=== PATIENT | female | born 1980 | race Caucasian/White ===

== ENCOUNTER 2017-06-21 00:37 | Emergency (ER) | payer MEDICAID ==
[~2017-06-21] VITALS: Ht 160 cm; Wt 120.2 kg
[~2017-06-21 00:37] MED LIST: ATORVASTATIN CA10 M1 PO; BACTROBAN2% TP; ESCITALOPRAM20 MG PO; METFORMIN 500M500 M1 PO; OMEPRAZOLE40 MG PO; TOPIRAMATE50 MG PO; TRIAMCINOL15 GM/TUBE TP
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
--- OUTSIDE RECORDS SUMMARY | 2017-06-21 01:29 | External Medical Summary Rpt ---
Author Author , RACQUEL Beltran RACQUEL Address Unknown Phone [email or web address] Team Providers Care Admittance Attendant Name Role Phone [employer], Unavailable Unavailable [facility] [employer] CAROLANN JAM, CAROLANN Unavailable Unavailable J[facility] Unavailable Unavailable DEPARTMENT, [facility] Unavailable Unavailable DEPARTMENT, [facility] RYLAND GRAY, Unavailable Unavailable RYLAND GRAY M L, Unavailable Unavailable Severo BAUER, GALDINO Unavailable Unavailable PEDRO CURE, CURE Unavailable Unavailable [facility], Unavailable Unavailable [facility] LASHON DECALVO, Unavailable Unavailable EARLINE V, LASHON DECALVO, EARLINE V REGINALDO JARAMILLO, CLINT, Unavailable Unavailable REGINALDO QUINONES LEANNE, JONI Unavailable Unavailable LEANNE RICO ANT, RICO Unavailable Unavailable ANT ALLI RICO E, Unavailable Unavailable ALLI RICO ANNE E, Unavailable Unavailable RAYSHAWN ALFARO GORMark DEN, GORE DEN Unavailable Unavailable GORE DEN, GORE DEN Unavailable Unavailable GARRETT LUCAS, GARRETT LUCAS Unavailable Unavailable BLU NAN, BLU Unavailable Unavailable NAN BLU NAN, BLU Unavailable Unavailable NAN PUJA CAAL, Unavailable Unavailable PUJA CAAL, Unavailable Unavailable [facility] Unavailable Unavailable INC, [facility] GARCIA MONISHA, GARCIA Unavailable Unavailable MONISHA JOYNER NERY, JOYNER NERY Unavailable Unavailable ANYA GABRIEL, JOYNER NERY Unavailable Unavailable KYLE JOYNER, Unavailable Unavailable KYLE JOYNER KEEF KIM Unavailable Unavailable [facility] Unavailable Unavailable [facility], [facility] Unavailable Unavailable [facility], [facility], Unavailable Unavailable [facility] & Unavailable [facility]available [facility] & Unavailable [facility]available [facility] Unavailable Unavailable [facility], [facility] Unavailable Unavailable [facility], [facility] STEVEN IMLLIGAN Unavailable Unavailable ITZEL [facility], [facility] Unavailable Unavailable CENTER, [facility] KATHLEEN BUCHANAN V, Unavailable Unavailable DEWAYNE KATHLEEN Perez [facility] Unavailable Unavailable SERVICES, [facility] Unavailable Unavailable CENTER,, [facility] Unavailable Unavailable [facility], [facility] Unavailable Unavailable ASSOCIAT, [facility] Unavailable Unavailable SURGERY, [facility] Unavailable Unavailable MEDICAL, [facility] Unavailable Unavailable MEDICAL CENTER, [facility] METHIERNO WATKINS P, Unavailable Unavailable MEESE THIERNO P CAMACHO THO, CAMACHO Unavailable Unavailable THO CAMACHO THO, CAMACHO Unavailable Unavailable THO NEUS ADITYA, NEUS ADITYA Unavailable Unavailable NEUS ADITYA, NEUS ADITYA Unavailable Unavailable NEUS, ELVIRA E, NEUS, Unavailable Unavailable ELVIRA E DIAZ OSMEL, DIAZ OSMEL Unavailable Unavailable [facility], Unavailable Unavailable [facility], [facility] Unavailable Unavailable LAB, [facility] Unavailable Unavailable LAB, [facility] LAB [facility], Unavailable Unavailable [facility], Unavailable Unavailable [facility], Unavailable Unavailable [facility], Unavailable [facility]available [facility] KING ROSA, KING Unavailable Unavailable ROSA JLJORDIN WORLEY, Unavailable Unavailable JLJORDIN WORLEY [facility], Unavailable Unavailable [facility] SHOWER GATICA, SHOWER Unavailable Unavailable GATICA SHOWER GATICA, SHOWER Unavailable Unavailable GATICA SHOWAKILAH PHILLIPS, Unavailable Unavailable SHOWAKILAH PHILLIPS BALLARD C, Unavailable Unavailable LAZARO AGARWAL [facility] Unavailable Unavailable EMERGENCY PH[facility], [facility] SALEH CHR, Unavailable Unavailable SALEH CHR SALEH CHR, Unavailable Unavailable SALEH CHR IGOR, CORTES, Unavailable Unavailable IGOR, CORTES SANDRO JO Unavailable Unavailable SANDRO SHELL Unavailable Unavailable SANDRO COLBERT Unavailable Unavailable CLINT GUDINO, Unavailable Unavailable CLINT JO, EDWARD COLLEEN Unavailable Unavailable JOHANNA LEON, Unavailable Unavailable JOHANNA LEON Purpose Continuity of Care Document - 01-28-2008 through 2016 Problems Code Diagnosis DOS Provider Status M542 CERVICALGIA 02-12-2017 [facility] M5412 RADICULOPAT 12-17-2016 [facility] [id number] LAC W/O FB 09-05-2016 [facility] DAMAGE NAIL INIT [id number] LAC W/O FB 09-05-2016 [facility], W/O DAMAGE PLLC NAIL INITIAL Z720 TOBACCO USE 09-05-2016 [facility] [id number] CHRONIC 06-19-2016 [facility] TENSION-TYP FAMILY E HEADACHE [facility] NOT INTRACTABLE R0683 SNORING 06-19-2016 [facility] Z0000 ENCOUNTER 02-10-2016 LABORATORY GEN ADULT [facility] OF MED EXAM [facility] W/O ABNORMAL FIND Z1151 ENCOUNTER 02-10-2016 [facility] FOR [facility] OF SCREENING [facility] FOR HUMAN PAPILLOMAVI SHAYLA Z131 ENCOUNTER 02-10-2016 [facility] FOR [facility] OF SCREENING [facility] FOR DIABETES MELLITUS R67838 ENCOUNTER 02-10-2016 [facility]AT[facility] FOR [facility] OF SCREENING [facility] FOR LIPOID DISORDERS Z136 ENCOUNTER 02-10-2016 LABORATORY SCREENING M[facility] OF FOR [facility] CARDIOVASCU LAR DISORDERS I49744 ACQUIRED 02-10-2016 LABORATORY ABSENCE OF MART[facility] OF BOTH CERVIX SUSSY H AND UTERUS A67009 ACQUIRED 02-10-2016 LABORATORY ABSENCE OF MART[facility] OF OVARIES [facility] BILATERAL O34878 OTHER 02-01-2016 [facility] MUSCLE [facility] K219 GASTRO-ESOP 01-25-2016 [facility] H REFLUX FAMILY DISEASE [facility] WITHOUT ESOPHAGITIS 16308 UNSPECIFIED 07-13-2015 [facility] ARTHROPATHY SURGERY , LOWER LEG 82372 PAIN IN 07-13-2015 [facility] JOINT GENERAL PELVIC SURGERY REGION AND THIGH 7242 LUMBAGO 07-13-2015 [facility] SURG[facility] 7243 SCIATICA 07-06-2015 [facility] PRIMARY CARE CENTER 90196 SPASM OF 07-06-2015 [facility] MUSCLE PRIMARY CARE CENTER 4611 ACUTE 06-04-2015 [facility] FRONTAL PRIMARY SINUSITIS CARE CENTER 7840 HEADACHE 06-04-2015 [facility] PRIMARY CARE CENTER 7862 COUGH 06-04-2015 [facility] PRIMARY CARE CENTER 71904 OBESITY, 02-10-2015 [facility] 4019 UNSPECIFIED 02-10-2015 [facility] HYPERTENSIO N 53288 OTHER 02-10-2015 [facility] FATIGUE V8542 BODY MASS 02-10-2015 [facility] 45.0-49.9 ADULT 6259 UNSPEC 06-02-2014 [facility] SYMPTOM PRIMARY ASSOC CARE CENTER W/FEMALE GENITAL ORGANS 6272 SYMPTOMATIC 06-02-2014 [facility] PRIMARY MENOPAUSAL/ CARE CENTER FEMALE CLIMACTERIC STATES 48150 DIARRHEA 06-02-2014 [facility] PRIMARY CARE CENTER V4577 ACQUIRED 06-02-2014 [facility] ABSENCE OF PRIMARY ORGAN CARE CENTER GENITAL ORGANS V7231 ROUTINE 06-02-2014 [facility] GYNECOLOGIC PRIMARY AL CARE CENTER EXAMINATION 54934 PAIN IN 03-12-2014 [facility] JOINT, GENERAL LOWER LEG SURGERY 14003 REGULAR 01-07-2014 ANYA GABRIEL ASTIGMATISM 28783 PAIN IN 10-10-2013 [facility] THO JOINT, ANKLE AND FOOT V7612 OTHER 08-20-2013 [facility] SCREENING REGIONAL MAMMOGRAM MEDICAL V074 HORMONE 07-23-2013 [facility] REPLACEMENT THERAPY 7089 UNSPECIFIED 07-07-2013 [facility] 6826 CELLULITIS 06-29-2013 [facility] AND ABSCESS CHR OF LEG EXCEPT FOOT 35348 MIGRAINE 10-07-2012 [facility] UNSP W/O INTRACT W/O STATUS MIGRAINOSUS 4619 ACUTE 09-11-2012 [facility] SINUSITIS, UNSPECIFIED 58254 PAIN IN 09-11-2012 NE[facility] AD[facility]A JOINT, SITE UNSPECIFIED 7245 UNSPECIFIED 09-11-2012 NE[facility] AD[facility] BACKACHE V0481 NEED 08-20-2012 [facility] PROPHYLACTI HEALTH C DEPARTMENT VACCINATION &INOCULATIO N FLU 45946 CONGENITAL 05-17-2012 [facility] UNSPECIFIED 2189 LEIOMYOMA 12-28-2011 SHOWER GATICA OF UTERUS, UNSPECIFIED 6146 PELVIC 12-28-2011 SHOWER GATICA PERITONEAL ADHESIONS, FEMALE 6160 CERVICITIS 12-28-2011 [facility] [place] [facility] ENDOCERVICI TIS 6202 OTHER AND 12-28-2011 [facility] UNSPECIFIED [place] INC OVARIAN CYST 6253 DYSMENORRHE 12-28-2011 SHOWER GATICA A V7284 UNSPECIFIED 12-22-2011 [facility] PRE-OPERATI MEDICAL VE EXAMINATION V7283 OTHER 12-14-2011 SHOWER G[facility]ICA SPECIFIED PRE-OPERATI VE EXAMINATION 19873 UNSPECIFIED 11-28-2011 BL[facility] GANGLION 7931 NONSPEC 08-27-2011 [place] OTH EXAM ASSOCIAT BODY STRUCT LUNG FIELD 75332 URGENCY OF 08-09-2011 LABORATORY URINATION & BIODIAGNOST ICS V7381 SPECIAL 08-09-2011 PATHOLOGY & SCREENING CYTOLOGY EXAMINATION LAB HUMAN PAPILVIRUS 2409 GOITER, 08-01-2011 [place] UNSPECIFIED [facility] ASSOCIAT 7224 DEGENERATIO 08-01-2011 [place] N OF [facility] CERVICAL ASSOCIAT INTERVERTEB RAL DISC 6264 IRREGULAR 07-27-2011 [facility] MENSTRUAL PRIMARY CYCLE CARE CENTER V7791 SCREENING 07-27-2011 [facility] FOR LIPOID PRIMARY DISORDERS CARE CENTER 2564 POLYCYSTIC 07-19-2011 [facility] OVARIES [facility]ARE CENTER 6250 DYSPAREUNIA 07-19-2011 [facility] 23353 GENERALIZED 07-18-2011 LABORATORY PAIN & BIODIAGNOST ICS V762 SCREENING 07-18-2011 [facility] FOR PRIMARY MALIGNANT CARE CENTER NEOPLASM OF THE CERVIX 87910 UNSPECIFIED 03-28-2011 [facility] PRIMARY ARTHROPATHY CARE CENTER SITE UNSPECIFIED 460 ACUTE 03-09-2011 [facility] NASOPHARYNG PRIMARY ITIS CARE CENTER 490 BRONCHITIS 02-10-2011 [facility] SPECIFIED MEDICAL ACUTE OR CHRONIC 04333 OTHER 02-10-2011 [place] DIS[facility] LUNG NOT ASSOCIAT ELSEWHERE CLASSIFIED 7841 THROAT PAIN 02-10-2011 [facility] 3540 CARPAL 12-12-2010 [facility] TUNNEL PRIMARY SYNDROME CARE CENTER 7273 OTHER 12-12-2010 [facility] BURSITIS PRIMARY DISORDERS CARE CENTER 24492 ESOPHAGEAL 10-04-2010 [facility] REFLUX PRIMARY CARE CENTER V679 UNSPECIFIED 10-04-2010 [facility] FOLLOW-UP PRIMARY EXAMINATION CARE CENTER 56781 UNSPECIFIED 09-07-2010 [facility] VAGINITIS PRIMARY AND CARE CENTER VULVOVAGINI TIS 6248 OTH SPEC 09-07-2010 [facility] NONINFLAMMA PRIMARY TORY CARE CENTER DISORDER VULVA&PERIN EUM 5206 DISTURBANCE 02-24-2010 [facility] ERUPTION 5680 PERITONEAL 12-01-2009 [facility] V252 STERILIZATI 12-01-2009 [facility] ANESTHESIA PSC V2509 OTH GENERAL 11-29-2009 [facility] PRIMARY CNSL&ADVICE CARE CONTRACEPT CENTERINC MANAGEMENT 04369 CHRONIC 10-20-2009 [facility] TENSION PRIMARY TYPE CARE HEADACHE CENTERINC V242 ROUTINE 10-20-2009 [facility]IMARY FOLLOW-UP CARE CENTERINC 29284 DIAB W/O 10-19-2009 [facility] COMP TYPE PRIMARY II/UNS NOT CARE STATED CENTERINC UNCNTRL 462 ACUTE 10-19-2009 [facility] PHARYNGITIS [facility]IMARY CARE CENTERINC V700 ROUTINE 10-19-2009 [facility] GENERAL PRIMARY MEDICAL CARE EXAM@HEALTH CENTERINC CARE FACL 91877 POST TERM 09-08-2009 [facility] PG DELIV PRIMARY W/WO CARE MENTION CENTERINC ANTPRTM COND V270 OUTCOME OF 09-08-2009 [facility] DELIVERY PRIMARY SINGLE CARE LIVEBORN CENTERINC 650 NORMAL 09-06-2009 [facility]IV[facility] H ANESTHESIA PSC V221 SUPERVISION 08-30-2009 [facility] OF OTHER PRIMARY NORMAL CARE CENTERINC V286 SCREENING 08-10-2009 [facility] 7821 RASH AND 07-23-2009 [facility] OTHER PRIMARY NONSPECIFIC CARE SKIN CENTERINC ERUPTION 7028 OTHER 06-28-2009 [facility] SPECIFIED PRIMARY DERMATOSES CARE CENTERINC 73889 UNS 04-30-2009 [facility] ABNORM MGMT PRIMARY MOTH CARE ANTPRTM CENTERINC COND/COMP V237 INSUFFICIEN 04-30-2009 [facility] T PRIMARY CARE CARE CENTERINC V222 03-24-2009 [facility] STATE, PRIMARY INCIDENTAL CARE CENTERINC 22637 REFLUX 02-24-2009 [facility] ESOPHAGITIS PRIMARY CARE CENTERINC 463 ACUTE 11-02-2008 Severo BAUER TONSILLITIS L 6269 UNS D/O 09-16-2008 [facility] MENSTRUATIO PRIMARY N&OTH ABN CARE BLEED FE CENTERINC GNT TRACT 53058 UNSPECIFIED 01-28-2008 [facility] Allergies, Adverse Reactions, Alerts Clinical Alert Notifications Alert Diabetes: no A1C in the last 6 months Diabetes: no eye exam in the last 365 days Diabetes: no influenza vaccine in the last 365 days Diabetes: no lipid panel in the last 365 days Diabetes: no urine protein screening in the last 365 days Medications Na ND Rx Da Fi Fi Am Da Di Ph RX Ph St me C No te ll ll ou ys ag ar # ys at rm s nt no ma ic us Or Da si cy ia de te s n re d OM 60 06 07 30 30 00 DE Ac EP 50 -0 -0 .0 00 AN ti RA 50 1- 7- 06 S ve ZO 06 20 20 51 PH LE 50 17 17 19 AR [address] CY 20 MG CA PS UL E AT 00 06 07 30 30 00 DE Ac OR 37 -0 -0 .0 00 AN ti VA 83 1- 7- [address] 95 20 20 51 PH AT 07 17 17 19 AR IN 7 37 MA CY 10 MG TA BL ET ME 23 06 07 30 30 00 DE Ac TF 15 -0 -0 .0 00 AN ti OR 50 1- 7- 00 06 S ve DC 10 20 20 51 PH N 21 17 17 19 AR HC 0 38 MA L CY 50 0 MG TA BL ET ME 23 04 05 30 30 00 DE Ac TF 15 -2 -2 .0 00 AN ti OR 50 6- 6- 00 06 S ve DC 10 20 20 51 PH N 21 17 17 19 AR HC 0 38 MA L CY 50 0 MG TA BL ET AT 00 04 05 30 30 00 DE Ac OR 37 -2 -2 .0 00 AN ti VA 83 6- 6- [address] 95 20 20 51 PH AT 07 17 17 19 AR IN 7 37 MA CY 10 MG TA BL ET OM 55 04 05 30 30 00 DE Ac EP 11 -2 -2 .0 00 AN ti RA 10 6- 6- 00 06 S ve ZO 15 20 20 51 PH LE 81 17 17 19 AR [address] CY 20 MG CA PS UL E AT 55 03 04 30 30 00 DE Ac OR 11 -2 -2 .0 00 AN ti VA 10 1- 8- [address] 12 20 20 51 PH AT 19 17 17 19 AR IN 0 37 MA CY 10 MG TA BL ET ME 23 03 04 30 30 00 DE Ac TF 15 -2 -2 .0 00 AN ti OR 50 1- 1- 06 S ve DC 10 20 20 51 PH N 21 17 17 19 AR HC 0 38 MA L CY 50 0 MG TA BL ET OM 60 03 04 30 30 00 DE Ac EP 50 -2 -2 .0 00 AN ti RA 50 1- 1- 06 S ve ZO 06 20 20 51 PH LE 50 17 17 19 AR [address] CY 20 MG CA PS UL E OM 45 03 04 28 28 00 DE Ac EP 80 -1 -1 .0 00 AN ti RA 20 0- 4- 00 06 S ve ZO 88 20 20 51 PH LE 83 17 17 13 AR [address] CY 20 MG TA BL ET AT 00 02 30 30 00 DE Ac OR 37 -1 -1 .0 00 AN ti VA 83 0- 0- [address] 95 20 20 49 PH AT 07 17 17 99 AR IN 7 38 MA CY 10 MG TA BL ET CY 59 01 02 60 30 00 DE Ac CL 74 -1 -1 .0 00 AN ti OB 60 0- 0- 00 06 S ve EN 17 20 20 49 PH ZA 71 17 17 99 AR ME 0 37 MA IN CY E 10 MG TA BL ET ME 23 02 60 30 00 DE Ac TF 15 -1 -1 .0 00 AN ti OR 50 0- 0- 00 06 S ve DC 10 20 20 50 PH N 21 17 17 81 AR HC 0 36 MA L CY 50 0 MG TA BL ET TO 68 02 60 30 00 DE Ac PI 38 -1 -1 .0 00 AN ti RA 20 0- 0- 00 06 S ve MA 13 20 20 50 PH TE 91 17 17 81 AR 4 37 MA 50 CY MG TA BL ET OM 37 01 02 28 28 00 DE Ac EP 20 -1 -1 .0 00 AN ti RA 50 0- 0- 00 06 S ve ZO 83 20 20 50 PH LE 70 17 17 81 AR [address] CY 20 MG TA BL ET CY 59 12 01 60 30 00 DE Ac CL 74 -0 -0 .0 00 AN ti OB 60 2- 9- 00 06 S ve EN 17 20 20 49 PH ZA 71 16 17 99 AR ME 0 37 MA IN CY E 10 MG TA BL ET AT 00 01 30 30 00 DE Ac OR 37 -0 -0 .0 00 AN ti VA 83 2- 9- [address] 95 20 20 49 PH AT 07 16 17 99 AR IN 7 38 MA CY 10 MG TA BL ET ME 23 12 01 60 30 00 DE Ac TF 15 -0 -0 .0 00 AN ti OR 50 2- 9- 00 06 S ve DC 10 20 20 49 PH N 21 16 17 99 AR HC 0 40 MA L CY 50 0 MG TA BL ET TO 68 12 01 60 30 00 DE Ac PI 38 -0 -0 .0 00 AN ti RA 20 2- 9- 00 06 S ve MA 13 20 20 49 PH TE 91 16 17 99 AR 4 41 MA 50 CY MG TA BL ET SE 16 10 10 3 30 30 DE 64 SH Ac RT 71 -1 -1 .0 AN 17 OW ti RA 40 7- 7- 00 S 34 ER ve LI 61 20 20 PH 6 NE 30 11 11 AR LA 5 MA UR HC CY A L L 10 IN 0 C MG TA BL ET CI 16 09 09 0 28 14 DE 64 SH Ac ME 71 -1 -1 .0 AN 15 OW ti OF 40 4- 5- 00 S 83 ER ve LO 65 20 20 PH 8 XA 20 11 11 AR LA CI 2 MA UR N CY A HC L L IN 50 C 0 MG TA B CL 63 09 09 0 84 14 DE 64 SH Ac IN 30 -1 -1 .0 AN 15 OW ti DA 40 4- 5- 00 S 83 ER ve MY 69 20 20 PH 7 CI 20 11 11 AR LA N 1 MA UR HC CY A L L 15 IN 0 C MG CA PS UL E DI 00 09 09 3 60 30 DE 64 GR Ac CL 78 -0 -0 .0 AN 15 OS ti OF 11 2- 2- 00 S 31 SE ve EN 78 20 20 PH 5 R AC 96 11 11 AR TI 0 MA MO SO CY TH D Y EC IN C 75 MG TA B TI 00 09 09 3 60 20 DE 64 GR Ac ZA 18 -0 -0 .0 AN 15 OS ti NI 54 2- 2- 00 S 31 SE ve DI 40 20 20 PH 4 R NE 05 11 11 AR TI 1 MA MO HC CY TH L Y 4 IN MG C TA BL ET ME 59 08 08 4 1. 1 MA [address] 76 -2 -2 00 YS 49 UN ti OX 24 4- 4- 0 09 G ve YP 53 20 20 LL 1 KA RO 70 11 11 E TH GE [address] N ER GY ON N E FA 15 DC 0 LY MG /M HE L AL TH BU 00 08 08 0 20 3 MA 60 YO Ac TA 59 -2 -2 .0 YS 49 UN ti LB 13 4- 4- 00 09 G ve -A 36 20 20 LL 2 KA CE 90 11 11 E TH TA 1 OB RY DC N N- GY CA N FF FA DC 50 LY -3 25 HE -4 AL 0 TH IB 53 08 08 1 90 30 DE 64 TU Ac UP 74 -2 -2 .0 AN 14 CK ti RO 60 3- 3- 00 S 85 ER ve FE 46 20 20 PH 3 N 60 11 11 AR DA 80 5 MA NA 0 CY MG IN TA C BL ET NA 00 05 05 2 60 30 DE 64 KE Ac ME 09 -0 -0 .0 AN 10 EF ti OX 30 3- 3- 00 S 43 ve EN 14 20 20 PH 4 KI 90 11 11 AR MB 50 5 MA ER 0 CY LY MG IN TA C BL ET SM 49 04 04 0 42 7 DE 64 KE Ac 34 -1 -1 .0 AN 09 EF ti CH 80 4- 4- 00 S 59 ve ES 72 20 20 PH 4 KI T 90 11 11 AR MB CO 9 MA ER NG CY LY ES TI IN ON C RE LI EF CA P AZ 59 03 03 0 6. 5 DE 64 ONOFRE Ac IT 76 -1 -1 00 AN 08 LL ti HR 23 8- 8- 0 S 37 IV ve OM 06 20 20 PH 8 AN YC 00 11 11 AR IN 1 MA CH CY RI 25 ST 0 IN IN MG C A M TA BL ET 00 01 03 1 30 30 DE 64 RA Ac 37 -1 -1 .0 AN 05 NK ti 81 7- 5- 00 S 40 IN ve 08 20 20 PH 2 90 11 11 AR WA 1 MA DE CY M IN C 00 01 01 1 30 30 DE 64 RA Ac 37 -1 -1 .0 AN 05 NK ti 81 7- 7- 00 S 40 IN ve 08 20 20 PH 2 90 11 11 AR WA 1 MA DE CY M IN C RA 53 11 12 1 60 30 DE 64 WI Ac NI 74 -0 -2 .0 AN 02 LS ti TI 60 9- 7- 00 S 49 ON ve DI 25 20 20 PH 2 NE 30 10 10 AR DO 5 MA NA 15 CY LD 0 R MG IN C TA BL ET RA 53 11 11 1 60 30 DE 64 WI Ac NI 74 -0 -0 .0 AN 02 LS ti TI 60 9- 9- 00 S 49 ON ve DI 25 20 20 PH 2 NE 30 10 10 AR DO 5 MA NA 15 CY LD 0 R MG IN C TA BL ET SM 49 10 10 1 45 7 DE 64 TU Ac 34 -1 -1 .0 AN 01 CK ti CL 80 4- 4- 00 S 33 ER ve OT 79 20 20 PH 8 RI 37 10 10 AR DA MA 6 MA NA ZO CY LE IN 1% C CR EA M FL 00 10 10 1 2. 14 DE 64 TU Ac UC 17 -1 -1 00 AN 01 CK ti ON 25 4- 4- 0 S 33 ER ve AZ 41 20 20 PH 7 OL 27 10 10 AR DA E 9 MA NA 15 CY 0 MG IN C TA BL ET ONOFRE 53 10 10 0 14 7 DE 64 TU Ac LF 74 -1 -1 .0 AN 01 CK ti AM 60 4- 4- 00 S 33 ER ve ET 27 20 20 PH 6 HO 20 10 10 AR DA XA 5 MA NA ZO CY LE -T IN MP C DS TA BL ET 00 08 08 2 9. 30 DE 63 GO Ac 17 -2 -2 00 AN 99 RE ti 30 4- 4- 0 S 12 ve 75 20 20 PH 8 DE 00 10 10 AR NI 0 MA SE CY A IN C SE 16 08 08 2 30 30 DE 63 GO Ac RT 71 -2 -2 .0 AN 99 RE ti RA 40 4- 4- 00 S 12 ve LI 61 20 20 PH 7 DE NE 30 10 10 AR NI 5 MA SE HC CY A L 10 IN 0 C MG TA BL ET SE 16 06 08 2 15 30 DE 63 GO Ac RT 71 -2 -0 .0 AN 96 RE ti RA 40 2- 4- 00 S 70 ve LI 61 20 20 PH 2 DE NE 30 10 10 AR NI 5 MA SE HC CY A L 10 IN 0 C MG TA BL ET 63 06 06 0 40 10 DE 63 GO Ac 30 -2 -2 .0 AN 96 RE ti 40 2- 2- 00 S 70 ve 65 20 20 PH 3 DE 70 10 10 AR NI 5 MA SE CY A IN C SE 16 06 06 2 15 30 DE 63 GO Ac RT 71 -2 -2 .0 AN 96 RE ti RA 40 2- 2- 00 S 70 ve LI 61 20 20 PH 2 DE NE 30 10 10 AR NI 5 MA SE HC CY A L 10 IN 0 C MG TA BL ET 00 06 06 2 9. 30 DE 63 GO Ac 09 -2 -2 00 AN 96 RE ti 30 2- 2- 0 S 70 ve 22 20 20 PH 1 DE 39 10 10 AR NI 0 MA SE CY A IN C 00 04 04 1 28 5 DE 40 SM Ac 60 -0 -2 .0 AN 60 IT ti 33 5- 0- 00 S 77 H ve 88 20 20 PH 0 KE 22 10 10 AR NN 1 MA ET CY H L IN C 00 04 04 1 28 5 DE 40 SM Ac 60 -0 -0 .0 AN 60 IT ti 33 5- 5- 00 S 77 H ve 88 20 20 PH 0 KE 22 10 10 AR NN 1 MA ET CY H L IN C PE 00 03 03 0 28 7 DE 63 PO Ac NI 78 -2 -2 .0 AN 92 PE ti CI 11 2- 2- 00 S 87 -B ve LL 65 20 20 PH 8 UR IN 51 10 10 AR NS 0 MA VK CY SA LL 50 IN Y 0 C MG TA BL ET ONOFRE 53 01 01 00 20 10 DE 63 ME Ac LF 48 -2 -2 .0 AN 90 ES ti AM 90 1- 8- 00 S 32 E ve ET 14 [address] HO 60 10 10 AR EP XA 5 MA HE ZO CY N LE P -T MP DS TA BL ET 00 01 01 00 20 3 DE 40 ME Ac 60 -0 -1 .0 AN 60 ES ti 33 6- 4- 00 S 17 E ve 88 [address] 12 10 10 AR EP 8 MA HE CY N P BU 00 11 11 00 45 15 DE 40 MA Ac TA 60 -1 -1 .0 AN 59 RK ti LB 32 0- 9- 00 S 79 ES ve -A 54 20 20 PH 8 BE CE 43 09 09 AR RY TA 2 MA DC CY HATCH N- RO CA LD FF V 50 -3 25 -4 0 IB 55 10 11 00 30 10 DE 63 ME Ac UP 11 -1 -0 .0 AN 86 ES ti RO 10 4- 5- 00 S 01 E ve FE [address] N 40 09 09 AR EP 80 5 MA HE 0 CY N MG P TA BL ET 63 07 07 00 28 7 DE 63 ME Ac 30 -1 -1 .0 AN 81 ES ti 40 0- 6- 00 S 97 E ve 65 [address] 70 09 09 AR EP 5 MA HE CY N P 59 06 06 00 30 30 DE 63 ME Ac 63 -0 -1 .0 AN 80 ES ti 00 8- 8- 00 S 82 E ve [address] 69 09 09 AR EP 0 MA HE CY N P FE 00 04 06 00 90 30 DE 63 ME Ac RR 60 -2 -1 .0 AN 80 ES ti OU 30 9- 8- 00 S 82 E ve S 17 [address] ONOFRE 92 09 09 AR EP LF 9 MA HE AT CY N E P 32 5 MG TA BL ET 59 04 05 00 30 30 DE 63 DE Ac 63 -2 -2 .0 AN 79 L ti 00 2- 1- 00 S 10 CA ve [address] 69 09 09 AR IL 0 MA LO CY DE CA LV O MA RI A IS AB EL V 59 04 05 00 30 30 DE 63 DE Ac 63 -2 -0 .0 AN 79 L ti 00 2- 7- 00 S 10 CA ve [address] 69 09 09 AR IL 0 MA LO CY DE CA LV O MA RI A IS AB EL V ME 37 12 12 00 28 28 RE 65 BR Ac IL 00 -0 -1 .0 YN 90 IN ti OS 00 1- 8- 00 OL 91 DL ve EC 45 20 20 DS EY 50 08 08 M OT 3 PH L C AR 20 MA .6 CY MG TA BL ET 63 12 12 00 30 10 DE 63 BR Ac 30 -0 -1 .0 AN 74 IN ti 40 8- 8- 00 S 07 DL ve 71 20 20 PH 1 EY 32 08 08 AR M 0 MA L CY ME 60 12 12 00 30 15 DE 63 BR Ac LO 50 -0 -1 .0 AN 74 IN ti XI 52 8- 8- 00 S 07 DL ve CA 55 20 20 PH 2 EY M 30 08 08 AR M 7. 1 MA L 5 CY MG TA BL ET 00 12 12 00 30 30 RE 65 BR Ac 55 -0 -1 .0 YN 90 IN ti 50 1- 8- 00 OL 92 DL ve 87 20 20 DS EY 70 08 08 M 4 PH L AR MA CY 49 10 11 00 30 30 DE 63 No Ac 88 -2 -0 .0 AN 72 t ti 40 4- 7- 00 S 33 Av ve 73 20 20 PH 0 ai 41 08 08 AR la 1 MA bl CY e YA 50 03 04 00 28 28 DE 63 No Ac Z 41 -3 -1 .0 AN 63 t ti 28 90 1- 0- 00 S 85 Av ve 40 20 20 PH 1 ai TA 50 08 08 AR la BL 3 MA bl ET CY e Immunization Name Date Rout CVX Reac Dose Comm Prov Is Faci e tion ent ider Refu lity Give sed n IIV3 09-2 141 BRAC No BRAC 5-20 TEJAS TEJAS VACC 12 CO CO INE HEAL HEAL SPLI TH TH T DEPA DEPA VIRU RTME RTME S NT NT 0.5 ML DOSA GE IM USE Procedures Procedure DOS Code Location Performer Comment RADEX 78359 RADIOLOGY CURE SPINE 7 INC CERVICAL 4 OR 5 VIEWS SIMPLE 93901 MARLYN QUINONES REPAIR 6 PHYSICIAN LEANNE [facility] K/AX/HENRIK T/TRUNK 2.5CM/< IM ADM 42142 RAFY [facility]ILLMAN PRQ ID 6 [facility] SUBQ/IM INC INC NJXS 1 VACCINE COMPREHEN 56222 [facility] SIVE 6 [facility] PANEL LIPOPROTE 67494 LAB [facility] IN BLOOD 6 SUSSY SUSSY [facility] NUMBERS & [place] [address] [facility] THYROID 6 SUSSY [facility] STIMULATI [facility] NG HORMONE TSH CYTP C/V 97294 LABORATOR LABORATOR AUTO THIN 6 Y MARTIN OF Y MARTIN OF LYR SUSSY SUSSY PREPJ SCR H H MNL RESCR PHYS IADNA 42180 LABORATOR LABORATOR HUMAN 6 Y [facility] HIGH-RISK TYPES LIPID 27874 LAB [facility] PANEL 6 SUSSY SUSSY [facility] RADEX 38993 ALYSE ZAVALA SPINE 6 FAMILY CERVICAL HEALTH 2 OR 3 CTR VIEWS RADEX 65219 RADIOLOGY STEVEN SPINE 6 INC ITZEL CERVICAL 4 OR 5 VIEWS INJECTION J1885 ALYSE GARRETT LUCAS 6 [facility] [place] INE PER 15 MG THERAPEUT 77909 ALYSE ZAVALA IC 6 FAMILY PROPHYLAC HEALTH TIC/DX CTR INJECTION SUBQ/IM RADEX 74258 LUIS ANTHONYS SPINE 5 W GENERAL LUMBOSACR SURGERY AL 2/3 VIEWS RADEX HIP 45784 LUIS DIAZ OSMEL 5 W GENERAL UNILATERA SURGERY L COMPLETE MINIMUM 2 VIEWS INJ J0702 ALYSE ZAVALA BETAMETHA 5 PRIMARY SONE CARE ACETATE & CENTER PHOSPHATE 3 MG THERAPEUT 33536 ALYSE ZAVALA IC 5 PRIMARY PROPHYLAC CARE TIC/DX CENTER INJECTION SUBQ/IM 25 [id number] [facility] 5 DIAGNOSTI DIAGNOSTI INCLUDES CS CS FRACTIONS IF PERFORMED GENERAL 12162 [facility] 5 DIAGNOSTI DIAGNOSTI PANEL CS CS COLLECTIO 51058 [facility] N VENOUS 5 DIAGNOSTI DIAGNOSTI BLOOD CS CS VENIPUNCT URE INJECTION J1885 ALYSE CO GORE DEN 4 PRIMARY KETOROLAC CARE CENTER TROMETHAM INE PER 15 MG THERAPEUT 23433 ALYSE CO GORE DEN IC 4 PRIMARY PROPHYLAC CARE TIC/DX CENTER INJECTION SUBQ/IM URNLS DIP 15326 LAB MARTIN LAB MARTIN 4 SUSSY SUSSY STICK/TAB HOLDINGS HOLDINGS LET RGNT AUTO W/O MICROSCOP Y SEDIMENTA 80308 LAB MARTIN LAB MARTIN TION RATE 4 SUSSY SUSSY RBC HOLDINGS HOLDINGS AUTOMATED CULTURE 48990 LAB MARTIN LAB MARTIN BACTERIAL 4 SUSSY SUSSY HOLDINGS HOLDINGS QUANTTATI VE COLONY COUNT URINE BLOOD 60680 LAB MARTIN LAB MARTIN COUNT 4 SUSSY SUSSY COMPLETE HOLDINGS HOLDINGS AUTO&AUTO DIFRNTL WBC RADIOLOGI 17957 LUIS BOLIVAR C 4 W GENERAL EXAMINATI SURGERY ON KNEE 1/2 VIEWS ARTHROCEN 23473 LUIS BOLIVAR TESIS 4 W GENERAL ASPIR&/IN SURGERY J MAJOR JT/BURSA W/O US INJECTION J3301 LUIS BOLIVAR 4 W GENERAL TRIAMCINO SURGERY LONE ACETONIDE NOS 10 MG OPHTH 67664 [facility] 4 XM&EVAL COMPRHNSV ESTAB PT 1/> RADEX 49464 JANICE CAMACHO FOOT 3 THO THO COMPLETE MINIMUM 3 VIEWS SCREENING G0202 DONNA THOMPSON 3 EIDER AFUA EIDER AFUA MAMMOGRAP HY COLT INCL CAD WHEN PERFORMD COMPUTER- 77553 DONNA THOMPSON AIDED 3 EIDER AFUA EIDER AFUA DETECTION SCREENING MAMMOGRAP HY THERAPEUT 06800 NEUS ADITYA NEUS ADITYA IC 2 PROPHYLAC TIC/DX INJECTION SUBQ/IM INJECTION J1885 NEUS ADITYA NEUS ADITYA 2 KETOROLAC TROMETHAM INE PER 15 MG INJECTION J1885 NEUS ADITYA NEUS ADITYA 2 KETOROLAC TROMETHAM INE PER 15 MG THERAPEUT 39456 NEUS ADITYA NEUS ADITYA IC 2 PROPHYLAC TIC/DX INJECTION SUBQ/IM THERAPEUT 66467 NEUS ADITYA NEUS ADITYA IC 2 PROPHYLAC TIC/DX INJECTION SUBQ/IM INJECTION J1885 NEUS ADITYA NEUS ADITYA 2 KETOROLAC TROMETHAM INE PER 15 MG INJECTION J1040 NEUS ADITYA NEUS ADITYA 2 METHYLPRE DNISOLONE ACETATE 80 MG IIV3 25096 BRACKEN BRACKEN VACCINE 2 CO [employer] HEALTH SPLIT VIRUS 0.5 DEPARTMEN DEPARTMEN ML T T DOSAGE IM USE RADEX 14138 [facility] SPINE 2 LUMBOSACR DIAGNOSTI DIAGNOSTI AL C LOVELADY, CENTER, MINIMUM 4 VIEWS RADIOLOGI 13635 [facility] 2 [facility] EXAMINATI RADIOLOGY ON ASSOCIAT SACROILIA C JNTS <3 VIEWS RADEX 21914 [facility] SACRUM & 2 COCCYX DIAGNOSTI DIAGNOSTI MINIMUM 2 C L[place]ELADY, CENTER, VIEWS INJECTION J1885 NEUS ADITYA NEUS ADITYA 2 KETOROLAC TROMETHAM INE PER 15 MG THERAPEUT 28934 NEUS ADITYA NEUS ADITYA IC 2 PROPHYLAC TIC/DX INJECTION SUBQ/IM ANESTHESI 86206 COMMONWEA RICO A 2 LTH ANT INTRAPERI ANESTHESI TONEAL A PSC LOWER ABD W/LAPS NOS LEVEL V 71188 [employer] CAROLANN SURG 2 [place] INC JAM PATHOLOGY GROSS&LEANNE ROSCOPIC EXAM LAPS 70355 SHOWER SHOWER TOTAL 2 GATICA GATICA HYSTERECT 250 GM/< W/RMVL TUBE/OVAR Y URNLS DIP 39966 MEADOWVIE MEADOWVIE 2 W W STICK/TAB REGIONAL REGIONAL LET MEDICAL MEDICAL REAGENT AUTO MICROSCOP Y BLOOD 38014 MEADOWVIE MEADOWVIE COUNT 2 W W COMPLETE REGIONAL REGIONAL AUTO&AUTO MEDICAL MEDICAL DIFRNTL WBC COLLECTIO 66457 LUIS SMITH N VENOUS 2 W W BLOOD [facility] URE COMPREHEN 91295 LUIS SMITH SIVE 2 W W METABOLIC REGIONAL [facility] MEDICAL MEDICAL RADIOLOGI 18108 [facility]EN[place]URGPATRICE Martinez EXAM 2 PEDRO KNEE RADIOLOGY COMPLETE ASSOCIAT 4/MORE VIEWS RADIOLOGI 14464 [place] [facility] 1 EIDER AFUA EXAMINATI RADIOLOGY ON CHEST ASSOCIAT [place] FRONTAL URNLS DIP 47304 LABORATOR LABORATOR 1 Y & Y & STICK/TAB BIODIAGNO BIODIAGNO LET STICS STICS REAGENT AUTO MICROSCOP Y IADNA 14017 PATHOLOGY PATHOLOGY [place]APILLOMA 1 & & VIRUS CYTOLOGY CYTOLOGY HUMAN LAB LAB AMPLIFIED PROBE TQ CYTP C/V 34029 LABORATOR LABORATOR AUTO THIN 1 Y & Y & LYR BIODIAGNO BIODIAGNO PREPJ SCR STICS STICS MNL RESCR PHYS CULTURE 54865 LABORATOR LABORATOR BACTERIAL 1 Y & Y & BIODIAGNO BIODIAGNO QUANTTATI [place] [address] [facility] CERVICAL 1 MONISHA SPINE W/O RADIOLOGY CONTRAST ASSOCIAT MATERIAL MRI BRAIN 62853 [facility] BRAIN 1 MONISHA STEM W/O RADIOLOGY CONTRAST ASSOCIAT MATERIAL GLUCOSE 91982 LABORATOR LABORATOR POST 1 Y & Y & GLUCOSE BIODIAGNO [place] [address] LABORATOR LABORATOR INSULIN 1 Y & Y & TOTAL BIODIAGNO BIODIAGNO STICS STICS COLLECTIO 22770 ALYSE CO YOUNG COLLEEN N VENOUS 1 PRIMARY BLOOD [place] [address] LABORATOR LABORATOR TESTOSTER 1 Y & Y & ONE TOTAL BIODIAGNO [place] [address] LABORATOR LABORATOR TESTOSTER 1 Y & Y & ONE FREE BIODIAGNO BIODIAGNO STICS STICS LIPID 20057 LABORATOR LABORATOR PANEL 1 Y & Y & BIODIAGNO BIODIAGNO STICS STICS GLUCOSE 97496 LABORATOR LABORATOR QUANTITAT 1 Y & Y & CHANDRAKANT BLOOD BIODIAGNO BIODIAGNO XCPT STICS STICS REAGENT STRIP HEMOGLOBI 17590 LABORATOR LABORATOR N 1 Y & Y & GLYCOSYLA BIODIAGNO BIODIAGNO [place] A1[place] [address] ALYSE SCHILLING EDWARD MACIAS TRANSVAGI 1 PRIMARY NAL CARE CENTER THERAPEUT 16485 ALYSE SCHILLING EDWARD COLLEEN IC 1 PRIMARY PROPHYLAC CARE TIC/DX CENTER INJECTION SUBQ/IM INJECTION J1885 ALYSE SCHILLING SANDRO 1 PRIMARY DON KETOROLAC CARE CENTER TROMETHAM INE PER 15 MG URINE 25668 ALYSE JO 1 PRIMARY DON TEST CARE VISUAL CENTER COLOR CMPRSN METHS THERAPEUT 13116 ALYSE JO IC 1 PRIMARY DON PROPHYLAC CARE TIC/DX CENTER INJECTION SUBQ/IM COLLECTIO 12659 ALYSE SCHILLING N VENOUS 1 PRIMARY PRIMARY BLOOD CARE CARE VENIPUNCT CENTER CENTER URE BASIC 20406 LABORATOR LABORATOR METABOLIC 1 Y & Y & PANEL BIODIAGNO BIODIAGNO CALCIUM STICS STICS TOTAL URNLS DIP 11750 LABORATOR LABORATOR 1 Y & Y & STICK/TAB BIODIAGNO BIODIAGNO LET STICS STICS REAGENT AUTO MICROSCOP Y CULTURE 67130 LABORATOR LABORATOR BACTERIAL 1 Y & Y & BIODIAGNO BIODIAGNO QUANTTATI STICS STICS VE COLONY COUNT URINE IADNA 30495 LABORATOR LABORATOR CHLAMYDIA 1 Y & Y & BIODIAGNO BIODIAGNO TRACHOMAT STICS STICS IS AMPLIFIED PROBE TQ BLOOD 72659 LABORATOR LABORATOR COUNT 1 Y & Y & COMPLETE BIODIAGNO BIODIAGNO AUTO&AUTO STICS STICS DIFRNTL WBC IADNA 96336 LABORATOR LABORATOR NEISSERIA 1 Y & Y & BIODIAGNO BIODIAGNO GONORRHOE STICS ST[place] [address] LABORATOR LABORATOR THYROID 1 Y & Y & STIMULATI BIODIAGNO BIODIAGNO NG STICS STICS HORMONE TSH C-REACTIV 10139 LABORATOR LABORATOR E PROTEIN 1 Y & Y & BIODIAGNO BIODIAGNO STICS STICS RHEUMATOI 76568 LABORATOR LABORATOR D FACTOR 1 Y & Y & QUANTITAT BIODIAGNO BIODIAGNO CHANDRAKANT STICS STICS COLLECTIO 14064 ALYSE TIAN N VENOUS 1 PRIMARY BLOOD CARE VENIPUNCT CENTER URE IAADIADOO 58123 ALYSE BENNETT ASMITA 1 PRIMARY STREPTOCO CARE CCUS CENTER GROUP A IAADIADOO 68975 MEADOWVIE MEADOWVIE 1 W W STREPTOCO REGIONAL REGIONAL CCUS MEDICAL MEDICAL GROUP A RADIOLOGI 44906 [facility] EXAM 1 EIDER AFUA CHEST 2 RADIOLOGY VIEWS ASSOCIAT FRONTAL&L ATERAL CUL 57376 MEADOWVIE MEADOWVIE PRSMPTV 1 W W PTHGNC [facility] ORGANISM MEDICAL MEDICAL SCRN W/COLONY ESTIMJ SMR PRIM 01061 ALYSE JO SRC WET 0 PRIMARY DON [facility] NFCT AGT CENTER CUL BACT 57052 LABORATOR LABORATOR XCPT 0 Y & Y & URINE BIODIAGNO BIODIAGNO BLOOD/STO STICS STICS OL AEROBIC ISOL CULTURE 03227 LABORATOR LABORATOR BACTERIAL 0 Y & Y & ANY BIODIAGNO BIODIAGNO SOURCE STICS STICS ANAEROBIC ISO&ID SMR PRIM 40229 LABORATOR LABORATOR SRC 0 Y & Y & GRAM/GIEM BIODIAGNO BIODIAGNO SA STAIN STICS STICS BCT FUNGI/RONALD L DEEP D9220 LAZARO AGARWAL, SEDATION/ 0 Bertrand Martinez GENERAL ANESTHESI A-1ST 30 MINUTES RADIOLOGI 65417 Michelle DELACRUZ EXAM 0 Bertrand Martinez TEETH COMPLETE FULL MOUTH ANES IPER 87138 AJAYA TAQUERIA RICOR ABD 0 LTH ALLI E W/LAPS ANESTHESI TUBAL A PSC LIGATION/ TRANSECT OCCLUSION 19861 LUIS OSBORNEWVIE FLP TUBE 0 W W DEV REGIONAL REGIONAL VAG/SUPRA MEDICAL MEDICAL PUBIC CENTER CENTER APPR LAPAROSCO 57433 ALYSE SCHILLING MEESE, PY 0 PRIMARY THIERNO P FULGURATI CARE ON CENTERINC OVIDUCTS URINE 82601 MEADOWVIE MEADOWVIE 0 W W TEST [facility] VISUAL MEDICAL MEDICAL COLOR CENTER CENTER CMPRSN METHS COLLECTIO 97977 MEADOWVIE MEADOWVIE N VENOUS 0 W W BLOOD [facility] VENIPUNCT MEDICAL MEDICAL URE CENTER CENTER URNLS DIP 36867 MEADOWVIE MEADOWVIE 0 W W STICK/TAB [facility] LET [facility] MEDICAL REAGENT CENTER CENTER AUTO MICROSCOP Y POTASSIUM 26602 MEADOWVIE MEADOWVIE SERUM 0 W W PLASMA/WH [facility] OLE BLOOD MEDICAL MEDICAL CENTER CENTER CULTURE 69865 MEADOWVIE MEADOWVIE BACTERIAL 0 W W [facility] QUANTTATI [facility] MEDICAL VE COLONY CENTER CENTER COUNT URINE BLOOD 61141 MEADOWVIE MEADOWVIE COUNT 0 W W COMPLETE [facility] AUTO&AUTO MEDICAL MEDICAL DIFRNTL CENTER CENTER WBC BLOOD 04768 MEADOWVIE MEADOWVIE COUNT 9 W W COMPLETE [facility] AUTO&AUTO MEDICAL MEDICAL D[place] [address] MEADOWVIE MEADOWVIE THYROID 9 W W STIMULATI [facility] NG [facility] MEDICAL HORMONE CENTER CENTER TSH HEMOGLOBI 31943 MEADOWVIE MEADOWVIE N 9 W W GLYCOSYLA [facility] CARI [address] CENTER LIPID 76378 MEADOWVIE MEADOWVIE PANEL 9 W W [facility] CENTER COLLECTIO 00681 MEADOWVIE MEADOWVIE N VENOUS 9 W W BLOOD [facility] VENIPUNCT [facility] MEDICAL URE CENTER CENTER BASIC 28719 MEADOWVIE MEADOWVIE METABOLIC 9 W W PANEL [facility] CALCIUM MEDICAL MEDICAL TOTAL CENTER CENTER INJECTION J1885 ALYSE SEARS, 9 PRIMARY ELVIRA E KETOROLAC CARE CENTERINC TROMETHAM INE PER 15 MG THERAPEUT 80822 ALYSE SEARS, IC 9 PRIMARY ELVIRA E PROPHYLAC CARE TIC/DX CENTERINC INJECTION SUBQ/IM OPHTH 10790 [facility] 9 VISION KYLE A XM&EVAL COMPRHNSV ESTAB PT 1/> HOSPITAL 45242 ALYSE SPIVEY, DISCHARGE 9 PRIMARY THIERNO P DAY CARE MANAGEMEN CENTERINC T 30 MIN/< SBSQ 12350 ALYSE SCHILLING [facility] 9 PRIMARY THIERNO P CARE/DAY CARE 15 CENTERINC MINUTES NEURAXIAL 53255 COMMONWEA ROSA MARIAON LABOR 9 LTH , CORA ANALG/ANE ANESTHESI S PLND A PSC VAGINAL DELIVERY VAGINAL 55449 ALYSE SPIVEY, DELIVERY 9 PRIMARY THIERNO P ONLY CARE CENTERINC MEDICAL 734 LUIS SMITH INDUCTION 9 W W OF LABOR [facility] CENTER OTHER 7359 LUIS SMITH MANUALLY 9 W W ASSISTED [facility] CENTER URNLS DIP 72717 ALYSE SPIVEY, 9 PRIMARY THIERNO P STICK/TAB CARE LET RGNT CENTERINC NON-AUTO W/O MICRSCP URNLS DIP 73855 ALYSE PARIKH, 9 PRIMARY JORDIN A STICK/TAB CARE LET RGNT CENTERINC NON-AUTO W/O MICRSCP 00495 ALYSE PARIKH, NONSTRESS 9 PRIMARY JORDIN A TEST CARE CENTERINC URNLS DIP 55330 ALYSE JO, 9 PRIMARY CLINT R STICK/TAB CARE LET RGNT CENTERINC NON-AUTO W/O MICRSCP URNLS DIP 92157 ALYSE LEON, 9 PRIMARY JOHANNA STICK/TAB CARE LET RGNT CENTERINC NON-AUTO W/O MICRSCP CUL 34148 LUIS SMITH PRSMPTV 9 [facility] CENTER W/COLONY ESTIMJ URNLS DIP 76358 ALYSE LEON, 9 PRIMARY JOHANNA STICK/TAB CARE LET RGNT CENTERINC NON-AUTO W/O MICRSCP URNLS DIP 07202 ALYSE NEW, 9 PRIMARY KRISTAL J STICK/TAB CARE LET RGNT CENTERINC NON-AUTO W/O MICRSCP COLLECTIO 03734 ALYSE NEW, N 9 PRIMARY KRISTAL J CAPILLARY CARE BLOOD CENTERINC SPECIMEN URNLS DIP 67223 ALYSE HOOVER, 9 PRIMARY AKILAH L STICK/TAB CARE LET RGNT CENTERINC NON-AUTO W/O MICRSCP GLUCOSE 18152 [facility] POST 9 [place] INC GLUCOSE DOSE URNLS DIP 60549 ALYSE JARAMILLO, 9 PRIMARY REGINALDO W STICK/TAB CARE LET RGNT CENTERINC NON-AUTO W/O MICRSCP COLLECTIO 98179 ALYSE JARAMILLO, N VENOUS 9 PRIMARY REGINALDO W BLOOD CARE VENIPUNCT CENTERINC URE URNLS DIP 00291 ALYSE SCHILLING MEESE, 9 PRIMARY THIERNO P STICK/TAB CARE LET RGNT CENTERINC NON-AUTO W/O MICRSCP [place] PREG 72108 ALYSE LINDQUISTESE, UTERUS 9 PRIMARY THIERNO P W/DETAIL CARE CENTERINC SERGIO 1ST GESTATION CYTP 08189 [facility] CERV/VAG 9 [facility] AUTO THIN LAYER PREP MNL SCREEN IADNA 55093 [facility] CHLAMYDIA 9 [facility] TRACHOMAT IS AMPLIFIED PROBE TQ IADNA 29423 [facility] NEISSERIA 9 [facility] GONORRHOE AE AMPLIFIED PROBE TQ URNLS DIP 85670 ALYSE LEON, 9 PRIMARY JOHANNA STICK/TAB CARE LET RGNT CENTERINC NON-AUTO W/O MICRSCP URNLS DIP 28460 ALYSE LEON, 9 PRIMARY JOHANNA STICK/TAB CARE LET RGNT CENTERINC NON-AUTO W/O MICRSCP COLLECTIO 93732 ALYSE LEON, N VENOUS 9 PRIMARY JOHANNA [place] [address] ALYSE LEON, 9 PRIMARY JOHANNA UTERUS 14 CARE WK CENTERINC TRANSABDL GESTAT URINE 26514 ALYSE SCHILLING DEL 9 PRIMARY KENNEY TEST CARE DECALVO, VISUAL CENTERINC LENA COLOR NGOZI V CMPRSN METHS DESTRUCTI 22317 [facility]ALTH IGOR, ON 8 POINT CORTES PREMALIGN FAMILY ANT CARE, LESION INC. 1ST Encounters Encounter Start End Date Code Location Performer Type Date EMERGENCY 05477 AHMET JO 7 7 URIEL GUERRERO EMERGENCY T VISIT PHYS HIGH/URGE NT SEVERITY EMERGENCY 56780 MARLYN QUINONES 6 6 PHYSICIAN LEANNE DEPARTMEN S, PLLC T VISIT MODERATE SEVERITY [facility]OSPITAL [facility] - 6 6 [facility] OUTPATIEN INC T OFFICE 81877 ALYSE GARRETT LUCAS OUTPATIEN 6 6 FAMILY T VISIT HEALTH 15 CTR MINUTES OFFICE 14193 ALYSE GARRETT LUCAS OUTPATIEN 6 6 FAMILY T VISIT HEALTH 15 CTR MINUTES OFFICE 34844 ALYSE ZAVALA OUTPATIEN 6 6 FAMILY T VISIT HEALTH 15 CTR MINUTES OFFICE 72404 ALYSE ZAVALA OUTPATIEN 6 6 FAMILY T VISIT HEALTH 25 CTR MINUTES OFFICE 89363 LUIS BOLIVAR OUTPATIEN 5 5 W GENERAL T VISIT SURGERY 15 MINUTES OFFICE 22519 ALYSE GARRETT LUCAS OUTPATIEN 5 5 PRIMARY T VISIT CARE 25 CENTER MINUTES OFFICE 61720 ALYSE ZAVALA OUTPATIEN 5 5 PRIMARY T VISIT CARE 15 CENTER MINUTES OFFICE 11383 ALYSE DRAPER DEN OUTPATIEN 5 5 PRIMARY T VISIT CARE 15 CENTER MINUTES OFFICE 85039 ALYSE DRAPER DEN OUTPATIEN 4 4 PRIMARY T VISIT CARE 15 CENTER MINUTES OFFICE 37874 ALYSE SCHILLING SHOWER OUTPATIEN 4 4 PRIMARY GATICA T VISIT CARE 25 CENTER MINUTES PERIODIC 93503 ALYSE SCHILLING SHOWER PREVENTIV 4 4 PRIMARY GATICA E MED EST CARE PATIENT CENTER 18-39 YRS OFFICE 71470 LUIS BOLIVAR OUTPATIEN 4 4 W GENERAL T NEW 30 SURGERY MINUTES HOSPITAL LUIS - 3 3 W OUTPATIEN REGIONAL T MEDICAL OFFICE 76184 BONNY DEN OUTPATIEN 3 3 T VISIT 15 MINUTES EMERGENCY 06808 NELIDA JO 3 3 EMERGENCY MAINE DEPARTMEN SERVICES T VISIT HIGH/URGE NT SEVERITY EMERGENCY 96356 THERESE SALEH 3 3 CHR CHR DEPARTMEN T VISIT HIGH/URGE NT SEVERITY OFFICE 04630 NEUS ADITYA OUTPATIEN 2 2 T VISIT 25 MINUTES OFFICE 36580 NEUS ADITYA OUTPATIEN 2 2 T VISIT 25 MINUTES [facility]OSP[facility] - 2 2 W OUTPATIEN REGIONAL T MEDICAL OFFICE 72275 SHOWER SHOWER OUTPATIEN 2 2 GATICA GATICA T VISIT 40 MINUTES OFFICE 00678 BLU BLU OUTPATIEN 2 2 NAN NAN T VISIT 25 MINUTES OFFICE 93745 ALYSE LEON COLLEEN OUTPATIEN 1 1 PRIMARY T VISIT CARE 15 CENTER MINUTES OFFICE 45819 ALYSE LEON COLLEEN OUTPATIEN 1 1 PRIMARY T VISIT CARE 15 CENTER MINUTES PERIODIC 72225 ALYSE JO PREVENTIV 1 1 PRIMARY DON E MED EST CARE PATIENT CENTER 18-39 YRS OFFICE 48142 ALYSE TIAN OUTPATIEN 1 1 PRIMARY T VISIT CARE 15 CENTER MINUTES OFFICE 75541 ALYSE TIAN OUTPATIEN 1 1 PRIMARY T VISIT CARE 15 CENTER MINUTES EMERGENCY 35031 NELIDA SALEH 1 1 EMERGENCY CHR DEPARTMEN SERVICES T VISIT HIGH/URGE NT SEVERITY HOSPITAL LUIS - 1 1 W OUTPATIEN REGIONAL T MEDICAL EMERGENCY 57814 LUIS 1 1 W DEPARTMEN REGIONAL T VISIT MEDICAL MODERATE SEVERITY OFFICE 94246 ALYSE DAWSONIN OUTPATIEN 1 1 PRIMARY WAD T VISIT CARE 15 CENTER MINUTES OFFICE 53255 ALYSE JO OUTPATIEN 0 0 PRIMARY DON T VISIT CARE 15 CENTER MINUTES OFFICE 59348 ALYSE JO OUTPATIEN 0 0 PRIMARY DON T VISIT CARE 15 CENTER MINUTES OFFICE 74200 LAZARO AGARWAL, OUTPATIEN 0 0 Bertrand Martinez T NEW 20 MINUTES HOSPITAL MEADOWVIE - 0 0 W [facility] OFFICE 12623 ALYSE SPIVEY, OUTPATIEN 0 0 PRIMARY THIERNO P T VISIT CARE 25 CENTERINC MINUTES HOSPITAL MEADOWVIE - 0 0 W [facility] HOSPITAL MEAWVIE - 9 9 W [facility] OFFICE 44082 ALYSE SPIVEY OUTPATIEN 9 9 PRIMARY THIERNO P T VISIT CARE 25 CENTERINC MINUTES OFFICE 69807 VICKI CARTERPATIEN 9 9 PRIMARY ELVIRA E T VISIT CARE 25 CENTERINC MINUTES OFFICE 28019 ALYSE QUINTEROS OUTPATIEN 9 9 PRIMARY Y, KATHLEEN T VISIT CARE V 15 CENTERINC MINUTES HOSPITAL MEAWVIE - 9 9 W [facility] OFFICE 28444 ALYSE SPIVEY OUTPATIEN 9 9 PRIMARY THIERNO P T VISIT CARE 15 CENTERINC MINUTES OFFICE 08918 VICKI MCGUIREPATIJOEY 9 9 PRIMARY JORDIN A T VISIT CARE 15 CENTERINC MINUTES OFFICE 72549 ALYSE JO OUTPATIEN 9 9 PRIMARY CLINT R T VISIT CARE 15 CENTERINC MINUTES HOSPITAL LUIS - 9 9 W [facility] OFFICE 84422 ALYSE LEON OUTPATIJOEY 9 9 PRIMARY JOHANNA T VISIT CARE 15 CENTERINC MINUTES OFFICE 99520 VICKI TAMPATIJOEY 9 9 PRIMARY JOHANNA T VISIT CARE 15 CENTERINC MINUTES OFFICE 33825 ALYSE QUINTEROS OUTPATIEN 9 9 PRIMARY Y, KATHLEEN T VISIT CARE V 15 CENTERINC MINUTES OFFICE 20850 ALYSE CO NEW, OUTPATIEN 9 9 PRIMARY KRISTAL J T VISIT CARE 15 CENTERINC MINUTES OFFICE 48553 ALYSE CO SHOWER, OUTPATIEN 9 9 PRIMARY AKILAH L T VISIT CARE 15 CENTERINC MINUTES OFFICE 37703 ALYSE CO CLINT, OUTPATIEN 9 9 PRIMARY REGINALDO W T VISIT CARE 15 CENTERINC MINUTES OFFICE 72926 ALYSE CO MEESE, OUTPATIEN 9 9 PRIMARY THIERNO P T VISIT CARE 15 CENTERINC MINUTES OFFICE 23739 ALYSE CO MEESE, OUTPATIEN 9 9 PRIMARY THIERNO P T VISIT CARE 15 CENTERINC MINUTES OFFICE 00024 ALYSE CO EDWARD, OUTPATIEN 9 9 PRIMARY JOHANNA T VISIT CARE 15 CENTERINC MINUTES OFFICE 03117 ALYSE CO EDWARD, OUTPATIEN 9 9 PRIMARY JOHANNA T VISIT CARE 15 CENTERINC MINUTES OFFICE 27766 ALYSE TONIE DEL OUTPATIEN 9 9 PRIMARY KENNEY T VISIT CARE DECALVO, 15 CENTERINC LENA MINUTES NGOZI V OFFICE 35307 ALYSE ALFARO, OUTPATIEN 9 9 PRIMARY RAYSHAWN E T VISIT CARE 25 CENTERINC MINUTES OFFICE 72562 LIZETTE BAUER OUTPATIEN 8 8 M L M L T VISIT 15 MINUTES OFFICE 79524 LIZETTE BAUER OUTPATIEN 8 8 M L M L T VISIT 15 MINUTES OFFICE 20325 ALYSE SPIVEY, OUTPATIEN 8 8 PRIMARY THIERNO P T VISIT CARE 15 CENTERINC MINUTES OFFICE 36509 [facility] BRENNA COSTA 8 8 POINT CORTES T VISIT FAMILY 15 CARE, MINUTES INC.
--- OUTSIDE RECORDS SUMMARY | 2017-06-21 01:29 | External Medical Summary Rpt ---
Author Author , RACQUEL Beltran RACQUEL Address Unknown Phone [email or web address] Providers Care Multiple Resaw Operator Name Role Phone [employer], Unavailable Unavailable [employer] CAROLANN JAM, CAROLANN Unavailable Unavailable J[facility] Unavailable Unavailable DEPARTMENT, [place] [facility] Unavailable Unavailable DEPARTMENT, [place] RYLAND GRAY, Unavailable Unavailable RYLAND [...] HOLDINGS, LAB [facility], Unavailable Unavailable [facility]AT[facility] & Unavailable Unavailable [facility] & Unavailable Unavailable [facility] Unavailable Unavailable [facility], [facility] OF Unavailable Unavailable [facility], [facility] STEVEN MILLIGAN Unavailable Unavailable ITZEL [facility], [facility] Unavailable Unavailable CENTER, [facility] KATHLEEN BUCHANAN V, Unavailable Unavailable DEWAYNE KATHLEEN Perez [facility] Unavailable Unavailable SERVICES, [facility] Unavailable Unavailable CENTER,, [facility], [place] [facility] Unavailable Unavailable [facility], [place] [facility] Unavailable Unavailable ASSOCIAT, [facility] Unavailable Unavailable SURGERY, [facility] SURGERY [facility] Unavailable Unavailable MEDICAL, PS[facility] Unavailable Unavailable [facility] CENTER, [facility] METHIERNO WATKINS P, Unavailable Unavailable MEESE THIERNO P CAMACHO THO, CAMACHO Unavailable Unavailable THO CAMACHO THO, CAMACHO Unavailable Unavailable THO NEUS ADITYA, NEUS ADITYA Unavailable Unavailable NEUS ADTIYA, NEUS ADITYA Unavailable Unavailable NEUS, ELVIRA E, [...] PHILLIPS BALLARD C, Unavailable Unavailable LAZARO AGARWAL [facility] Unavailable Unavailable EMERGENCY PHYS, [facility] SALEH CHR, Unavailable Unavailable SALEH [...] [facility] PHYS [id number] LAC W/O FB 09-05-2016 [facility] W[facility]O INC DAMAGE NAIL INIT [id number] LAC W/O FB 09-05-2016 [facility], W/O DAMAGE PLLC NAIL INITIAL Z720 TOBACCO USE 09-05-2016 [facility] INC V03786 CHRONIC 06-19-2016 [facility] TENSION-TYP FAMILY E HEADACHE [facility] NOT INTRACTABLE R0683 SNORING 06-19-2016 [facility] Z0000 ENCOUNTER 02-10-2016 LABORATORY GEN ADULT MARTIN OF MED EXAM [facility] W/O ABNORMAL FIND Z1151 ENCOUNTER 02-10-2016 LABORATORY FOR MARTIN OF SCREENING [facility] FOR HUMAN PAPILLOMAVI SHAYLA Z131 ENCOUNTER 02-10-2016 LABORATORY FOR [facility] OF SCREENING [facility] FOR DIABETES MELLITUS I69905 ENCOUNTER 02-10-2016 LABORATORY FOR [facility] OF SCREENING [facility] FOR LIPOID DISORDERS Z136 ENCOUNTER 02-10-2016 LABORATORY SCREENING MARTIN OF FOR [facility]SY H CARDIOVASCU LAR DISORDERS F62309 ACQUIRED 02-10-2016 LABORATORY ABSENCE OF MARTIN OF BOTH CERVIX [facility]SY [facility] AND UTERUS Q62337 ACQUIRED 02-10-2016 LABORATORY ABSENCE OF MARTIN OF OVARIES [facility] BILATERAL P11094 OTHER 02-01-2016 [facility]CLE [facility] K219 GASTRO-ESOP 01-25-2016 [facility] H REFLUX FAMILY DISEASE [facility] WITHOUT ESOPHAGITIS 24326 UNSPECIFIED 07-13-2015 [facility] GENERAL ARTHROPATHY SURGERY , LOWER LEG 60541 PAIN IN 07-13-2015 [facility] JOINT GENERAL PELVIC SURGERY REGION AND THIGH 7242 LUMBAGO 07-13-2015 [place] GENERAL SURGERY 7243 SCIATICA 07-06-2015 [facility] PRIMARY CARE CENTER 79210 SPASM OF 07-06-2015 [facility] MUSCLE PRIMARY CARE CENTER 4611 ACUTE 06-04-2015 [facility] FRONTAL PRIMARY SINUSITIS CARE CENTER 7840 HEADACHE 06-04-2015 [facility] PRIMARY CARE CENTER 7862 COUGH 06-04-2015 [facility] PRIMARY CARE CENTER 44948 OBESITY, 02-10-2015 [facility] 4019 UNSPECIFIED 02-10-2015 [facility] HYPERTENSIO N 91941 OTHER 02-10-2015 [facility] FATIGUE V8542 BODY MASS 02-10-2015 [facility] 45.0-49.9 ADULT 6259 UNSPEC 06-02-2014 [facility] SYMPTOM PRIMARY ASSOC CARE CENTER W/FEMALE GENITAL ORGANS 6272 SYMPTOMATIC 06-02-2014 [facility] PRIMARY MENOPAUSAL/ CARE CENTER FEMALE CLIMACTERIC STATES 02914 DIARRHEA 06-02-2014 [facility] PRIMARY CARE CENTER V4577 ACQUIRED 06-02-2014 [facility] ABSENCE OF PRIMARY ORGAN CARE CENTER GENITAL ORGANS V7231 ROUTINE 06-02-2014 [facility] GYNECOLOGIC PRIMARY AL CARE CENTER EXAMINATION 57060 PAIN IN 03-12-2014 [place] JOINT, GENERAL LOWER LEG SURGERY 04217 REGULAR 01-07-2014 ANYA GABRIEL ASTIGMATISM 61518 PAIN IN 10-10-2013 CAMACHO THO JOINT, ANKLE AND FOOT V7612 OTHER 08-20-2013 [facility] SCREENING REGIONAL MAMMOGRAM MEDICAL V074 HORMONE 07-23-2013 [facility] REPLACEMENT THERAPY 7089 UNSPECIFIED 07-07-2013 [facility] 6826 CELLULITIS 06-29-2013 S[facility] AND ABSCESS CHR OF LEG EXCEPT FOOT 40726 MIGRAINE 10-07-2012 NE[facility] ADITYA UNSP W/O INTRACT W/O STATUS MIGRAINOSUS 4619 ACUTE 09-11-2012 [facility] AD[facility]A SINUSITIS, UNSPECIFIED 21921 PAIN IN 09-11-2012 NE[facility] ADITYA JOINT, SITE UNSPECIFIED 7245 UNSPECIFIED 09-11-2012 NE[facility] ADITYA BACKACHE V0481 NEED 08-20-2012 [facility] PROPHYLACTI HEALTH C DEPARTMENT VACCINATION &INOCULATIO N FLU 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 UNSPECIFIED 2189 LEIOMYOMA 12-28-2011 [facility] OF UTERUS, UNSPECIFIED 6146 PELVIC 12-28-2011 [facility] PERITONEAL ADHESIONS, FEMALE 6160 CERVICITIS 12-28-2011 [facility] [place] [facility] ENDOCERVICI TIS 6202 OTHER AND 12-28-2011 [facility] UNSPECIFIED [place] [facility] OVARIAN CYST 6253 DYSMENORRHE 12-28-2011 [facility] A V7284 UNSPECIFIED 12-22-2011 [place]AL PRE-OPERATI MEDICAL VE EXAMINATION V7283 OTHER 12-14-2011 [facility] SPECIFIED PRE-OPERATI VE EXAMINATION 85534 UNSPECIFIED 11-28-2011 [facility] GANGLION 7931 NONSPEC 08-27-2011 [place] [facility] OTH EXAM ASSOCIAT BODY STRUCT LUNG FIELD 16396 URGENCY OF 08-09-2011 LABORATORY URINATION & BIODIAGNOST ICS V7381 SPECIAL 08-09-2011 PATHOLOGY & SCREENING CYTOLOGY EXAMINATION LAB HUMAN PAPILVIRUS 2409 GOITER, 08-01-2011 [place] UNSPECIFIED RADIOLOGY ASSOCIAT 7224 DEGENERATIO 08-01-2011 [place] N OF RADIOLOGY CERVICAL ASSOCIAT INTERVERTEB RAL DISC 6264 IRREGULAR 07-27-2011 [facility] MENSTRUAL PRIMARY CYCLE CARE CENTER V7791 SCREENING 07-27-2011 [facility] FOR LIPOID PRIMARY DISORDERS CARE CENTER 2564 POLYCYSTIC 07-19-2011 [facility] OVARIES PRIMARY CARE CENTER 6250 DYSPAREUNIA 07-19-2011 [facility]IMARY [facility]ARE CENTER 94930 GENERALIZED 07-18-2011 LABORATORY PAIN & BIODIAGNOST ICS V762 SCREENING 07-18-2011 [facility] FOR PRIMARY MALIGNANT CARE CENTER NEOPLASM OF THE CERVIX 08879 UNSPECIFIED 03-28-2011 [facility] PRIMARY ARTHROPATHY CARE CENTER SITE UNSPECIFIED 460 ACUTE 03-09-2011 [facility] NASOPHARYNG PRIMARY ITIS CARE CENTER 490 BRONCHITIS 02-10-2011 [facility] SPECIFIED MEDICAL ACUTE OR CHRONIC 72093 OTHER 02-10-2011 [place] DISEASES OF RADIOLOGY LUNG NOT ASSOCIAT ELSEWHERE CLASSIFIED 7841 THROAT PAIN 02-10-2011 [facility] 3540 CARPAL 12-12-2010 [facility] TUNNEL PRIMARY SYNDROME CARE CENTER 7273 OTHER 12-12-2010 [facility] BURSITIS PRIMARY DISORDERS CARE CENTER 06978 ESOPHAGEAL 10-04-2010 [facility] REFLUX PRIMARY CARE CENTER V679 UNSPECIFIED 10-04-2010 [facility] FOLLOW-UP PRIMARY EXAMINATION CARE CENTER 51694 UNSPECIFIED 09-07-2010 [facility] VAGINITIS PRIMARY AND CARE CENTER VULVOVAGINI TIS 6248 OTH SPEC 09-07-2010 [facility] NONINFLAMMA PRIMARY TORY CARE CENTER DISORDER VULVA&PERIN EUM 5206 DISTURBANCE 02-24-2010 [facility] TOOTH AGARWAL ERUPTION 5680 PERITONEAL 12-01-2009 [facility] V252 STERILIZATI 12-01-2009 [place] [facility] ANESTHESIA PSC V2509 OTH GENERAL 11-29-2009 [facility] PRIMARY CNSL&ADVICE CARE CONTRACEPT CENTERINC MANAGEMENT 66148 CHRONIC 10-20-2009 [facility] TENSION PRIMARY TYPE CARE HEADACHE CENTERINC V242 ROUTINE 10-20-2009 [facility] PRIMARY FOLLOW-UP CARE CENTERINC 61202 DIAB W/O 10-19-2009 [facility] COMP TYPE PRIMARY II/UNS NOT CARE STATED CENTERINC UNCNTRL 462 ACUTE 10-19-2009 [facility] PHARYNGITIS PRIMARY CARE CENTERINC V700 ROUTINE 10-19-2009 [facility] GENERAL PRIMARY MEDICAL CARE EXAM@HEALTH CENTERINC CARE FACL 70173 POST TERM 09-08-2009 [facility] PG DELIV PRIMARY W/WO CARE MENTION CENTERINC ANTPRTM COND V270 OUTCOME OF 09-08-2009 [facility] DELIVERY PRIMARY SINGLE CARE LIVEBORN CENTERINC 650 NORMAL 09-06-2009 [place] DELIVERY H ANESTHESIA PSC V221 SUPERVISION 08-30-2009 [facility] OF OTHER PRIMARY NORMAL CARE CENTERINC V286 SCREENING 08-10-2009 [facility] ST[facility] CENTER 7821 RASH AND 07-23-2009 [facility] OTHER PRIMARY NONSPECIFIC CARE SKIN CENTERINC ERUPTION 7028 OTHER 06-28-2009 [facility] SPECIFIED PRIMARY DERMATOSES CARE CENTERINC 23702 UNS 04-30-2009 [facility] ABNORM MGMT PRIMARY MOTH CARE ANTPRTM CENTERINC COND/COMP V237 INSUFFICIEN 04-30-2009 [facility] T PRIMARY CARE CARE CENTERINC V222 03-24-2009 [facility] STATE, PRIMARY INCIDENTAL CARE CENTERINC 42164 REFLUX 02-24-2009 [facility] ESOPHAGITIS PRIMARY CARE CENTERINC 463 ACUTE 11-02-2008 Severo BAUER TONSILLITIS L 6269 UNS D/O 09-16-2008 [facility] MENSTRUATIO PRIMARY N&OTH ABN CARE BLEED FE CENTERINC GNT TRACT 44850 UNSPECIFIED 01-28-2008 [facility] Allergies, Adverse Reactions, Alerts Clinical Alert [...] 50 1- 7- 00 06 S ve MD 10 20 20 51 PH N 21 17 17 19 AR HC 0 38 MA L CY 50 0 MG TA BL ET ME 23 04 05 30 30 00 DE Ac TF 15 -2 -2 .0 00 AN ti OR 50 6- 6- 00 06 S ve MD 10 20 20 51 PH N 21 [...] OR 50 1- 1- 06 S ve MD 10 20 20 51 PH N 21 [...] PH ZA 71 17 17 99 AR NE 0 37 MA IN CY E 10 MG TA BL ET ME 23 02 60 30 00 DE Ac TF 15 -1 -1 .0 00 AN ti OR 50 0- 0- 00 06 S ve MD 10 20 20 50 PH N 21 [...] PH ZA 71 16 17 99 AR NE 0 37 MA IN CY E 10 [...] 50 2- 9- 00 06 S ve MD 10 20 20 49 PH N 21 [...] 0 28 14 DE 64 SH Ac NE 71 -1 -1 .0 AN 15 OW [...] ER GY ON N E FA 15 MD 0 LY MG /M HE L AL TH BU 00 08 08 0 20 3 MA 60 YO Ac TA 59 -2 -2 .0 YS 49 UN ti LB 13 4- 4- 00 09 G ve -A 36 20 20 LL 2 KA CE 90 11 11 E TH TA 1 OB RY MD N N- GY CA N FF FA MD 50 LY -3 25 HE -4 AL [...] 2 60 30 DE 64 KE Ac NE 09 -0 -0 .0 AN 10 EF [...] 09 09 AR RY TA 2 MA MD CY HATCH N- RO CA LD FF [...] MA RI A IS AB EL V NE 37 12 12 00 28 28 RE [...] Procedure DOS Code Location Performer Comment RADEX 59478 RADIOLOGY CURE SPINE 7 INC CERVICAL 4 OR 5 VIEWS SIMPLE 57200 MARLYN QUINONES REPAIR 6 PHYSICIAN LEANNE SCALP/NEC S, PLLC K/AX/HENRIK T/TRUNK 2.5CM/< IM ADM 78884 [facility] PRQ ID 6 [facility] SUBQ/IM INC INC NJXS 1 VACCINE COMPREHEN 99975 LAB MARTIN LAB MARTIN SIVE 6 SUSSY SUSSY METABOLIC HOLDINGS HOLDINGS PANEL LIPOPROTE 38026 LAB MARTIN LAB MARTIN IN BLOOD 6 SUSSY SUSSY EDEN [facility] HOLDINGS NUMBERS & [place] [address] LAB MARTIN LAB MARTIN THYROID 6 SUSSY SUSSY STIMULATI HOLDINGS HOLDINGS NG HORMONE TSH CYTP C/V 15530 LABORATOR LABORATOR AUTO THIN 6 Y MARTIN OF Y MARTIN OF LYR SUSSY SUSSY PREPJ SCR H H MNL RESCR PHYS IADNA 84985 LABORATOR LABORATOR HUMAN 6 Y MARTIN OF Y MARTIN OF [facility] V[facility] H H HIGH-RISK TYPES LIPID 72953 LAB MARTIN LAB MARTIN PANEL 6 SUSSY SUSSY HOLDINGS HOLDINGS RADEX 56301 [facility] ZAVALA SPINE 6 FAMILY CERVICAL HEALTH 2 OR 3 CTR VIEWS RADEX 38907 RADIOLOGY STEVEN SPINE 6 INC ITZEL CERVICAL 4 OR 5 VIEWS INJECTION J1885 [facility] GARRETT LUCAS 6 FAMILY KETOROLAC HEALTH CTR TROMETHAM INE PER 15 MG THERAPEUT 25549 [facility] ZAVAL[facility] IC 6 FAMILY PROPHYLAC HEALTH TIC/DX CTR INJECTION SUBQ/IM RADEX 55387 [facility] ANTHONYS SPINE 5 W GENERAL LUMBOSACR SURGERY AL 2/3 VIEWS RADEX HIP 49152 [facility] DIAZ OSMEL 5 W GENERAL UNILATERA SURGERY L COMPLETE MINIMUM 2 VIEWS INJ J0702 AL[facility] ZAVALA BETAMETHA 5 PRIMARY SONE CARE ACETATE & CENTER PHOSPHATE 3 MG THERAPEUT 25637 [facility] ZAVALA IC 5 PRIMARY PROPHYLAC CARE TIC/DX CENTER INJECTION SUBQ/IM 25 79388 [facility] 5 DIAGNOSTI DIAGNOSTI INCLUDES CS CS FRACTIONS IF PERFORMED GENERAL 66556 [facility] 5 DIAGNOSTI DIAGNOSTI PANEL CS CS COLLECTIO 20880 [facility] N VENOUS 5 DIAGNOSTI DIAGNOSTI BLOOD CS CS VENIPUNCT URE INJECTION J1885 [facility] GORE DEN 4 PRIMARY KETOROLAC CARE CENTER TROMETHAM INE PER 15 MG THERAPEUT 03877 [facility] GORE DEN IC 4 PRIMARY PROPHYLAC CARE TIC/DX CENTER INJECTION SUBQ/IM URNLS DIP 29361 LAB MARTIN LAB MARTIN 4 SUSSY SUSSY STICK/TAB HOLDINGS HOLDINGS LET RGNT AUTO W/O MICROSCOP Y SEDIMENTA 77495 LAB MARTIN LAB MARTIN TION RATE 4 SUSSY SUSSY RBC HOLDINGS HOLDINGS AUTOMATED CULTURE 41041 LAB MARTIN LAB MARTIN BACTERIAL 4 SUSSY SUSSY HOLDINGS HOLDINGS QUANTTATI VE COLONY COUNT URINE BLOOD 19017 LAB MARTIN LAB MARTIN COUNT 4 SUSSY SUSSY COMPLETE HOLDINGS HOLDINGS AUTO&AUTO DIFRNTL WBC RADIOLOGI 56900 [facility] BOLIVAR C 4 W GENERAL EXAMINATI SURGERY ON KNEE 1/2 VIEWS ARTHROCEN 45885 [facility] BOLIVAR TESIS 4 W GENERAL ASPIR&/IN SURGERY J MAJOR JT/BURSA W/O US INJECTION J3301 LUIS BOLIVAR 4 W GENERAL TRIAMCINO SURGERY LONE ACETONIDE NOS 10 MG OPHTH 74999 [facility] 4 XM&EVAL COMPRHNSV ESTAB PT 1/> RADEX 04915 JANICE CAMACHO FOOT 3 THO THO COMPLETE MINIMUM 3 VIEWS SCREENING G0202 DONNA THOMPSON 3 EIDER AFUA EIDER AFUA MAMMOGRAP HY COLT INCL CAD WHEN PERFORMD COMPUTER- 68503 DONNA THOMPSON AIDED 3 EIDER AFUA EIDER AFUA DETECTION SCREENING MAMMOGRAP HY THERAPEUT 31409 NEUS ADITYA NEUS ADITYA IC 2 PROPHYLAC TIC/DX INJECTION SUBQ/IM INJECTION J1885 NEUS ADITYA NEUS ADITYA 2 KETOROLAC TROMETHAM INE PER 15 MG INJECTION J1885 NEUS ADITYA NEUS ADITYA 2 KETOROLAC TROMETHAM INE PER 15 MG THERAPEUT 25796 NEUS ADITYA NEUS ADITYA IC 2 PROPHYLAC TIC/DX INJECTION SUBQ/IM THERAPEUT 02358 NEUS ADITYA NEUS ADITYA IC 2 PROPHYLAC TIC/DX INJECTION SUBQ/IM INJECTION J1885 NEUS ADITYA NEUS ADITYA 2 KETOROLAC TROMETHAM INE PER 15 MG INJECTION J1040 NEUS ADITYA NEUS ADITYA 2 METHYLPRE DNISOLONE ACETATE 80 MG IIV3 53469 BRACKEN BRACKEN VACCINE 2 CO [employer] [facility] SPLIT VIRUS 0.5 DEPARTMEN DEPARTMEN ML T T DOSAGE IM USE RADEX 94984 [facility] SPINE 2 LUMBOSACR DIAGNOSTI DIAGNOSTI AL C [place], CENTER, MINIMUM 4 VIEWS RADIOLOGI 59913 [facility] [address] [facility] EXAMINATI RADIOLOGY ON ASSOCIAT SACROILIA C JNTS <[address] V[address] [facility] SACRUM & 2 COCCYX DIAGNOSTI DIAGNOSTI MINIMUM 2 C [place], CENTER, VIEWS INJECTION J1885 NEUS ADITYA NEUS ADITYA 2 KETOROLAC TROMETHAM INE PER 15 MG THERAPEUT 74451 NEUS ADITYA NEUS ADITYA IC 2 PROPHYLAC TIC/DX INJECTION SUBQ/IM ANESTHESI 08753 [facility] [place] A 2 LTH ANT INTRAPERI ANESTHESI TONEAL A PSC LOWER ABD W/LAPS NOS LEVEL V 77727 [facility] CAROLANN SURG 2 [place] INC JAM PATHOLOGY GROSS&LEANNE ROSCOPIC EXAM LAPS 36787 SHOWER SHOWER TOTAL 2 GATICA GATICA HYSTERECT 250 GM/< W/RMVL TUBE/OVAR Y URNLS DIP 16728 [facility] MEADOWVIE 2 W W STICK/TAB REGIONAL REGIONAL LET MEDICAL MEDICAL REAGENT AUTO MICROSCOP Y BLOOD 69520 MEAD[facility]IE MEADOWVIE COUNT 2 W W COMPLETE REGIONAL REGIONAL AUTO&AUTO MEDICAL MEDICAL DIFRNTL WBC COLLECTIO 91925 [facility] SMITH N VENOUS 2 W W BLOOD [facility] URE COMPREHEN 19075 LUIS SMITH SIVE 2 W W METABOLIC REGIONAL [facility] MEDICAL MEDICAL RADIOLOGI 83373 NIANTICPATRICE Martinez EXAM 2 PEDRO KNEE RADIOLOGY COMPLETE ASSOCIAT 4/MORE VIEWS RADIOLOGI 74012 [place] HAGENSVICKIN C 1 EIDER AFUA EXAMINATI RADIOLOGY ON CHEST ASSOCIAT [place] FRONTAL URNLS DIP 00619 LABORATOR LABORATOR 1 Y & Y & STICK/TAB BIODIAGNO BIODIAGNO LET STICS STICS REAGENT AUTO MICROSCOP Y IADNA 52516 PATHOLOGY PATHOLOGY [place] 1 & & VIRUS CYTOLOGY CYTOLOGY HUMAN LAB LAB AMPLIFIED PROBE TQ CYTP C/V 58767 LABORATOR LABORATOR AUTO THIN 1 Y & Y & LYR BIODIAGNO BIODIAGNO PREPJ SCR STICS STICS MNL RESCR PHYS CULTURE 69520 LABORATOR LABORATOR BACTERIAL 1 Y & Y & BIODIAGNO BIODIAGNO QUANTTATI [place] [address] [facility] CERVICAL 1 MONISHA SPINE W/O RADIOLOGY CONTRAST ASSOCIAT MATERIAL MRI BRAIN 60612 [facility] BRAIN 1 MONISHA STEM W/O RADIOLOGY CONTRAST ASSOCIAT MATERIAL GLUCOSE 50390 LABORATOR LABORATOR POST 1 Y & Y & GLUCOSE BIODIAGNO [place] [address] LABORATOR LABORATOR INSULIN 1 Y & Y & TOTAL BIODIAGNO BIODIAGNO STICS STICS COLLECTIO 20787 [facility] YOUNG COLLEEN N VENOUS 1 PRIMARY BLOOD [place] [address] LABORATOR LABORATOR TESTOSTER 1 Y & Y & ONE TOTAL BIODIAGNO [place] [address] LABORATOR LABORATOR TESTOSTER 1 Y & Y & ONE FREE BIODIAGNO BIODIAGNO STICS STICS LIPID 33765 LABORATOR LABORATOR PANEL 1 Y & Y & BIODIAGNO BIODIAGNO STICS STICS GLUCOSE 01015 LABORATOR LABORATOR QUANTITAT 1 Y & Y & CHANDRAKANT BLOOD BIODIAGNO BIODIAGNO XCPT STICS STICS REAGENT STRIP HEMOGLOBI 12037 LABORATOR LABORATOR N 1 Y & Y & GLYCOSYLA BIODIAGNO BIODIAGNO [place] [address] [facility] EDWARD MACIAS TRANSVAGI 1 PRIMARY NAL CARE CENTER THERAPEUT 77101 [facility] EDWARD COLLEEN IC 1 PRIMARY PROPHYLAC CARE TIC/DX CENTER INJECTION SUBQ/IM INJECTION J1885 [facility] SANDRO 1 PRIMARY DON KETOROLAC CARE CENTER TROMETHAM INE PER 15 MG URINE 03151 AL[facility] JO 1 PRIMARY DON TEST CARE VISUAL CENTER COLOR CMPRSN METHS THERAPEUT 91580 AL[facility] JO IC 1 PRIMARY DON PROPHYLAC CARE TIC/DX CENTER INJECTION SUBQ/IM COLLECTIO 59664 [facility] N VENOUS 1 PRIMARY PRIMARY BLOOD CARE CARE VENIPUNCT CENTER CENTER URE BASIC 24707 LABORATOR LABORATOR METABOLIC 1 Y & Y & PANEL BIODIAGNO BIODIAGNO CALCIUM STICS STICS TOTAL URNLS DIP 22420 LABORATOR LABORATOR 1 Y & Y & STICK/TAB BIODIAGNO BIODIAGNO LET STICS STICS REAGENT AUTO MICROSCOP Y CULTURE 68692 LABORATOR LABORATOR BACTERIAL 1 Y & Y & BIODIAGNO BIODIAGNO QUANTTATI STICS STICS VE COLONY COUNT URINE IADNA 74971 LABORATOR LABORATOR CHLAMYDIA 1 Y & Y & BIODIAGNO BIODIAGNO TRACHOMAT STICS STICS IS AMPLIFIED PROBE TQ BLOOD 87497 LABORATOR LABORATOR COUNT 1 Y & Y & COMPLETE BIODIAGNO BIODIAGNO AUTO&AUTO STICS STICS DIFRNTL WBC IADNA 74257 LABORATOR LABORATOR NEISSERIA 1 Y & Y & BIODIAGNO BIODIAGNO GONORRHOE STICS ST[place] [address] LABORATOR LABORATOR THYROID 1 Y & Y & STIMULATI BIODIAGNO BIODIAGNO NG STICS STICS HORMONE TSH C-REACTIV 78776 LABORATOR LABORATOR E PROTEIN 1 Y & Y & BIODIAGNO BIODIAGNO STICS STICS RHEUMATOI 60284 LABORATOR LABORATOR D FACTOR 1 Y & Y & QUANTITAT BIODIAGNO BIODIAGNO CHANDRAKNAT STICS STICS COLLECTIO 77267 AL[facility] TIAN N VENOUS 1 PRIMARY BLOOD CARE VENIPUNCT CENTER URE IAADIADOO 11118 AL[facility] BENNETT ASMITA 1 PRIMARY STREPTOCO CARE CCUS CENTER GROUP A IAADIADOO 46783 MEADOWVIE MEADOWVIE 1 W W STREPTOCO REGIONAL REGIONAL [facility] A RADIOLOGI 41772 [facility] EXAM 1 EIDER AFUA CHEST 2 RADIOLOGY VIEWS ASSOCIAT FRONTAL&L ATERAL CUL 57035 MEADOWVIE MEADOWVIE PRSMPTV 1 W W PTHGNC [facility] ORGANISM MEDICAL MEDICAL SCRN W/COLONY ESTIMJ SMR PRIM 12173 AL[facility] JO SRC WET 0 PRIMARY DON [facility] NFCT AGT CENTER CUL BACT 61361 LABORATOR LABORATOR XCPT 0 Y & Y & URINE BIODIAGNO BIODIAGNO BLOOD/STO STICS STICS OL AEROBIC ISOL CULTURE 61892 LABORATOR LABORATOR BACTERIAL 0 Y & Y & ANY BIODIAGNO BIODIAGNO SOURCE STICS STICS ANAEROBIC ISO&ID SMR PRIM 70513 LABORATOR LABORATOR SRC 0 Y & Y & GRAM/GIEM BIODIAGNO BIODIAGNO SA STAIN STICS STICS BCT FUNGI/RONALD L DEEP D9220 LAZARO AGARWAL, SEDATION/ 0 Bertrand Martinez GENERAL ANESTHESI A-1ST 30 MINUTES RADIOLOGI 07569 Michelle DELACRUZ EXAM 0 Bertrand Martinez TEETH COMPLETE FULL MOUTH ANES IPER 81544 AJAYA TAQUERIA RICOR ABD 0 LTH ALLI E W/LAPS ANESTHESI TUBAL A PSC LIGATION/ TRANSECT OCCLUSION 54341 LUIS OSBORNEWVIE FLP TUBE 0 W W DEV REGIONAL REGIONAL VAG/[facility] PUBIC C[facility] CENTER APPR LAPAROSCO 85962 ALSYE SCHILLING MEESE, PY 0 PRIMARY THIERNO P FULGURATI CARE ON CENTERINC OVIDUCTS URINE 66299 MEADOWVIE MEADOWVIE 0 W W TEST [facility] VISUAL [facility] CENTER CMPRSN METHS COLLECTIO 86465 MEADOWVIE MEADOWVIE N VENOUS 0 W W BLOOD [facility] VENIPUNCT [facility] CENTER URNLS DIP 37602 MEADOWVIE MEADOWVIE 0 W W STICK/TAB [facility] LET [facility] AUTO MICROSCOP Y POTASSIUM 91803 MEADOWVIE MEADOWVIE SERUM 0 W W PLASMA/WH [facility] OLE BLOOD [facility] CULTURE 50467 MEADOWVIE MEADOWVIE BACTERIAL 0 W W [facility] QUANTTATI [facility] VE [facility]ONY [facility] CENTER COUNT URINE BLOOD 89778 MEADOWVIE MEADOWVIE COUNT 0 W W COMPLETE [facility] AUTO&AUTO [facility] DIFRNTL C[facility] CENTER WBC BLOOD 43173 MEADOWVIE MEADOWVIE COUNT 9 W W COMPLETE [facility] AUTO&AUTO [facility] [place] [address] MEADOWVIE MEADOWVIE THYROID 9 W W STIMULATI [facility] NG [facility] TSH HEMOGLOBI 12561 MEADOWVIE MEADOWVIE N 9 W W GLYCOSYLA [facility] CARI [address] CENTER LIPID 41771 MEADOWVIE MEADOWVIE PANEL 9 W W [facility] CENTER COLLECTIO 80174 MEADOWVIE MEADOWVIE N VENOUS 9 W W BLOOD [facility] VENIPUNCT [facility] C[facility] BASIC 35908 MEADOWVIE MEADOWVIE METABOLIC 9 W W PANEL [facility] CENTER INJECTION [id number] ALYSE SEARS, 9 PRIMARY ELVIRA E KETOROLAC CARE CENTERINC TROMETHAM INE PER 15 MG THERAPEUT 15449 ALYSE SEARS, IC 9 PRIMARY ELVIRA E PROPHYLAC CARE TIC/DX CENTERINC INJECTION SUBQ/IM OPHTH 90156 [facility] 9 VISION KYLE A XM&EVAL COMPRHNSV ESTAB PT 1/> HOSPITAL 74808 ALYSE SPIVEY, DISCHARGE 9 PRIMARY THIERNO P DAY CARE MANAGEMEN CENTERINC T 30 MIN/< SBSQ 70756 ALYSE SCHILLING [facility] 9 PRIMARY THIERNO P CARE/DAY CARE 15 CENTERINC MINUTES NEURAXIAL 80804 [facility] 9 LTH , CORA ANALG/ANE ANESTHESI S PLND A PSC VAGINAL DELIVERY VAGINAL 59630 ALYSE SPIVEY, DELIVERY 9 PRIMARY THIERNO P ONLY CARE CENTERINC MEDICAL 734 LUIS SMITH INDUCTION 9 W W OF LABOR [facility] CENTER OTHER 7359 LUIS SMITH MANUALLY 9 W W ASSISTED [facility] CENTER URNLS DIP 08697 ALYSE SPIVEY, 9 PRIMARY THIERNO P STICK/TAB CARE LET RGNT CENTERINC NON-AUTO W/O MICRSCP URNLS DIP 08440 ALYSE PARIKH, 9 PRIMARY JORDIN A STICK/TAB CARE LET RGNT CENTERINC NON-AUTO W/O MICRSCP 80090 ALYSE PARIKH, NONSTRESS 9 PRIMARY JORDIN A TEST CARE [facility]ENTER[facility] URNLS DIP 29836 ALYSE JO, 9 PRIMARY CLINT R STICK/TAB CARE LET RGNT CENTERINC NON-AUTO W/O MICRSCP URNLS DIP 59934 ALYSE LEON, 9 PRIMARY JOHANNA STICK/TAB CARE LET RGNT CENTERINC NON-AUTO W/O MICRSCP CUL 57194 LUIS SMITH PRSMPTV 9 W [facility] W/COLONY ESTIMJ URNLS DIP 39292 ALYSE LEON, 9 PRIMARY JOHANNA STICK/TAB CARE LET RGNT CENTERINC NON-AUTO W/O MICRSCP URNLS DIP 69774 ALYSE NEW, 9 PRIMARY KRISTAL J STICK/TAB CARE LET RGNT CENTERINC NON-AUTO W/O MICRSCP COLLECTIO 42909 ALYSE NEW, N 9 PRIMARY KRISTAL J CAPILLARY CARE BLOOD CENTERINC SPECIMEN URNLS DIP 21460 ALYSE HOOVER, 9 PRIMARY AKILAH L STICK/TAB CARE LET RGNT CENTERINC NON-AUTO W/O MICRSCP GLUCOSE 30080 [facility] POST 9 [place] [facility] [place] INC GLUCOSE DOSE URNLS DIP 99986 ALYSE JARAMILLO, 9 PRIMARY REGINALDO W STICK/TAB CARE LET RGNT CENTERINC NON-AUTO W/O MICRSCP COLLECTIO 60220 ALYSE JARAMILLO, N VENOUS 9 PRIMARY REGINALDO W BLOOD CARE VENIPUNCT CENTERINC URE URNLS DIP 77516 ALYSE SCHILLING MEESE, 9 PRIMARY THIERNO P STICK/TAB CARE LET RGNT CENTERINC NON-AUTO W/[place] PREG 14298 ALYSE LINDQUISTESE, UTERUS 9 PRIMARY THIERNO P W/DETAIL CARE CENTERINC SERGIO 1ST GESTATION CYTP 52572 [facility] CERV/VAG 9 [facility] AUTO THIN LAYER PREP MNL SCREEN IADNA 11115 [facility] [place] 9 [facility] TRACHOMAT IS AMPLIFIED PROBE TQ IADNA 23869 [facility] [place] 9 [facility] GONORRHOE AE AMPLIFIED PROBE TQ URNLS DIP 25154 ALYSE LEON, 9 PRIMARY JOHANNA STICK/TAB CARE LET RGNT CENTERINC NON-AUTO W/O MICRSCP URNLS DIP 14491 ALYSE LEON, 9 PRIMARY JOHANNA STICK/TAB CARE LET RGNT CENTERINC NON-AUTO W/O MICRSCP COLLECTIO 22977 ALYSE LEON, N VENOUS 9 PRIMARY [place] [address] ALYSE LEON, 9 PRIMARY JOH[place]NA UTERUS 14 CARE WK CENTERINC TRANSABDL GESTAT URINE 01166 ALYSE SCHILLING DEL 9 PRIMARY KENNEY TEST CARE DECALVO, VISUAL CENTERINC LENA COLOR NGOZI V CMPRSN METHS DESTRUCTI 10210 [facility] IGOR, ON 8 POINT CORTES PREMALIGN FAMILY ANT CARE, LESION INC. 1ST Encounters Encounter Start End Date Code Location Performer Type Date EMERGENCY 29263 AHMET JO 7 7 URIEL GUERRERO EMERGENCY T VISIT PHYS HIGH/URGE NT SEVERITY EMERGENCY 15360 MARLYN QUINONES 6 6 PHYSICIAN LEANNE DEPARTMEN S, PLLC T VISIT MODERATE SEVERITY [facility]OSP[facility] - 6 6 [facility] OUTPATIEN INC T OFFICE 72249 ALYSE GARRETT LUCAS OUTPATIEN 6 6 FAMILY T VISIT HEALTH 15 CTR MINUTES OFFICE 82530 ALYSE GARRETT LUCAS OUTPATIEN 6 6 FAMILY T VISIT HEALTH 15 CTR MINUTES OFFICE 49169 ALYSE ZAVALA OUTPATIEN 6 6 FAMILY T VISIT HEALTH 15 CTR MINUTES OFFICE 54041 ALYSE ZAVALA OUTPATIEN 6 6 FAMILY T VISIT HEALTH 25 CTR MINUTES OFFICE 34598 LUIS BOLIVAR OUTPATIEN 5 5 W GENERAL T VISIT SURGERY 15 MINUTES OFFICE 62108 ALYSE GARRETT LUCAS OUTPATIEN 5 5 PRIMARY T VISIT CARE 25 CENTER MINUTES OFFICE 59632 ALYSE ZAVALA OUTPATIEN 5 5 PRIMARY T VISIT CARE 15 CENTER MINUTES OFFICE 12631 ALYSE DRAPER DEN OUTPATIEN 5 5 PRIMARY T VISIT CARE 15 CENTER MINUTES OFFICE 07505 ALYSE DRAPER DEN OUTPATIEN 4 4 PRIMARY T VISIT CARE 15 CENTER MINUTES OFFICE 45154 ALYSE SCHILLING SHOWER OUTPATIEN 4 4 PRIMARY [place] T VISIT CARE 25 CENTER MINUTES PERIODIC 67783 ALYSE SCHILLING SHOWER PREVENTIV 4 4 PRIMARY [place] E MED EST CARE PATIENT CENTER 18-39 YRS OFFICE 65698 LUIS BOLIVAR OUTPATIEN 4 4 W GENERAL T NEW 30 SURGERY MINUTES HOSPITAL LUIS - 3 3 W OUTPATIEN REGIONAL T MEDICAL OFFICE 60794 BONNY DEN OUTPATIEN 3 3 T VISIT 15 MINUTES EMERGENCY 71886 NELIDA JO 3 3 EMERGENCY MAINE DEPARTMEN SERVICES T VISIT HIGH/URGE NT SEVERITY EMERGENCY 48558 THERESE SALEH 3 3 CHR CHR DEPARTMEN T VISIT HIGH/URGE NT SEVERITY OFFICE 31753 NEUS ADITYA OUTPATIEN 2 2 T VISIT 25 MINUTES OFFICE 41323 NEUS ADITYA OUTPATIEN 2 2 T VISIT 25 MINUTES HOSPITAL [place] - 2 2 W OUTPATIEN REGIONAL T MEDICAL OFFICE 27014 SHOWER SHOWER OUTPATIEN 2 2 GATICA GATICA T VISIT 40 MINUTES OFFICE 79842 BLU BLU OUTPATIEN 2 2 NAN NAN T VISIT 25 MINUTES OFFICE 20139 ALYSE LEON COLLEEN OUTPATIEN 1 1 PRIMARY T VISIT CARE 15 CENTER MINUTES OFFICE 13995 ALYSE LEON COLLEEN OUTPATIEN 1 1 PRIMARY T VISIT CARE 15 CENTER MINUTES PERIODIC 06503 ALYSE JO PREVENTIV 1 1 PRIMARY DON E MED EST CARE PATIENT CENTER 18-39 YRS OFFICE 89697 ALYSE TIAN OUTPATIEN 1 1 PRIMARY T VISIT CARE 15 CENTER MINUTES OFFICE 77710 ALYSE TIAN OUTPATIEN 1 1 PRIMARY T VISIT CARE 15 CENTER MINUTES EMERGENCY 84342 NELIDA SALEH 1 1 EMERGENCY CHR DEPARTMEN SERVICES T VISIT HIGH/URGE NT SEVERITY HOSPITAL [facility] - 1 1 W OUTPATIEN REGIONAL T MEDICAL EMERGENCY 75056 LUIS 1 1 W DEPARTMEN REGIONAL T VISIT MEDICAL MODERATE SEVERITY OFFICE 29171 ALYSE DAWSONIN OUTPATIEN 1 1 PRIMARY WAD T VISIT CARE 15 CENTER MINUTES OFFICE 28178 ALYSE JO OUTPATIEN 0 0 PRIMARY DON T VISIT CARE 15 CENTER MINUTES OFFICE 64997 ALYSE JO OUTPATIEN 0 0 PRIMARY DON T VISIT CARE 15 CENTER MINUTES OFFICE 65496 LAZARO AGARWAL, OUTPATIEN 0 0 Bertrand Martinez T NEW 20 MINUTES HOSPITAL ME[facility]OW[facility]IE - 0 0 W [facility] OFFICE 10400 ALYSE SPIVEY, OUTPATIEN 0 0 PRIMARY THIERNO P T VISIT CARE 25 CENTERINC MINUTES HOSPITAL MEADOW[facility]IE - 0 0 W [facility] HOSPITAL MEAWVIE - 9 9 W [facility] OFFICE 21312 ALYSE SPIVEY OUTPATIEN 9 9 PRIMARY THIERNO P T VISIT CARE 25 CENTERINC MINUTES OFFICE 93861 VICKI CATRERPATIEN 9 9 PRIMARY ELVIRA E T VISIT CARE 25 CENTERINC MINUTES OFFICE 62821 ALYSE QUINTEROS OUTPATIEN 9 9 PRIMARY Y, KATHLEEN T VISIT CARE V 15 CENTERINC MINUTES HOSPITAL MEAWVIE - 9 9 W [facility] OFFICE 07203 ALYSE SPIVEY OUTPATIEN 9 9 PRIMARY THIERNO P T VISIT CARE 15 CENTERINC MINUTES OFFICE 13122 VICKI MCGUIREPATIJOEY 9 9 PRIMARY JORDIN A T VISIT CARE 15 CENTERINC MINUTES OFFICE 80570 ALYSE OJ OUTPATIEN 9 9 PRIMARY CLINT R T VISIT CARE 15 CENTERINC MINUTES HOSPITAL LUIS - 9 9 W [facility] OFFICE 19179 ALYSE LEON OUTPATIJOEY 9 9 PRIMARY JOHANNA T VISIT CARE 15 CENTERINC MINUTES OFFICE 39492 VICKI TAMPATIJOEY 9 9 PRIMARY JOHANNA T VISIT CARE 15 CENTERINC MINUTES OFFICE 28970 ALYSE QUINTEROS OUTPATIEN 9 9 PRIMARY Y, KATHLEEN T VISIT CARE V 15 CENTERINC MINUTES OFFICE 59135 ALYSE CO NEW, OUTPATIEN 9 9 PRIMARY KRISTAL J T VISIT CARE 15 CENTERINC MINUTES OFFICE 79366 ALYSE CO SHOWER, OUTPATIEN 9 9 PRIMARY AKILAH L T VISIT CARE 15 CENTERINC MINUTES OFFICE 41917 ALYSE CO CLINT, OUTPATIEN 9 9 PRIMARY REGINALDO W T VISIT CARE 15 CENTERINC MINUTES OFFICE 31607 ALYSE CO MEESE, OUTPATIEN 9 9 PRIMARY THIERNO P T VISIT CARE 15 CENTERINC MINUTES OFFICE 28330 ALYSE CO MEESE, OUTPATIEN 9 9 PRIMARY THIERNO P T VISIT CARE 15 CENTERINC MINUTES OFFICE 68319 ALYSE CO EDWARD, OUTPATIEN 9 9 PRIMARY JOHANNA T VISIT CARE 15 CENTERINC MINUTES OFFICE 21593 ALYSE CO EDWARD, OUTPATIEN 9 9 PRIMARY JOHANNA T VISIT CARE 15 CENTERINC MINUTES OFFICE 58771 ALYSE TONIE DEL OUTPATIEN 9 9 PRIMARY KENNEY T VISIT CARE DECALVO, 15 CENTERINC LENA MINUTES NGOZI V OFFICE 89120 ALYSE ALFARO, OUTPATIEN 9 9 PRIMARY RAYSHAWN E T VISIT CARE 25 CENTERINC MINUTES OFFICE 42135 LIZETTE BAUER OUTPATIEN 8 8 M L M L T VISIT 15 MINUTES OFFICE 75523 LIZETTE BAUER OUTPATIEN 8 8 M L M L T VISIT 15 MINUTES OFFICE 76024 ALYSE SPIVEY, OUTPATIEN 8 8 PRIMARY THIERNO P T VISIT CARE 15 CENTERINC MINUTES OFFICE 25920 [facility] BRENNA COSTA 8 8 POINT CORTES T VISIT FAMILY 15 CARE, MINUTES INC.
--- OUTSIDE RECORDS SUMMARY | 2017-06-21 01:35 | External Medical Summary Rpt ---
Author Author , RACQUEL CLEMENT Address Unknown Phone [email or web address] Care Team Providers Care Associate Professor Of Art Name Role Phone [facility] [place] [employer], Unavailable Unavailable [employer] [employer] CAROLANN JAM, CAROLANN Unavailable Unavailable [facility] Unavailable Unavailable DE[facility]MENT, [facility] Unavailable Unavailable DE[facility]MENT, [facility] RYLAND GRAY, Unavailable Unavailable RYLAND GRAY M L, Unavailable Unavailable Severo BAUER, GALDINO Unavailable Unavailable PEDRO CURE, CURE Unavailable Unavailable [facility], Unavailable Unavailable [facility] LASHON DECALVO, Unavailable Unavailable EARLINE V, LASHON DECALVO, EARLINE V REGINALDO JARAMILLO DOTY, Unavailable Unavailable REGINALDO RIVERA RICO Unavailable Unavailable ALLI TRUJILLO, Unavailable Unavailable ALLI RICO ANNE E, Unavailable Unavailable RAYSHAWN ALFARO GORE DEN, GORE DEN Unavailable Unavailable GORE DEN, GORE DEN Unavailable Unavailable GARRETT LUCAS, GARRETT LUCAS Unavailable Unavailable BLU NAN, BLU Unavailable Unavailable NAN BLU NAN, BLU Unavailable Unavailable NAN PUJA CAAL, Unavailable Unavailable PUJA CAAL [facility] Unavailable Unavailable INC, [facility] GARCIA MONISHA, GARCIA Unavailable Unavailable MONISHA JOYNER NERY, JOYNER NERY Unavailable Unavailable JOYNER NERY, JOYNER NERY Unavailable Unavailable KYLE JOYNER, Unavailable Unavailable KYLE JOYNER KEEF KIM Unavailable Unavailable [facility] Unavailable Unavailable [facility]INGS, [facility] Unavailable Unavailable HOLDINGS, [facility] [employer], Unavailable Unavailable [facility] [employer] LAB[facility] & Unavailable [facility]available [facility] & Unavailable Unavailable [facility] Unavailable Unavailable [facility], [facility] Unavailable Unavailable [facility], [facility] STEVEN MILLIGAN Unavailable Unavailable [facility] Unavailable [facility]available [facility], [facility] Unavailable [facility]ENTER, [facility] KATHLEEN BUCHAANN V, Unavailable Unavailable KATHLEEN BUCHANAN V [facility] Unavailable Unavailable SERVICES, [facility] Unavailable Unavailable CENTER,, [facility]EN[facility] OPERATOR HELPER Unavailable Unavailable [facility] OPER[facility] HELPER [facility] Unavailable Unavailable ASSOCIAT, [facility] Unavailable [facility]available SURG[facility], [facility] Unavailable Unavailable MEDICAL, [facility] Unavailable Unavailable [facility]ENTER, [facility] THIERNO SPIVEY, Unavailable Unavailable THIERNO SPIVEY P CAMACHO THO, CAMACHO Unavailable Unavailable THO CAMACHO THO, CAMACHO Unavailable Unavailable THO NEUS ADITYA, NEUS ADITYA Unavailable Unavailable NEUS ADITYA, NEUS ADITYA Unavailable Unavailable NEUS ELVIRA E, NEUS, Unavailable Unavailable EMILY CALERO OSMEL Unavailable Unavailable [facility], Unavailable Unavailable [facility], [facility] Unavailable Unavailable LAB, [facility] Unavailable Unavailable LAB, [facility] KRISTAL NEW, Unavailable Unavailable [facility], Unavailable Unavailable [facility], Unavailable Unavailable [facility], Unavailable [facility]available [facility] KING WAD, KING Unavailable Unavailable WAD JL, JORDIN A, Unavailable Unavailable JL JORDIN A [facility], Unavailable Unavailable [facility] SHOWER GATICA, SHOWER Unavailable Unavailable GATICA SHOWER GATICA, SHOWER Unavailable Unavailable GATICA SHOWER, AKILAH L, Unavailable Unavailable SHOWER, LAZARO NIETO, Unavailable Unavailable LAZARO [facility] SALEH CHR, Unavailable Unavailable SALEH CHR SALEH CHR, Unavailable Unavailable SALEH CHR IGOR, CORTES, Unavailable Unavailable IGOR, CORTES SANDRO JO Unavailable Unavailable SANDRO SHELL Unavailable Unavailable PRIYANKA [facility]OVE, SANDRO Unavailable Unavailable CLINT GUDINO, Unavailable Unavailable CLINT JO COLLEEN, EDWARD COLLEEN Unavailable Unavailable JOHANNA LEON, Unavailable Unavailable JOHANNA LEON Purpose Continuity of Care Document - 01-28-2008 through 2016 Problems Code Diagnosis DOS Provider Status M542 CERVICALGIA 02-12-2017 [facility] M5412 RADICULOPAT 12-17-2016 [facility] PHYS [id number] LAC W/O FB 09-05-2016 [facility] FINGER W/O INC DAMAGE NAIL INIT [id number] LAC W/O FB 09-05-2016 [facility], W/O DAMAGE PLLC NAIL INITIAL Z720 TOBACCO USE 09-05-2016 [facility] HOSP INC K20956 CHRONIC 06-19-2016 [facility] TENSION-TYP FAMILY E [facility]ACHE [facility] CTR NOT INTRACTABLE R0683 SNORING 06-19-2016 [facility] FAMILY [facility] Z0000 ENCOUNTER 02-10-2016 LABORATORY GEN ADULT [facility] OF MED EXAM SUSSY H W/O ABNORMAL FIND Z1151 ENCOUNTER 02-10-2016 LABORATORY FOR MARTIN OF SCREENING SUSSY H FOR HUMAN PAPILLOMAVI SHAYLA Z131 ENCOUNTER 02-10-2016 LABORATORY FOR MARTIN OF SCREENING SUSSY H FOR DIABETES MELLITUS G13636 ENCOUNTER 02-10-2016 LABORATORY FOR MARTIN OF SCREENING SUSSY H FOR LIPOID DISORDERS Z136 ENCOUNTER 02-10-2016 LABORATORY SCREENING MARTIN OF FOR SUSSY H CARDIOVASCU LAR DISORDERS B87560 ACQUIRED 02-10-2016 LABORATORY ABSENCE OF MARTIN OF BOTH CERVIX SUSSY H AND UTERUS J47604 ACQUIRED 02-10-2016 LABORATORY ABSENCE OF MARTIN OF OVARIES SUSSY H BILATERAL P79802 OTHER 02-01-2016 [facility] MUSCLE [facility] K219 GASTRO-ESOP 01-25-2016 [facility] H REFLUX FAMILY DISEASE [facility] WITHOUT ESOPHAGITIS 23586 UNSPECIFIED 07-13-2015 [facility] ARTHROPATHY SURGERY , LOWER LEG 40663 PAIN IN 07-13-2015 [place] [facility] GENERAL PELVIC SURGERY REGION AND THIGH 7242 LUMBAGO 07-13-2015 [facility] 7243 SCIATICA 07-06-2015 [facility] PRIMARY CARE CENTER 44518 SPASM OF 07-06-2015 [facility] MUSCLE PRIMARY CARE CENTER 4611 ACUTE 06-04-2015 [facility] FRONTAL PRIMARY SINUSITIS CARE CENTER 7840 HEADACHE 06-04-2015 [facility] PRIMARY CARE CENTER 7862 COUGH 06-04-2015 [facility] PRIMARY CARE CENTER 45071 OBESITY, 02-10-2015 [facility] 4019 UNSPECIFIED 02-10-2015 [facility] HYPERTENSIO N 26239 OTHER 02-10-2015 [facility] FATIGUE V8542 BODY MASS 02-10-2015 [facility] 45.0-49.9 ADULT 6259 UNSPEC 06-02-2014 [facility] SYMPTOM PRIMARY ASSOC CARE CENTER W/FEMALE GENITAL ORGANS 6272 SYMPTOMATIC 06-02-2014 [facility] PRIMARY MENOPAUSAL/ CARE CENTER FEMALE CLIMACTERIC STATES 49804 DIARRHEA 06-02-2014 [facility] V4577 ACQUIRED 06-02-2014 [facility] ABSENCE OF PRIMARY ORGAN CARE CENTER GENITAL ORGANS V7231 ROUTINE 06-02-2014 [facility] GYNECOLOGIC PRIMARY AL CARE CENTER EXAMINATION 77083 PAIN IN 03-12-2014 [place] [facility], GENERAL LOWER LEG SURGERY 86807 REGULAR 01-07-2014 JOYNER NERY ASTIGMATISM 49523 PAIN IN 10-10-2013 CAMACHO THO JOINT, ANKLE AND FOOT V7612 OTHER 08-20-2013 [place] SCREENING REGIONAL MAMMOGRAM MEDICAL V074 HORMONE 07-23-2013 GORE DEN REPLACEMENT THERAPY 7089 UNSPECIFIED 07-07-2013 [facility] 6826 CELLULITIS 06-29-2013 SALE[facility] AND ABSCESS CHR OF LEG EXCEPT FOOT 41830 MIGRAINE 10-07-2012 NEUS ADITYA UNSP W/O INTRACT W/O STATUS MIGRAINOSUS 4619 ACUTE 09-11-2012 NEUS ADITYA SINUSITIS, UNSPECIFIED 53040 PAIN IN 09-11-2012 NEUS ADITYA JOINT, SITE UNSPECIFIED 7245 UNSPECIFIED 09-11-2012 NEUS ADITYA BACKACHE V0481 NEED 08-20-2012 [facility] PROPHYLACTI HEALTH C DEPARTMENT VACCINATION &INOCULATIO N FLU 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 [place] [facility] SPINE ASSOCIAT UNSPECIFIED 2189 LEIOMYOMA 12-28-2011 SHOWER GATICA OF UTERUS, UNSPECIFIED 6146 PELVIC 12-28-2011 SHOWER GATICA PERITONEAL ADHESIONS, FEMALE 6160 CERVICITIS 12-28-2011 [facility] [place] [facility] ENDOCERVICI TIS 6202 OTHER AND 12-28-2011 [facility] UNSPECIFIED [place] [facility] OVARIAN CYST 6253 DYSMENORRHE 12-28-2011 SHOWER GATICA A V7284 UNSPECIFIED 12-22-2011 [place] [facility] PRE-OPERATI MEDICAL VE EXAMINATION V7283 OTHER 12-14-2011 SHOWER GATICA SPECIFIED PRE-OPERATI VE EXAMINATION 45980 UNSPECIFIED 11-28-2011 BLU NAN GANGLION 7931 NONSPEC 08-27-2011 [place] [facility] OTH EXAM ASSOCIAT BODY STRUCT LUNG FIELD 02008 URGENCY OF 08-09-2011 LABORATORY URINATION & BIODIAGNOST ICS V7381 SPECIAL 08-09-2011 PATHOLOGY & SCREENING CYTOLOGY EXAMINATION LAB HUMAN PAPILVIRUS 2409 GOITER, 08-01-2011 [place] UNSPECIFIED RADIOLOGY ASSOCIAT 7224 DEGENERATIO 08-01-2011 [place] N OF RADIOLOGY CERVICAL ASSOCIAT INTERVERTEB RAL DISC 6264 IRREGULAR 07-27-2011 [facility] MENSTRUAL PRIMARY CYCLE CARE CENTER V7791 SCREENING 07-27-2011 [facility] FOR LIPOID PRIMARY DISORDERS CARE CENTER 2564 POLYCYSTIC 07-19-2011 [facility] OVARIES PRIMARY [facility]ARE CENTER 6250 DYSPAREUNIA 07-19-2011 [facility] 00224 GENERALIZED 07-18-2011 LABORATORY PAIN & BIODIAGNOST ICS V762 SCREENING 07-18-2011 [facility] FOR PRIMARY MALIGNANT CARE CENTER NEOPLASM OF THE CERVIX 33305 UNSPECIFIED 03-28-2011 [facility] PRIMARY ARTHROPATHY CARE CENTER SITE UNSPECIFIED 460 ACUTE 03-09-2011 [facility] NASOPHARYNG PRIMARY ITIS CARE CENTER 490 BRONCHITIS 02-10-2011 [facility] SPECIFIED MEDICAL ACUTE OR CHRONIC 79735 OTHER 02-10-2011 [place] DISEASES OF RADIOLOGY LUNG NOT ASSOCIAT ELSEWHERE CLASSIFIED 7841 THROAT PAIN 02-10-2011 [facility] 3540 CARPAL 12-12-2010 [facility] TUNNEL PRIMARY SYNDROME CARE CENTER 7273 OTHER 12-12-2010 [facility] BURSITIS PRIMARY DISORDERS CARE CENTER 13664 ESOPHAGEAL 10-04-2010 [facility] REFLUX PRIMARY CARE CENTER V679 UNSPECIFIED 10-04-2010 [facility] FOLLOW-UP PRIMARY EXAMINATION CARE CENTER 07299 UNSPECIFIED 09-07-2010 [facility] VAGINITIS PRIMARY AND CARE CENTER VULVOVAGINI TIS 6248 OTH SPEC 09-07-2010 [facility] NONINFLAMMA PRIMARY TORY CARE CENTER DISORDER VULVA&PERIN EUM 5206 DISTURBANCE 02-24-2010 [facility] TOOTH AGARWAL ERUPTION 5680 PERITONEAL 12-01-2009 [facility] V252 STERILIZATI 12-01-2009 [place] [facility] H ANESTHESIA PSC V2509 OTH GENERAL 11-29-2009 [facility] PRIMARY CNSL&ADVICE CARE CONTRACEPT CENTERINC MANAGEMENT 72622 CHRONIC 10-20-2009 [facility] TENSION PRIMARY TYPE CARE HEADACHE CENTERINC V242 ROUTINE 10-20-2009 [facility] PRIMARY FOLLOW-UP CARE CENTERINC 15477 DIAB W/O 10-19-2009 [facility] COMP TYPE PRIMARY II/UNS NOT CARE STATED CENTERINC UNCNTRL 462 ACUTE 10-19-2009 [facility] PHARYNGITIS PRIMARY CARE CENTERINC V700 ROUTINE 10-19-2009 [facility] GENERAL PRIMARY MEDICAL CARE EXAM@HEALTH CENTERINC CARE FACL 19711 POST TERM 09-08-2009 [facility] PG DELIV PRIMARY W/WO CARE MENTION CENTERINC ANTPRTM COND V270 OUTCOME OF 09-08-2009 [facility] DELIVERY PRIMARY SINGLE CARE LIVEBORN CENTERINC 650 NORMAL 09-06-2009 [place] DELIVERY H ANESTHESIA PSC V221 SUPERVISION 08-30-2009 [facility] OF OTHER PRIMARY NORMAL CARE CENTERINC V286 SCREENING 08-10-2009 [facility] 7821 RASH AND 07-23-2009 [facility] OTHER PRIMARY NONSPECIFIC CARE SKIN CENTERINC ERUPTION 7028 OTHER 06-28-2009 [facility] SPECIFIED PRIMARY DERMATOSES CARE CENTERINC 63162 UNS 04-30-2009 [facility] ABNORM MGMT PRIMARY MOTH CARE ANTPRTM CENTERINC COND/COMP V237 INSUFFICIEN 04-30-2009 [facility] T PRIMARY CARE CARE CENTERINC V222 03-24-2009 [facility] STATE, PRIMARY INCIDENTAL CARE CENTERINC 04817 REFLUX 02-24-2009 [facility] ESOPHAGITIS PRIMARY CARE CENTERINC 463 ACUTE 11-02-2008 Severo BAUER TONSILLITIS L 6269 UNS D/O 09-16-2008 [facility] MENSTRUATIO PRIMARY N&OTH ABN CARE BLEED FE CENTERINC GNT TRACT 11351 UNSPECIFIED 01-28-2008 [facility] [email or web address] [facility] Medications Na ND Rx Da Fi Fi [...] 00 AN ti RA 50 1- 7- 00 06 S ve ZO 06 20 20 [...] 50 1- 7- 00 06 S ve [place] 10 20 20 51 PH N 21 17 17 19 AR HC 0 38 MA L CY 50 0 MG TA BL ET ME 23 04 05 30 30 00 DE Ac TF 15 -2 -2 .0 00 AN ti OR 50 6- 6- 00 06 S ve [place] 10 20 20 51 PH N 21 17 17 19 AR HC 0 38 MA L CY 50 0 MG TA BL ET AT 00 04 05 30 30 00 DE Ac OR 37 -2 -2 .0 00 AN ti VA 83 6- 6- [address] 95 20 [...] 00 AN ti VA 10 1- 8- [address] 12 20 20 51 PH AT 19 17 17 19 AR IN 0 37 MA CY 10 MG TA BL ET ME 23 03 04 30 30 00 DE Ac TF 15 -2 -2 .0 00 AN ti OR 50 1- 1- 00 06 S ve [place] 10 20 20 51 PH N 21 17 17 19 AR HC 0 38 MA L CY 50 0 MG TA BL ET OM 60 03 04 30 30 00 DE Ac EP 50 -2 -2 .0 00 AN ti RA 50 1- 1- 00 06 S ve ZO 06 20 20 [...] DR CY 20 MG TA BL ET ME 23 01 02 60 30 00 DE Ac TF 15 -1 -1 .0 00 AN ti OR 50 0- 0- 00 06 S ve [place] 10 20 20 50 PH N 21 17 17 81 AR HC 0 36 MA L CY 50 0 MG TA BL ET TO 68 01 02 60 30 00 DE Ac PI [...] 20 MG TA BL ET AT 00 01 02 30 30 00 DE Ac OR [...] 50 2- 9- 00 06 S ve [place] 10 20 20 49 PH N 21 [...] MA 50 CY MG TA BL ET CY 59 12 01 60 30 00 DE Ac CL 74 -0 -0 .0 00 AN ti OB 60 2- 9- 00 06 S ve EN 17 20 20 49 PH ZA 71 16 17 99 AR ME 0 37 MA IN CY E 10 MG TA BL ET AT 00 12 01 30 30 00 DE Ac OR 37 -0 -0 .0 00 AN ti VA 83 2- 9- [address] 95 20 20 49 PH AT 07 16 17 99 AR IN 7 38 MA CY 10 MG TA BL ET SE 16 10 10 3 30 30 DE 64 SH Ac RT 71 -1 -1 .0 AN 17 OW ti RA 40 7- 7- 00 S 34 ER ve LI 61 20 20 PH 6 NE 30 11 11 AR LA 5 MA UR HC CY A L L 10 IN 0 C MG TA BL ET CL 63 09 09 0 84 14 DE 64 SH Ac IN 30 -1 -1 .0 AN 15 OW ti DA 40 4- 5- 00 S 83 ER ve MY 69 20 20 PH 7 CI 20 11 11 AR LA N 1 MA UR HC CY A L L 15 IN 0 C MG CA PS UL E CI 16 09 09 0 28 14 DE 64 SH Ac ME 71 -1 -1 .0 AN 15 OW ti OF 40 4- 5- 00 S 83 ER ve LO 65 20 20 PH 8 XA 20 11 11 AR LA CI 2 MA UR N CY A HC L L IN 50 C 0 MG TA B TI 00 09 09 3 60 20 DE 64 GR Ac ZA 18 -0 -0 .0 AN 15 OS ti NI 54 2- 2- 00 S 31 SE ve DI 40 20 20 PH 4 R NE 05 11 11 AR TI 1 MA MO HC CY TH L Y 4 IN MG C TA BL ET DI 00 09 09 3 60 30 DE 64 GR Ac CL 78 -0 -0 .0 AN 15 OS ti OF 11 2- 2- 00 S 31 SE ve EN 78 20 20 PH 5 R AC 96 11 11 AR TI 0 MA MO SO CY TH D Y EC IN C 75 MG TA B ME 59 08 08 4 1. 1 MA [address] 76 -2 -2 00 YS 49 UN ti OX 24 4- 4- 0 09 G ve YP 53 20 20 LL 1 KA RO 70 11 11 E TH GE [address] N ER GY ON N E FA 15 [place] 0 LY MG /M HE L AL TH BU 00 08 08 0 20 3 MA 60 YO Ac TA 59 -2 -2 .0 YS 49 UN ti LB 13 4- 4- 00 09 G ve -A 36 20 20 LL 2 KA CE 90 11 11 E TH TA 1 OB RY KY N N- GY CA N FF FA [place] 50 LY -3 25 HE -4 AL [...] R MG IN C TA BL ET ONOFRE 53 10 10 0 14 7 DE 64 TU Ac LF 74 -1 -1 .0 AN 01 CK ti AM 60 4- 4- 00 S 33 ER ve ET 27 20 20 PH 6 HO 20 10 10 AR DA XA 5 MA NA ZO CY LE -T IN MP C DS TA BL ET FL 00 10 10 1 2. 14 DE 64 TU Ac UC 17 -1 -1 00 AN 01 CK ti ON 25 4- 4- 0 S 33 ER ve AZ 41 20 20 PH 7 OL 27 10 10 AR DA E 9 MA NA 15 CY 0 MG IN C TA BL ET SM 49 10 10 1 45 7 DE 64 TU Ac 34 -1 -1 .0 AN 01 CK ti CL 80 4- 4- 00 S 33 ER ve OT 79 20 20 PH 8 RI 37 10 10 AR DA MA 6 MA NA ZO CY LE IN 1% C CR EA M SE 16 08 08 2 30 30 DE 63 GO Ac RT 71 -2 -2 .0 AN 99 RE ti RA 40 4- 4- 00 S 12 ve LI 61 20 20 PH 7 DE NE 30 10 10 AR NI 5 MA SE HC CY A L 10 IN 0 C MG TA BL ET 00 08 08 2 9. 30 DE 63 GO Ac 17 -2 -2 00 AN 99 RE ti 30 4- 4- 0 S 12 ve 75 20 20 PH 8 DE 00 10 10 AR NI 0 MA SE CY A IN C SE 16 06 08 2 15 30 [...] 5 MA SE CY A IN C 00 [...] 09 09 AR RY TA 2 MA [place] CY HATCH N- RO CA LD FF [...] RI A IS AB EL V ME 60 12 12 00 30 15 DE 63 BR Ac LO 50 -0 -1 .0 AN 74 IN ti XI 52 8- 8- 00 S 07 DL ve CA 55 20 20 PH 2 EY M 30 08 08 AR M 7. 1 MA L 5 CY MG TA BL ET ME 37 12 12 00 28 28 RE 65 BR Ac IL 00 -0 -1 .0 YN 90 IN ti OS 00 1- 8- 00 OL 91 DL ve EC 45 20 20 DS EY 50 08 08 M OT 3 PH L C AR 20 MA .6 CY MG TA BL ET 00 12 12 00 30 30 RE 65 BR Ac 55 -0 -1 .0 YN 90 IN ti 50 1- 8- 00 OL 92 DL ve 87 20 20 DS EY 70 08 08 M 4 PH L AR MA CY 63 12 12 00 30 10 DE 63 BR Ac 30 -0 -1 .0 AN 74 IN ti 40 8- 8- 00 S 07 DL ve 71 20 20 PH 1 EY 32 08 08 AR M 0 MA L CY 49 10 11 00 30 30 [...] Procedure DOS Code Location Performer Comment RADEX 05651 RADIOLOGY CURE SPINE 7 INC CERVICAL 4 OR 5 VIEWS SIMPLE 76447 [facility] REPAIR 6 [facility] SCALP/NEC INC INC K/AX/HENRIK T/TRUNK 2.5CM/< IM ADM 13098 [facility] PRQ ID 6 [facility] SUBQ/IM INC INC NJXS 1 VACCINE ASSAY OF 03-17-201 55630 LAB [facility] THYROID 6 SUSSY SUSSY STIMULATI HOLDINGS HOLDINGS NG HORMONE TSH COMPREHEN 08905 LAB [facility] M[facility] SIVE 6 SUSSY SUSSY METABOLIC HOLDINGS HOLDINGS PANEL IADNA 05298 LABORATOR LABORATOR HUMAN 6 Y [facility] VIRUS H H HIGH-RISK TYPES CYTP C/V 91439 LABORATOR LABORATOR AUTO THIN 6 Y MARTIN OF Y MARTIN OF LYR [facility] PREPJ SCR H H MNL RESCR PHYS LIPID 37491 LAB [facility] M[facility] PANEL 6 SUSSY SUSSY HOLDINGS HOLDINGS LIPOPROTE 77378 LAB [facility] LAB MARTIN IN BLOOD 6 SUSSY SUSSY EDEN HOLDINGS HOLDINGS NUMBERS & SUBCLASSE S RADEX 40471 RADIOLOGY STEVEN SPINE 6 INC ITZEL CERVICAL 4 OR 5 VIEWS RADEX 56990 [facility] ZVAALA SPINE 6 FAMILY CERVICAL HEALTH 2 OR 3 CTR VIEWS INJECTION J1885 [facility] GARRETT LUCAS 6 FAMILY KETOROLAC HEALTH CTR TROMETHAM INE PER 15 MG THERAPEUT 84548 [facility] ZAVALA IC 6 FAMILY PROPHYLAC HEALTH TIC/DX CTR INJECTION SUBQ/IM RADEX HIP 01559 LUIS DIAZ OSMEL 5 W GENERAL UNILATERA SURGERY L COMPLETE MINIMUM 2 VIEWS RADEX 18842 LUIS DIAZ OSMEL SPINE 5 W GENERAL LUMBOSACR SURGERY AL 2/3 VIEWS INJ J0702 [facility] ZAVALA BETAMETHA 5 PRIMARY SONE CARE ACETATE & CENTER PHOSPHATE 3 MG THERAPEUT 38063 [facility] ZAVALA IC 5 PRIMARY PROPHYLAC CARE TIC/DX CENTER INJECTION SUBQ/IM 25 69303 [facility] 5 DIAGNOSTI DIAGNOSTI INCLUDES CS CS FRACTIONS IF PERFORMED GENERAL 12003 [facility] 5 DIAGNOSTI DIAGNOSTI PANEL CS CS COLLECTIO 09168 [facility] N VENOUS 5 DIAGNOSTI DIAGNOSTI BLOOD CS CS VENIPUNCT URE INJECTION J1885 AL[facility] DRAPER DEN 4 PRIMARY KETOROLAC CARE CENTER TROMETHAM INE PER 15 MG THERAPEUT 88757 AL[facility] CO GORE DEN IC 4 PRIMARY PROPHYLAC CARE TIC/DX CENTER INJECTION SUBQ/IM BLOOD 50859 LAB [facility] LAB [facility]ARTIN COUNT 4 SUSSY SUSSY COMPLETE HOLDINGS HOLDINGS AUTO&AUTO DIFRNTL WBC URNLS DIP 52216 LAB M[facility] LAB MARTIN 4 SUSSY SUSSY STICK/TAB HOLDINGS HOLDINGS LET RGNT AUTO W/O MICROSCOP Y SEDIMENTA 88862 LAB [facility] LAB [facility] TION RATE 4 SUSSY SUSSY RBC HOLDINGS HOLDINGS AUTOMATED CULTURE 64865 LAB MARTIN LAB MARTIN BACTERIAL 4 SUSSY SUSSY HOLDINGS HOLDINGS QUANTTATI VE COLONY COUNT URINE RADIOLOGI 03933 LUIS BOLIVAR C 4 W GENERAL EXAMINATI SURGERY ON KNEE 1/2 VIEWS INJECTION J3301 LUIS BOLIVAR 4 W GENERAL TRIAMCINO SURGERY LONE ACETONIDE NOS 10 MG ARTHROCEN 74380 LUIS BOLIVAR TESIS 4 W GENERAL ASPIR&/IN SURGERY J MAJOR JT/BURSA W/O OPHTH 76325 [facility] 4 XM&EVAL COMPRHNSV ESTAB PT 1/> RADEX 39996 JANICE GARCIAS FOOT 3 THO THO COMPLETE MINIMUM 3 VIEWS SCREENING G0202 LUIS SMITH 3 W W MAMMOGRAP [facility] IN[facility] CAD WHEN PERFORMD COMPUTER- 79957 LUIS SMITH AIDED 3 W W [facility] MED[facility] SCREENING MAMMOGRAP HY THERAPEUT 52916 NEUS ADITYA NEUS ADITYA IC 2 PROPHYLAC TIC/DX INJECTION SUBQ/IM INJECTION J1885 NEUS ADITYA NEUS ADITYA 2 KETOROLAC TROMETHAM INE PER 15 MG INJECTION J1885 NEUS ADITYA NEUS ADITYA 2 KETOROLAC TROMETHAM INE PER 15 MG THERAPEUT 22666 NEUS ADITYA NEUS ADITYA IC 2 PROPHYLAC TIC/DX INJECTION SUBQ/IM THERAPEUT 95333 NEUS ADITYA NEUS ADITYA IC 2 PROPHYLAC TIC/DX INJECTION SUBQ/IM INJECTION J1040 NEUS ADITYA NEUS ADITYA 2 METHYLPRE DNISOLONE ACETATE 80 MG INJECTION J1885 NEUS ADITYA NEUS ADITYA 2 KETOROLAC TROMETHAM INE PER 15 MG IIV3 65331 ARABELLA BELL VACCINE 2 CO HEALTH CO HEALTH SPLIT VIRUS 0.5 DEPARTMEN DEPARTMEN ML T T DOSAGE IM USE RADIOLOGI 23943 [facility] C 2 EIDER AFUA EXAMINATI RADIOLOGY ON ASSOCIAT SACROILIA C JNTS <3 VIEWS RADEX 47623 [facility] SACRUM & 2 COCCYX DIAGNOSTI DIAGNOSTI MINIMUM 2 C CENTER, C CENTER, VIEWS RADEX 57846 [facility] SPINE 2 EIDER AFUA LUMBOSACR RADIOLOGY AL ASSOCIAT MINIMUM 4 VIEWS INJECTION J1885 NEUS ADITYA NEUS ADITYA 2 KETOROLAC TROMETHAM INE PER 15 MG THERAPEUT 55283 NEUS ADITYA NEUS ADITYA IC 2 PROPHYLAC TIC/DX INJECTION SUBQ/IM LEVEL V 83295 [facility] CAROLANN SURG 2 [place] INC JAM PATHOLOGY GROSS&LEANNE ROSCOPIC EXAM LAPS 83059 SHOWER SHOWER TOTAL 2 GATICA GATICA HYSTERECT 250 GM/< W/RMVL TUBE/OVAR Y ANESTHESI 72043 [place] A 2 LTH ANT INTRAPERI ANESTHESI TONEAL A PSC LOWER ABD W/LAPS NOS COMPREHEN 86214 [facility] MEADOWVIE SIVE 2 W W METABOLIC REGIONAL REGIONAL PANEL MEDICAL MEDICAL COLLECTIO 22564 [facility] MEADOWVIE N VENOUS 2 W W BLOOD REGIONAL REGIONAL VENIPUNCT MEDICAL MEDICAL URE BLOOD 34984 [facility] MEADOWVIE COUNT 2 W W COMPLETE REGIONAL REGIONAL AUTO&AUTO MEDICAL MEDICAL DIFRNTL WBC URNLS DIP 26465 [facility] MEADOWVIE 2 W W STICK/TAB REGIONAL REGIONAL LET MEDICAL MEDICAL REAGENT AUTO MICROSCOP Y RADIOLOGI 86453 [place] [facility] C EXAM 2 PEDRO KNEE RADIOLOGY COMPLETE ASSOCIAT 4/MORE VIEWS RADIOLOGI 16705 [facility] C 1 EIDER AFUA EXAMINATI RADIOLOGY ON CHEST ASSOCIAT SINGLE VIEW FRONTAL CULTURE 55553 LABORATOR LABORATOR BACTERIAL 1 Y & Y & BIODIAGNO BIODIAGNO QUANTTATI STICS STICS VE COLONY COUNT URINE IADNA 89887 PATHOLOGY PATHOLOGY PAPILLOMA 1 & & VIRUS CYTOLOGY CYTOLOGY HUMAN LAB LAB AMPLIFIED PROBE TQ CYTP C/V 22852 LABORATOR LABORATOR AUTO THIN 1 Y & Y & LYR BIODIAGNO BIODIAGNO PREPJ SCR STICS STICS MNL RESCR PHYS URNLS DIP 53372 LABORATOR LABORATOR 1 Y & Y & STICK/TAB BIODIAGNO BIODIAGNO LET STICS STICS REAGENT AUTO MICROSCOP Y MRI BRAIN 19434 KALEY GARCIA BRAIN 1 MONISHA STEM W/[place] [address] KALEY GARCIA CERVICAL 1 [place] SPINE W/O RADIOLOGY CONTRAST ASSOCIAT MATERIAL COLLECTIO 27913 ALYSE MACIAS N VENOUS 1 PRIMARY BLOOD [place] [address] LABORATOR LABORATOR TESTOSTER 1 Y & Y & ONE FREE BIODIAG[place] [address] LABORATOR LABORATOR TESTOSTER 1 Y & Y & ONE TOTAL BIODIAGNO BIODIAGNO STICS STICS GLUCOSE 31875 LABORATOR LABORATOR QUANTITAT 1 Y & Y & CHANDRAKANT BLOOD BIODIAGNO BIODIAGNO XCPT STICS STICS REAGENT STRIP HEMOGLOBI 15051 LABORATOR LABORATOR N 1 Y & Y & GLYCOSYLA BIODIAGNO BIODIAGNO [place] [address] LABORATOR LABORATOR INSULIN 1 Y & Y & TOTAL BIODIAGNO BIODIAGNO STICS STICS LIPID 87147 LABORATOR LABORATOR PANEL 1 Y & Y & BIODIAGNO BIODIAGNO STICS STICS GLUCOSE 28072 LABORATOR LABORATOR POST 1 Y & Y & GLUCOSE BIODIAG[place] [address] ALYSE MACIAS TRANSVAGI 1 PRIMARY NAL CARE CENTER THERAPEUT 22007 ALYSE MACIAS IC 1 PRIMARY PROPHYLAC CARE TIC/DX CENTER INJECTION SUBQ/IM THERAPEUT 35064 ALYSE JO IC 1 PRIMARY DON PROPHYLAC CARE TIC/DX CENTER INJECTION SUBQ/IM BLOOD 64270 LABORATOR LABORATOR COUNT 1 Y & Y & COMPLETE BIODIAGNO BIODIAGNO AUTO&AUTO STICS STICS DIFRNTL WBC URINE 83019 ALYSE JO 1 PRIMARY DON TEST CARE VISUAL CENTER COLOR CMPRSN METHS URNLS DIP 97586 LABORATOR LABORATOR 1 Y & Y & STICK/TAB BIODIAGNO BIODIAGNO LET STICS STICS REAGENT AUTO MICROSCOP Y CULTURE 81934 LABORATOR LABORATOR BACTERIAL 1 Y & Y & BIODIAGNO BIODIAGNO QUANTTATI STICS STICS VE COLONY COUNT URINE IADNA 27033 LABORATOR LABORATOR CHLAMYDIA 1 Y & Y & BIODIAGNO BIODIAGNO TRACHOMAT STICS STICS IS AMPLIFIED PROBE TQ INJECTION [id number] ALYSE JO 1 PRIMARY DON KETOROLAC CARE CENTER TROMETHAM INE PER 15 MG COLLECTIO 05661 ALYSE Rodgers VENOUS 1 PRIMARY PRIMARY BLOOD CARE CARE VENIPUNCT CENTER CENTER URE BASIC 36278 LABORATOR LABORATOR METABOLIC 1 Y & Y & PANEL BIODIAGNO BIODIAGNO [place] [address] LABORATOR LABORATOR THYROID 1 Y & Y & STIMULATI BIODIAGNO BIODIAGNO NG STICS STICS HORMONE TSH IADNA 42931 LABORATOR LABORATOR NEISSERIA 1 Y & Y & BIODIAGNO BIODIAGNO GONORRHOE STICS STICS AE AMPLIFIED PROBE TQ C-REACTIV 70257 LABORATOR LABORATOR E PROTEIN 1 Y & Y & BIODIAGNO BIODIAGNO STICS STICS COLLECTIO 78113 ALYSE TIAN N VENOUS 1 PRIMARY BLOOD CARE VENIPUNCT CENTER URE RHEUMATOI 57780 LABORATOR LABORATOR D FACTOR 1 Y & Y & QUANTITAT BIODIAGNO BIODIAGNO CHANDRAKANT STICS STICS IAADIADOO 75240 ALYSE TIAN 1 PRIMARY STREPTOCO CARE CCUS CENTER GROUP A IAADIADOO 22350 LUIS SMITH 1 W W STREPTOCO [facility] CCUS MEDICAL MEDICAL GROUP A RADIOLOGI 87796 LUIS SMITH C EXAM 1 W W CHEST 2 [facility] VIEWS MEDICAL MEDICAL FRONTAL&L ATERAL CUL 24984 MEADOWVIE MEADOWVIE PRSMPTV 1 W W PTHGNC [facility] ORGANISM MEDICAL MEDICAL SCRN W/COLONY ESTIMJ SMR PRIM 04794 ALYSE JO SRC WET 0 [facility]IMARY [facility] NFCT AGT CENTER CUL BACT 50640 LABORATOR LABORATOR XCPT 0 Y & Y & URINE BIODIAGNO BIODIAGNO BLOOD/STO STICS STICS OL AEROBIC ISOL CULTURE 95450 LABORATOR LABORATOR BACTERIAL 0 Y & Y & ANY BIODIAGNO BIODIAGNO SOURCE STICS STICS ANAEROBIC ISO&ID SMR PRIM 89095 LABORATOR LABORATOR SRC 0 Y & Y & GRAM/GIEM BIODIAGNO BIODIAGNO SA STAIN STICS STICS BCT FUNGI/RONALD L DEEP D9220 LAZARO AGARWAL SEDATION/ 0 Bertrand Martinez GENERAL ANESTHESI A-1ST 30 MINUTES RADIOLOGI 21673 Michelle DELACRUZ EXAM 0 Bertrand Martinez TEETH COMPLETE FULL MOUTH ANES IPER 95454 COMMONWEA TRISHA, LWR ABD 0 LTH ALLI E W/LAPS ANESTHESI TUBAL A PSC LIGATION/ TRANSECT OCCLUSION 16660 MEADOWVIE MEADOWVIE FLP TUBE 0 W W DEV [facility] VAG/SUPRA MEDICAL MEDICAL PUBIC CENTER CENTER APPR LAPAROSCO 86442 ALYSE SCHILLING MEESE, PY 0 PRIMARY THIERNO P FULGURATI CARE ON CENTERINC OVIDUCTS CULTURE 87050 MEADOWVIE MEADOWVIE BACTERIAL 0 W W [facility] QUANTTATI MEDICAL MEDICAL VE COLONY CENTER CENTER COUNT URINE COLLECTIO 09685 MEADOWVIE MEADOWVIE N VENOUS 0 W W BLOOD [facility] VENIPUNCT MEDICAL MEDICAL URE CENTER CENTER URINE 89293 MEADOWVIE MEADOWVIE 0 W W TEST [facility] VISUAL [facility] MEDICAL COLOR CENTER CENTER CMPRSN METHS POTASSIUM 08040 MEADOWVIE MEADOWVIE SERUM 0 W W PLASMA/WH [facility] OLE BLOOD MEDICAL MEDICAL CENTER CENTER BLOOD 81208 MEADOWVIE MEADOWVIE COUNT 0 W W COMPLETE [facility] AUTO&AUTO MEDICAL MEDICAL DIFRNTL CENTER CENTER WBC URNLS DIP 79291 MEAWASHA MEADOWVIE 0 W W STICK/TAB [facility] LET [facility] MEDICAL REAGENT CENTER CENTER AUTO MICROSCOP Y LIPID 86021 MEADOWVIE MEADOWVIE PANEL 9 W W [facility] CENTER HEMOGLOBI 30107 INDIAWASHA MEADOWVIE N 9 W W GLYCOSYLA [facility] CARI [facility] MEDICAL MEDICAL CENTER CENTER BLOOD 25846 MEADOWVIE MEADOWVIE COUNT 9 W W COMPLETE [facility] AUTO&AUTO MEDICAL MEDICAL DIFRNTL CENTER CENTER WBC COLLECTIO 32647 [place]HA OSBORNEWASHA N VENOUS 9 W W BLOOD [facility] VENIPUNCT [facility] [place] [place] [address] [place] OSBORNEWASHA THYROID 9 W W STIMULATI [facility] NG [facility] HORMONE CENTER CENTER TSH BASIC 90720 LUIS OSBORNEWVIE METABOLIC 9 W W PANEL [facility] CALCIUM MEDICAL MEDICAL TOTAL CENTER CENTER INJECTION J1885 ALYSE SEARS, 9 PRIMARY ELVIRA E KETOROLAC CARE CENTERINC TROMETHAM INE PER 15 MG THERAPEUT 62295 ALYSE SEARS, 9 PRIMARY ELVIRA E PROPHYLAC CARE TIC/DX CENTERINC INJECTION SUBQ/IM OPHTH 53736 [facility] 9 VISION KYLE A XM&EVAL COMPRHNSV ESTAB PT 1/> HOSPITAL 46934 ALYSE SPIVEY, DISCHARGE 9 PRIMARY THIERNO P DAY CARE MANAGEMEN CENTERINC T 30 MIN/< SBSQ 36465 ALYSE SPIVEY, HOSPITAL 9 PRIMARY THIERNO P CARE/DAY CARE 15 CENTERINC MINUTES VAGINAL 00303 ALYSE SPIVEY, DELIVERY 9 PRIMARY THIERNO P ONLY CARE CENTERINC NEURAXIAL 11216 COMMONWEA BRAUGHTON LABOR 9 LTH , RYLAND Elkins ANALG/ANE ANESTHESI S PLND A PSC VAGINAL DELIVERY OTHER 7359 INDIAWASHA INDIAWASHA MANUALLY 9 W W ASSISTED [facility] DELIVERY [facility] 734 MEADOWVIE MEADOWVIE INDUCTION 9 W W OF LABOR [facility] CENTER URNLS DIP 81994 ALYSE SPIVEY, 9 PRIMARY THIERNO P STICK/TAB CARE LET RGNT CENTERINC NON-AUTO W/O MICRSCP 19629 ALYSE PARIKH, NONSTRESS 9 PRIMARY JORDIN A TEST CARE CENTERINC URNLS DIP 67342 ALYSE PARIKH, 9 PRIMARY JORDIN A STICK/TAB CARE LET RGNT CENTERINC NON-AUTO W/O MICRSCP URNLS DIP 13225 ALYSE JO, 9 PRIMARY CLINT R STICK/TAB CARE LET RGNT CENTERINC NON-AUTO W/O MICRSCP URNLS DIP 07527 ALYSE LEON, 9 PRIMARY JOHANNA STICK/TAB CARE LET RGNT CENTERINC NON-AUTO W/O MICRSCP CUL 49265 LUIS SMITH PRSMPTV 9 W W PTHGNSAN [facility] SCRN CENTER CENTER W/COLONY ESTIMJ URNLS DIP 85646 ALYSE LEON, 9 PRIMARY JOHANNA STICK/TAB CARE LET RGNT CENTERINC NON-AUTO W/O MICRSCP URNLS DIP 86333 ALYSE NEW, 9 PRIMARY KRISTAL J STICK/TAB CARE LET RGNT CENTERINC NON-AUTO W/O MICRSCP COLLECTIO 34674 ALYSE NEW, N 9 PRIMARY KRISTAL J CAPILLARY CARE BLOOD CENTERINC SPECIMEN URNLS DIP 88395 ALYSE SCHILLING SHOWER, 9 PRIMARY AKILAH L STICK/TAB CARE LET RGNT CENTERINC NON-AUTO W/O MICRSCP URNLS DIP 02430 ALYSE JARAMILLO, 9 PRIMARY REGINALDO W STICK/TAB CARE LET RGNT CENTERINC NON-AUTO W/O MICRSCP GLUCOSE 53627 [facility] POST 9 [facility] INC GLUCOSE DOSE COLLECTIO 82593 ALYSE JARAMILLO, N VENOUS 9 PRIMARY REGINALDO W BLOOD CARE VENIPUNCT CENTERINC URE URNLS DIP 24219 ALYSE SPIVEY, 9 PRIMARY THIERNO P STICK/TAB CARE LET RGNT CENTERINC NON-AUTO W/O MICRSCP [place] PREG 71348 ALYSE SCHILLING MEESE, UTERUS 9 PRIMARY THIERNO P W/DETAIL CARE CENTERINC SERGIO 1ST GESTATION URNLS DIP 75616 ALYSE LEON, 9 PRIMARY JOHANNA STICK/TAB CARE LET RGNT CENTERINC NON-AUTO W/O MICRSCP IADNA 75737 [facility] NEISSERIA 9 [facility] GONORRHOE AE AMPLIFIED PROBE TQ IADNA 28880 [facility] CHLAMYDIA 9 [facility] TRACHOMAT IS AMPLIFIED PROBE TQ CYTP 12084 [facility] CERV/VAG 9 [facility] AUTO THIN LAYER PREP MNL SCREEN URNLS DIP 79845 ALYSE SCHILLING EDWARD, 9 PRIMARY JOHANNA STICK/TAB CARE LET RGNT CENTERINC NON-AUTO W/O MICRSCP COLLECTIO 20316 ALYSE LEON, N VENOUS 9 PRIMARY [place] [address] ALYSE TONIE LEON, 9 PRIMARY JOHANNA UTERUS 14 CARE WK CENTERINC TRANSABDL GESTAT URINE 10498 ALYSE SCHILLING DEL 9 PRIMARY KENNEY TEST CARE DECALVO, VISUAL CENTERINC LENA COLOR NGOZI V CMPRSN METHS DESTRUCTI 74894 [facility], ON 8 POINT CORTES PREMALIGN FAMILY ANT CARE, [facility] INC. 1ST Encounters Encounter Start End Date Code Location Performer Type Date EMERGENCY 76397 [facility] 7 7 URIEL DEPARTMEN EMERGENCY T VISIT PHYS HIGH/URGE NT SEVERITY [facility]OSP[facility] - 6 6 [facility] OUT[facility] T EMERGENCY 39518 [facility] 6 6 [facility] DEPARTMEN INC T VISIT MODERATE SEVERITY OFFICE 17235 ALYSE ZAVALA OUTPATIEN 6 6 FAMILY T VISIT HEALTH 15 CTR MINUTES OFFICE 59281 ALYSE ZAVALA OUTPATIEN 6 6 FAMILY T VISIT HEALTH 15 CTR MINUTES OFFICE 54596 ALYSE ZAVALA OUTPATIEN 6 6 FAMILY T VISIT HEALTH 15 CTR MINUTES OFFICE 10520 ALYSE ZAVALA OUTPATIEN 6 6 FAMILY T VISIT HEALTH 25 CTR MINUTES OFFICE 61851 LUIS BOLIVAR OUTPATIEN 5 5 W GENERAL T VISIT SURGERY 15 MINUTES OFFICE 67732 ALYSE GARRETT LUCAS OUTPATIEN 5 5 PRIMARY T VISIT CARE 25 CENTER MINUTES OFFICE 43271 ALYSE GARRETT LUCAS OUTPATIEN 5 5 PRIMARY T VISIT CARE 15 CENTER MINUTES OFFICE 01469 ALYSE DRAPER DEN OUTPATIEN 5 5 PRIMARY T VISIT CARE 15 CENTER MINUTES OFFICE 53260 ALYSE DRAPER DEN OUTPATIEN 4 4 PRIMARY T VISIT CARE 15 CENTER MINUTES OFFICE 03190 ALYSE SCHILLING SHOWER OUTPATIEN 4 4 PRIMARY GATICA T VISIT CARE 25 CENTER MINUTES PERIODIC 29890 ALYSE SCHILLING SHOWER PREVENTIV 4 4 PRIMARY GATICA E MED EST CARE PATIENT CENTER 18-39 YRS OFFICE 05688 LUIS BOLIVAR OUTPATIEN 4 4 W GENERAL T NEW 30 SURGERY MINUTES HOSPITAL [facility] - 3 [facility] 46164 LIMAE DEN OUTPATIEN 3 3 T VISIT 15 MINUTES EMERGENCY 25780 NELIDA JO 3 3 EMERGENCY [facility] DEPARTMEN SERVICES T VISIT HIGH/URGE NT SEVERITY EMERGENCY 53033 THERESE SALEH 3 3 CHR CHR DEPARTMEN T VISIT HIGH/URGE NT SEVERITY OFFICE 91232 NEUS ADITYA OUTPATIEN 2 2 T VISIT 25 MINUTES OFFICE 38550 NEUS ADITYA OUTPATIEN 2 2 T VISIT 25 MINUTES HOSPITAL LUIS - 2 2 W OUTPATIEN REGIONAL T MEDICAL OFFICE 56440 SHOWER SHOWER OUTPATIEN 2 2 EN GATICA T VISIT 40 MINUTES OFFICE 81014 BLU HURT OUTPATIEN 2 2 LEXI ELLIOTT T VISIT 25 MINUTES OFFICE 53755 ALYSE LEON COLLEEN OUTPATIEN 1 1 PRIMARY T VISIT CARE 15 CENTER MINUTES OFFICE 63937 ALYSE LEON COLLEEN OUTPATIEN 1 1 PRIMARY T VISIT CARE 15 CENTER MINUTES PERIODIC 13839 ALYSE JO PREVENTIV 1 1 PRIMARY DON E MED EST CARE PATIENT CENTER 18-39 YRS OFFICE 47851 ALYSE TIAN OUTPATIEN 1 1 PRIMARY T VISIT CARE 15 CENTER MINUTES OFFICE 63385 ALYSE TIAN OUTPATIEN 1 1 PRIMARY T VISIT CARE 15 CENTER MINUTES HOSPITAL INDIAWVIE - 1 1 W OUTPATIEN REGIONAL T MEDICAL EMERGENCY 63600 LUIS 1 1 W DEPARTMEN REGIONAL T VISIT MEDICAL MODERATE SEVERITY EMERGENCY 83779 NEILDA SALEH 1 1 [facility]ERGENCY [facility] T VISIT HIGH/URGE NT SEVERITY OFFICE 36660 ALYSE SCHILLING KING OUTPATIEN 1 1 PRIMARY WAD T VISIT CARE 15 CENTER MINUTES OFFICE 68239 ALYSE JO OUTPATIEN 0 0 PRIMARY DON T VISIT CARE 15 CENTER MINUTES OFFICE 65897 ALYSE JO OUTPATIEN 0 0 PRIMARY DON T VISIT CARE 15 CENTER MINUTES OFFICE 04991 BRENNA DELACRUZ 0 0 Bertrand Gregory [facility] 20 MINUTES HOSPITAL MEADOWVIE - 0 0 W OUTPATIEN [facility] MEADOWVIE - 0 0 W [facility] OFFICE 95400 ALYSE SPIVEY OUTPATIEN 0 0 PRIMARY THIERNO P T VISIT CARE 25 CENTERINC MINUTES HOSPITAL LUIS - 9 9 W [facility] OFFICE 13560 ALYSE SPIVEY OUTPATIEN 9 9 PRIMARY THIERNO P T VISIT CARE 25 CENTERINC MINUTES OFFICE 36134 ALYSE SEARS OUTPATIEN 9 9 PRIMARY ELVIRA E T VISIT CARE 25 CENTERINC MINUTES OFFICE 73160 ALYSE QUINTEROS OUTPATIEN 9 9 PRIMARY Y, KATHLEEN T VISIT CARE V 15 CENTERINC MINUTES HOSPITAL LUIS - 9 9 W [facility] OFFICE 67553 ALYSE SPIVEY OUTPATIEN 9 9 PRIMARY THIERNO P T VISIT CARE 15 CENTERINC MINUTES OFFICE 46187 BRENNA MCGUIRE 9 9 PRIMARY JORDIN A T VISIT CARE 15 CENTERINC MINUTES OFFICE 04389 ALYSE JO OUTDONOVAN 9 9 PRIMARY CLINT R T VISIT CARE 15 CENTERINC MINUTES HOSPITAL LUIS - 9 9 W [facility] OFFICE 77544 BRENNA TAM 9 9 PRIMARY JOHANNA T VISIT CARE 15 CENTERINC MINUTES OFFICE 63435 ALYSE LEON OUTPATIJOEY 9 9 PRIMARY JOHANNA T VISIT CARE 15 CENTERINC MINUTES OFFICE 42609 ALYSE QUINTEROS OUTPATIEN 9 9 PRIMARY Y, KATHLEEN T VISIT CARE V 15 CENTERINC MINUTES OFFICE 30821 ALYSE NEW OUTDONOVAN 9 9 PRIMARY KRISTAL J T VISIT CARE 15 CENTERINC MINUTES OFFICE 20158 ALYSE HOOVER OUTPATIEN 9 9 PRIMARY AKILAH L T VISIT CARE 15 CENTERINC MINUTES OFFICE 61170 BRENNA VENCES 9 9 PRIMARY REGINALDO W T VISIT CARE 15 CENTERINC MINUTES OFFICE 87291 ALYSE SPIVEY, OUTPATIEN 9 9 PRIMARY THIERNO P T VISIT CARE 15 CENTERINC MINUTES OFFICE 12787 ALYSE SPIVEY, OUTPATIEN 9 9 PRIMARY THIERNO P T VISIT CARE 15 CENTERINC MINUTES OFFICE 64265 ALYSE CO EDWARD OUTPATIEN 9 9 PRIMARY JOHANNA T VISIT CARE 15 CENTERINC MINUTES OFFICE 40308 ALYSE CO EDWARD OUTPATIEN 9 9 PRIMARY JOHANNA T VISIT CARE 15 CENTERINC MINUTES OFFICE 15866 ALYSE DUKE OUTPATIEN 9 9 PRIMARY KENNEY T VISIT CARE DECALVO, 15 CENTERINC LENA MINUTES NGOZI V OFFICE 43824 ALYSE ALFARO OUTPATIEN 9 9 PRIMARY RAYSHAWN E T VISIT CARE 25 CENTERINC MINUTES OFFICE 11316 LIZETTE BAUER OUTPATIEN 8 8 M L M L T VISIT 15 MINUTES OFFICE 51722 LIZETTE BAUER OUTPATIEN 8 8 M L M L T VISIT 15 MINUTES OFFICE 65997 BRENNA RODRIGUEZ 8 8 PRIMARY THIERNO P T VISIT CARE 15 CENTERINC MINUTES OFFICE 43043 [facility] BRENNA COSTA 8 8 POINT CORTES T VISIT FAMILY 15 CARE, MINUTES INC.
--- OUTSIDE RECORDS SUMMARY | 2017-06-21 01:35 | External Medical Summary Rpt ---
Author Author , RACQUEL CLEMENT Address Unknown Phone [email or web address] Team Providers Care Brush Polisher Name Role Phone [facility] [place] [facility], Unavailable Unavailable [facility] [employer] CAROLANN JAM, CAROLANN Unavailable Unavailable [email or web address] Unavailable Unavailable DEPARTMENT, [email or web address] Unavailable Unavailable DEPARTMENT, [facility] RYLAND GRAY, Unavailable Unavailable [...] HOLDINGS, LAB [facility] [employer] [facility], Unavailable Unavailable [facility] [employer] & Unavailable Unavailable [facility] & Unavailable Unavailable [facility] LABORATORY [facility] OF Unavailable Unavailable [facility], [facility] Unavailable Unavailable [facility], [facility] STEVEN MILLIGAN Unavailable Unavailable [facility] Unavailable [facility]available [facility], [facility] Unavailable [facility], [facility] KATHLEEN BUCHANAN V, Unavailable Unavailable KATHLEEN BUCHANAN V [facility] Unavailable Unavailable SERVICES, [facility] Unavailable Unavailable CENTER,, [facility], [facility] NURSE MANAGER Unavailable Unavailable [facility], [facility] NURSE MANAGER [facility] Unavailable Unavailable ASSOCIAT, [facility] Unavailable Unavailable SURGERY, [facility] Unavailable Unavailable MEDICAL, [facility] Unavailable Unavailable MEDICAL CENTER, [facility] THIERNO SPIVEY, Unavailable Unavailable THIERNO SPIVEY [...] Unavailable GATICA SHOWER GATICA, SHOWER Unavailable Unavailable AGTICA SHOWER, AKILAH L, Unavailable Unavailable SHOWER, LAZARO NIETO, Unavailable Unavailable [facility]O [facility], Unavailable Unavailable [facility] CH[facility], Unavailable Unavailable [facility] IGOR, CORTES, Unavailable Unavailable IGOR, CORTES SANDRO JO Unavailable Unavailable SANDRO SHELL Unavailable Unavailable PRIYANKA GROVE, SANDRO Unavailable Unavailable CLINT GUDINO, Unavailable Unavailable CLINT JO COLLEEN, EDWARD COLLEEN Unavailable Unavailable JOHANNA LOEN, Unavailable Unavailable JOHANNA LEON Purpose Continuity of Care Document - 01-28-2008 through 2016 Problems Code Diagnosis DOS Provider Status M542 CERVICALGIA 02-12-2017 [facility] M5412 RADICULOPAT 12-17-2016 [facility] PHYS [id number] LAC W/O FB 09-05-2016 [facility] F[facility]ER W/O INC DAMAGE NAIL INIT [id number] LAC W/O FB 09-05-2016 MAR[facility] UNS [facility]ICIANS, W/O DAMAGE PLLC NAIL INITIAL Z720 TOBACCO USE 09-05-2016 [facility] Y24859 CHRONIC 06-19-2016 [facility] TENSION-TYP FAMILY E [facility] NOT INTRACTABLE R0683 SNORING 06-19-2016 [facility] FAMILY [facility] Z0000 ENCOUNTER 02-10-2016 LABORATORY GEN ADULT M[facility]IN OF MED EXAM [facility] W/O ABNORMAL FIND Z1151 ENCOUNTER 02-10-2016 LABORATORY FOR MARTIN OF SCREENING [facility]SY [facility] FOR HUMAN PAPILLOMAVI SHAYLA Z131 ENCOUNTER 02-10-2016 LABORATORY FOR [facility] OF SCREENING [facility] FOR DIABETES MELLITUS K92960 ENCOUNTER 02-10-2016 LABORATORY FOR [facility]ARTIN OF SCREENING [facility] FOR LIPOID DISORDERS Z136 ENCOUNTER 02-10-2016 LABORATORY SCREENING MARTIN OF FOR SUSSY H CARDIOVASCU LAR DISORDERS G04987 ACQUIRED 02-10-2016 LABORATORY ABSENCE OF MARTIN OF BOTH CERVIX [facility]USSY [facility] AND UTERUS X45952 ACQUIRED 02-10-2016 LABORATORY ABSENCE OF MARTIN OF OVARIES [facility]USSY H BILATERAL X44172 OTHER 02-01-2016 [facility] MUSCLE [facility] K219 GASTRO-ESOP 01-25-2016 [facility] H REFLUX FAMILY DISEASE [facility] WITHOUT ESOPHAGITIS 57299 UNSPECIFIED 07-13-2015 [facility] ARTHROPATHY SURGERY , LOWER LEG 44729 PAIN IN 07-13-2015 [facility] GENERAL PELVIC SURGERY REGION AND THIGH 7242 LUMBAGO 07-13-2015 [facility] SUR[facility] 7243 SCIATICA 07-06-2015 [facility] PRIMARY CARE CENTER 04330 SPASM OF 07-06-2015 [facility] MUSCLE PRIMARY CARE CENTER 4611 ACUTE 06-04-2015 [facility] FRONTAL PRIMARY SINUSITIS CARE CENTER 7840 HEADACHE 06-04-2015 [facility] PRIMARY CARE CENTER 7862 COUGH 06-04-2015 [facility] PRIMARY CARE CENTER 48184 OBESITY, 02-10-2015 [facility]PEC[facility] 4019 UNSPECIFIED 02-10-2015 [facility] HYPERTENSIO N 57825 OTHER 02-10-2015 [facility] FATIGUE V8542 BODY MASS 02-10-2015 [facility] 45.0-49.9 ADULT 6259 UNSPEC 06-02-2014 [facility] SYMPTOM PRIMARY ASSOC CARE CENTER W/FEMALE GENITAL ORGANS 6272 SYMPTOMATIC 06-02-2014 [facility] PRIMARY MENOPAUSAL/ CARE CENTER FEMALE CLIMACTERIC STATES 97668 DIARRHEA 06-02-2014 [facility] V4577 ACQUIRED 06-02-2014 [facility] ABSENCE OF PRIMARY ORGAN CARE CENTER GENITAL ORGANS V7231 ROUTINE 06-02-2014 [facility] GYNECOLOGIC PRIMARY AL CARE CENTER EXAMINATION 02816 PAIN IN 03-12-2014 [facility], GENERAL LOWER LEG SURGERY 45162 REGULAR 01-07-2014 JOYNER NERY ASTIGMATISM 92048 PAIN IN 10-10-2013 CAMACHO THO JOINT, ANKLE AND FOOT V7612 OTHER 08-20-2013 [facility] SCREENING REGIONAL MAMMOGRAM MEDICAL V074 HORMONE 07-23-2013 [facility] REPLACEMENT THERAPY 7089 UNSPECIFIED 07-07-2013 [facility] 6826 CELLULITIS 06-29-2013 SALE[facility] AND ABSCESS CHR OF LEG EXCEPT FOOT 88958 MIGRAINE 10-07-2012 [facility] AD[facility]A UNSP W/O INTRACT W/O STATUS MIGRAINOSUS 4619 ACUTE 09-11-2012 [facility] SINUSITIS, UNSPECIFIED 42427 PAIN IN 09-11-2012 [facility] JOINT, SITE UNSPECIFIED 7245 UNSPECIFIED 09-11-2012 NEUS ADITYA BACKACHE V0481 NEED 08-20-2012 [facility] PROPHYLACTI HEALTH C DEPARTMENT VACCINATION &INOCULATIO N FLU 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 [facility] RADIOLOGY SPINE ASSOCIAT UNSPECIFIED 2189 LEIOMYOMA 12-28-2011 SHOWER GATICA OF UTERUS, UNSPECIFIED 6146 PELVIC 12-28-2011 SHOWER GATICA PERITONEAL ADHESIONS, FEMALE 6160 CERVICITIS 12-28-2011 [facility] [place] [facility] ENDOCERVICI TIS 6202 OTHER AND 12-28-2011 [facility] UNSPECIFIED [place] [facility] OVARIAN CYST 6253 DYSMENORRHE 12-28-2011 SHOWER GATICA A V7284 UNSPECIFIED 12-22-2011 [facility] PRE-OPERATI MEDICAL VE EXAMINATION V7283 OTHER 12-14-2011 SHOWER GATICA SPECIFIED PRE-OPERATI VE EXAMINATION 90987 UNSPECIFIED 11-28-2011 BLU NAN GANGLION 7931 NONSPEC 08-27-2011 [facility] OTH EXAM ASSOCIAT BODY STRUCT LUNG FIELD 70161 URGENCY OF 08-09-2011 LABORATORY URINATION & BIODIAGNOST ICS V7381 SPECIAL 08-09-2011 PATHOLOGY & SCREENING CYTOLOGY EXAMINATION LAB HUMAN PAPILVIRUS 2409 GOITER, 08-01-2011 [facility] UNSPECIFIED RADIOLOGY ASSOCIAT 7224 DEGENERATIO 08-01-2011 [facility] N OF RADIOLOGY CERVICAL ASSOCIAT INTERVERTEB RAL DISC 6264 IRREGULAR 07-27-2011 [facility] MENSTRUAL PRIMARY CYCLE CARE CENTER V7791 SCREENING 07-27-2011 [facility] FOR LIPOID PRIMARY DISORDERS CARE CENTER 2564 POLYCYSTIC 07-19-2011 [facility] OVARIES PRIMARY CARE CENTER 6250 DYSPAREUNIA 07-19-2011 [facility] 77426 GENERALIZED 07-18-2011 LABORATORY PAIN & BIODIAGNOST ICS V762 SCREENING 07-18-2011 [facility] FOR PRIMARY MALIGNANT CARE CENTER NEOPLASM OF THE CERVIX 52970 UNSPECIFIED 03-28-2011 [facility] PRIMARY ARTHROPATHY CARE CENTER SITE UNSPECIFIED 460 ACUTE 03-09-2011 [facility] NASOPHARYNG PRIMARY ITIS CARE CENTER 490 BRONCHITIS 02-10-2011 [facility] SPECIFIED MEDICAL ACUTE OR CHRONIC 28646 OTHER 02-10-2011 [facility] DISEASES OF RADIOLOGY LUNG NOT ASSOCIAT ELSEWHERE CLASSIFIED 7841 THROAT PAIN 02-10-2011 [facility] 3540 CARPAL 12-12-2010 [facility] TUNNEL PRIMARY SYNDROME CARE CENTER 7273 OTHER 12-12-2010 [facility] BURSITIS PRIMARY DISORDERS CARE CENTER 63728 ESOPHAGEAL 10-04-2010 [facility] REFLUX PRIMARY CARE CENTER V679 UNSPECIFIED 10-04-2010 [facility] FOLLOW-UP PRIMARY EXAMINATION CARE CENTER 50257 UNSPECIFIED 09-07-2010 [facility] VAGINITIS PRIMARY AND CARE CENTER VULVOVAGINI TIS 6248 OTH SPEC 09-07-2010 [facility] NONINFLAMMA PRIMARY TORY CARE CENTER DISORDER VULVA&PERIN EUM 5206 DISTURBANCE 02-24-2010 [facility] IN TOOTH AGARWAL ERUPTION 5680 PERITONEAL 12-01-2009 [facility] V252 STERILIZATI 12-01-2009 [facility] H ANESTHESIA PSC V2509 OTH GENERAL 11-29-2009 [facility] PRIMARY CNSL&ADVICE CARE CONTRACEPT CENTERINC MANAGEMENT 53257 CHRONIC 10-20-2009 [facility] TENSION PRIMARY TYPE CARE HEADACHE CENTERINC V242 ROUTINE 10-20-2009 [facility] PRIMARY FOLLOW-UP CARE CENTERINC 82896 DIAB W/O 10-19-2009 [facility] COMP TYPE PRIMARY II/UNS NOT CARE STATED CENTERINC UNCNTRL 462 ACUTE 10-19-2009 [facility] PHARYNGITIS PRIMARY CARE CENTERINC V700 ROUTINE 10-19-2009 [facility] GENERAL PRIMARY MEDICAL CARE EXAM@HEALTH CENTERINC CARE FACL 51672 POST TERM 09-08-2009 [facility] PG DELIV PRIMARY W/WO CARE MENTION CENTERINC ANTPRTM COND V270 OUTCOME OF 09-08-2009 [facility] DELIVERY PRIMARY SINGLE CARE LIVEBORN CENTERINC 650 NORMAL 09-06-2009 [facility] DELIVERY H ANESTHESIA PSC V221 SUPERVISION 08-30-2009 [facility] OF OTHER PRIMARY NORMAL CARE CENTERINC V286 SCREENING 08-10-2009 [facility] 7821 RASH AND 07-23-2009 [facility] OTHER PRIMARY NONSPECIFIC CARE SKIN CENTERINC ERUPTION 7028 OTHER 06-28-2009 [facility] SPECIFIED PRIMARY DERMATOSES CARE CENTERINC 73120 UNS 04-30-2009 [facility] ABNORM MGMT PRIMARY MOTH CARE ANTPRTM CENTERINC COND/COMP V237 INSUFFICIEN 04-30-2009 [facility] T PRIMARY CARE CARE CENTERINC V222 03-24-2009 [facility] STATE, PRIMARY INCIDENTAL CARE CENTERINC 68274 REFLUX 02-24-2009 [facility] ESOPHAGITIS PRIMARY CARE CENTERINC 463 ACUTE 11-02-2008 Severo BAEUR TONSILLITIS L 6269 UNS D/O 09-16-2008 [facility] MENSTRUATIO PRIMARY N&OTH ABN CARE BLEED FE CENTERINC GNT TRACT 57092 UNSPECIFIED 01-28-2008 [facility] Medications Na ND Rx Da Fi [...] 50 1- 7- 00 06 S ve TX 10 20 20 51 PH N 21 17 17 19 AR HC 0 38 MA L CY 50 0 MG TA BL ET ME 23 04 05 30 30 00 DE Ac TF 15 -2 -2 .0 00 AN ti OR 50 6- 6- 00 06 S ve TX 10 20 20 51 PH N 21 [...] 50 1- 1- 00 06 S ve TX 10 20 20 51 PH N 21 [...] 50 0- 0- 00 06 S ve TX 10 20 20 50 PH N 21 [...] PH ZA 71 17 17 99 AR MT 0 37 MA IN CY E 10 MG TA BL ET ME 23 12 01 60 30 00 DE Ac TF 15 -0 -0 .0 00 AN ti OR 50 2- 9- 00 06 S ve TX 10 20 20 49 PH N 21 [...] PH ZA 71 16 17 99 AR MT 0 37 MA IN CY E 10 [...] 0 28 14 DE 64 SH Ac MT 71 -1 -1 .0 AN 15 OW [...] ER GY ON N E FA 15 TX 0 LY MG /M HE L AL TH BU 00 08 08 0 20 3 MA 60 YO Ac TA 59 -2 -2 .0 YS 49 UN ti LB 13 4- 4- 00 09 G ve -A 36 20 20 LL 2 KA CE 90 11 11 E TH TA 1 OB RY TX N N- GY CA N FF FA TX 50 LY -3 25 HE -4 AL [...] 2 60 30 DE 64 KE Ac MT 09 -0 -0 .0 AN 10 EF [...] 09 09 AR RY TA 2 MA TX CY HATCH N- RO CA LD FF [...] L 5 CY MG TA BL ET MT 37 12 12 00 28 28 RE [...] Procedure DOS Code Location Performer Comment RADEX 66700 RADIOLOGY CURE SPINE 7 INC CERVICAL 4 OR 5 VIEWS SIMPLE 73511 [facility] REPAIR 6 [facility] SCALP/NEC INC INC K/AX/HENRIK T/TRUNK 2.5CM/< IM ADM 84290 [facility] PRQ ID 6 [facility] SUBQ/IM INC INC NJXS 1 VACCINE ASSAY OF 03-17-201 00170 LAB [facility] THYROID 6 SUSSY SUSSY STIMULATI HOLDINGS HOLDINGS NG HORMONE TSH COMPREHEN 51671 LAB [facility] LAB MARTIN SIVE 6 SUSSY SUSSY METABOLIC HOLDINGS HOLDINGS PANEL IADNA 79771 LABORATOR LABORATOR HUMAN 6 Y MARTIN OF Y MARTIN OF [place] [facility] VIRUS [facility] H HIGH-RISK TYPES CYTP C/V 35618 LABORATOR LABORATOR AUTO THIN 6 Y MARTIN OF Y MARTIN OF LYR [facility] PREPJ SCR H H MNL RESCR PHYS LIPID 35695 LAB [facility] LAB [facility]IN PANEL 6 SUSSY SUSSY HOLDINGS HOLDINGS LIPOPROTE 49948 LAB M[facility]IN LAB MARTIN IN BLOOD 6 SUSSY SUSSY EDEN HOLDINGS HOLDINGS NUMBERS & SUBCLASSE S RADEX 41861 RADIOLOGY STEVEN SPINE 6 INC ITZEL CERVICAL 4 OR 5 VIEWS RADEX 36943 [facility] ZAVALA SPINE 6 FAMILY CERVICAL HEALTH 2 OR 3 CTR VIEWS INJECTION J1885 [facility] GARRETT LUCAS 6 FAMILY KETOROLAC [facility]ALTH CTR TR[place] INE PER 15 MG THERAPEUT 84090 AL[facility] ZAVALA IC 6 FAMILY PROPHYLAC HEALTH TIC/DX CTR INJECTION SUBQ/IM RADEX HIP 37688 LUIS DIAZ OSMEL 5 W GENERAL UNILATERA SURGERY L COMPLETE MINIMUM 2 VIEWS RADEX 11839 LUIS DIAZ OSMEL SPINE 5 W GENERAL LUMBOSACR SURGERY AL 2/3 VIEWS INJ J0702 ALYSE ZAVALA BETAMETHA 5 PRIMARY SONE CARE ACETATE & CENTER PHOSPHATE 3 MG THERAPEUT 98072 [facility] ZAVALA IC 5 PRIMARY PROPHYLAC CARE TIC/DX CENTER INJECTION SUBQ/IM 25 51675 [facility]DROX[facility] 5 DIAGNOSTI DIAGNOSTI INCLUDES CS CS FRACTIONS IF PERFORMED GENERAL 53016 [facility] 5 DIAGNOSTI DIAGNOSTI PANEL CS CS COLLECTIO 74853 [facility] N VENOUS 5 DIAGNOSTI DIAGNOSTI BLOOD CS CS VENIPUNCT URE INJECTION J1885 ALYSE DRAPER DEN 4 PRIMARY KETOROLAC CARE CENTER TROMETHAM INE PER 15 MG THERAPEUT 52934 ALYSE CO GORE DEN IC 4 PRIMARY PROPHYLAC CARE TIC/DX CENTER INJECTION SUBQ/IM BLOOD 31164 LAB M[facility]IN LAB MARTIN COUNT 4 SUSSY SUSSY COMPLETE HOLDINGS HOLDINGS AUTO&AUTO DIFRNTL WBC URNLS DIP 24494 LAB M[facility]IN LAB MARTIN 4 SUSSY SUSSY STICK/TAB HOLDINGS HOLDINGS LET RGNT AUTO W/O MICROSCOP Y SEDIMENTA 14514 LAB M[facility]IN LAB MARTIN TION RATE 4 SUSSY SUSSY RBC HOLDINGS HOLDINGS AUTOMATED CULTURE 63334 LAB M[facility]IN LAB MARTIN BACTERIAL 4 SUSSY SUSSY HOLDINGS HOLDINGS QUANTTATI VE COLONY COUNT URINE RADIOLOGI 77725 LUIS BOLIVAR C 4 W GENERAL EXAMINATI SURGERY ON KNEE 1/2 VIEWS INJECTION J3301 LUIS BOLIVAR 4 W GENERAL TRIAMCINO SURGERY LONE ACETONIDE NOS 10 MG ARTHROCEN 03021 LUIS BOLIVAR TESIS 4 W GENERAL ASPIR&/IN SURGERY J MAJOR JT/BURSA W/O OPHTH 03518 [facility] 4 XM&EVAL COMPRHNSV ESTAB PT 1/> RADEX 41561 JANICE GARCIAS FOOT 3 THO THO COMPLETE MINIMUM 3 VIEWS SCREENING G0202 LUIS SMITH 3 W W MAMMOGRAP [facility] INCL CAD WHEN PERFORMD COMPUTER- 39338 LUIS SMITH AIDED 3 W W [facility] MEDICAL SCREENING MAMMOGRAP HY THERAPEUT 90340 NEUS ADITYA NEUS ADITYA IC 2 PROPHYLAC TIC/DX INJECTION SUBQ/IM INJECTION J1885 NEUS ADITYA NEUS ADITYA 2 KETOROLAC [place] INE PER 15 MG INJECTION J1885 NEUS ADITYA NEUS ADITYA 2 KETOROLAC [place]ETH[place] INE PER 15 MG THERAPEUT 45990 NEUS ADITYA NEUS ADITYA IC 2 PROPHYLAC TIC/DX INJECTION SUBQ/IM THERAPEUT 15644 NEUS ADITYA NEUS ADITYA IC 2 PROPHYLAC TIC/DX INJECTION SUBQ/IM INJECTION J1040 NEUS ADITYA NEUS ADITYA 2 METHYLPRE DNISOLONE ACETATE 80 MG INJECTION J1885 NEUS ADITYA NEUS ADITYA 2 KETOROLAC [place] INE PER 15 MG IIV3 19706 ARABELLA BELL VACCINE 2 CO HEALTH CO HEALTH SPLIT VIRUS 0.5 DEPARTMEN DEPARTMEN ML T T DOSAGE IM USE RADIOLOGI 76765 [facility] C 2 EIDER AFUA EXAMINATI RADIOLOGY ON ASSOCIAT SACROILIA C JNTS <3 VIEWS RADEX 43486 [facility] SACRUM & 2 COCCYX DIAGNOSTI DIAGNOSTI MINIMUM 2 C CENTER, C CENTER, VIEWS RADEX 86605 [facility] SPINE 2 EIDER AFUA LUMBOSACR RADIOLOGY AL ASSOCIAT MINIMUM 4 VIEWS INJECTION J1885 NEUS ADITYA NEUS ADITYA 2 KETOROLAC [place] INE PER 15 MG THERAPEUT 24118 NEUS ADITYA NEUS ADITYA IC 2 PROPHYLAC TIC/DX INJECTION SUBQ/IM LEVEL V 87404 [facility] CAROLANN SURG 2 [place] [facility] JAM PATHOLOGY GROSS&LEANNE ROSCOPIC EXAM LAPS 64245 SHOWER SHOWER TOTAL 2 GATICA GATICA HYSTERECT 250 GM/< W/RMVL TUBE/OVAR Y ANESTHESI 80352 [facility] [place] A 2 LTH ANT INTRAPERI ANESTHESI TONEAL A PSC LOWER ABD W/LAPS NOS COMPREHEN 72469 MEAD[facility] MEADOWVIE SIVE 2 W W METABOLIC REGIONAL REGIONAL PANEL MEDICAL MEDICAL COLLECTIO 77205 MEAD[facility]IE MEADOWVIE N VENOUS 2 W W BLOOD REGIONAL REGIONAL VENIPUNCT MEDICAL MEDICAL URE BLOOD 53632 MEADOW[facility]IE MEADOWVIE COUNT 2 W W COMPLETE REGIONAL REGIONAL AUTO&AUTO MEDICAL MEDICAL DIFRNTL WBC URNLS DIP 40458 MEAD[facility]IE MEADOWVIE 2 W W STICK/TAB REGIONAL REGIONAL LET MEDICAL MEDICAL REAGENT AUTO MICROSCOP Y RADIOLOGI 33322 [facility] AHMADI C EXAM 2 PEDRO KNEE RADIOLOGY COMPLETE ASSOCIAT 4/MORE VIEWS RADIOLOGI 12463 [facility] C 1 EIDER AFUA EXAMINATI RADIOLOGY ON CHEST ASSOCIAT SINGLE VIEW FRONTAL CULTURE 37057 LABORATOR LABORATOR BACTERIAL 1 Y & Y & BIODIAGNO BIODIAGNO QUANTTATI STICS STICS VE COLONY COUNT URINE IADNA 96208 PATHOLOGY PATHOLOGY PAPILLOMA 1 & & VIRUS CYTOLOGY CYTOLOGY HUMAN LAB LAB AMPLIFIED PROBE TQ CYTP C/V 29244 LABORATOR LABORATOR AUTO THIN 1 Y & Y & LYR BIODIAGNO BIODIAGNO PREPJ SCR STICS STICS MNL RESCR PHYS URNLS DIP 25296 LABORATOR LABORATOR 1 Y & Y & STICK/TAB BIODIAGNO BIODIAGNO LET STICS STICS REAGENT AUTO MICROSCOP Y MRI BRAIN 76933 KALEY GARCIA BRAIN 1 MONISHA STEM W/[place] [address] KALEY GARCIA CERVICAL 1 MONISHA SPINE W/O RADIOLOGY CONTRAST ASSOCIAT MATERIAL COLLECTIO 31404 AL[facility]SE MACIAS N VENOUS 1 PRIMARY BLOOD [place] [address] LABORATOR LABORATOR TESTOSTER 1 Y & Y & ONE FREE BIODIAGNO [place] [address] LABORATOR LABORATOR TESTOSTER 1 Y & Y & ONE TOTAL BIODIAGNO BIODIAGNO STICS STICS GLUCOSE 90878 LABORATOR LABORATOR QUANTITAT 1 Y & Y & CHANDRAKANT BLOOD BIODIAGNO BIODIAGNO XCPT STICS STICS REAGENT STRIP HEMOGLOBI 64736 LABORATOR LABORATOR N 1 Y & Y & GLYCOSYLA BIODIAGNO BIODIAGNO CAR[place] A1[place] [address] LABORATOR LABORATOR INSULIN 1 Y & Y & TOTAL BIODIAGNO BIODIAGNO STICS STICS LIPID 28502 LABORATOR LABORATOR PANEL 1 Y & Y & BIODIAGNO BIODIAGNO STICS STICS GLUCOSE 52326 LABORATOR LABORATOR POST 1 Y & Y & GLUCOSE BI[place] [address] ALYSE MACIAS TRANSVAGI 1 PRIMARY NAL CARE CENTER THERAPEUT 34926 ALYSE MACIAS IC 1 PRIMARY PROPHYLAC CARE TIC/DX CENTER INJECTION SUBQ/IM THERAPEUT 34679 ALYSE JO IC 1 PRIMARY DON PROPHYLAC CARE TIC/DX CENTER INJECTION SUBQ/IM BLOOD 19773 LABORATOR LABORATOR COUNT 1 Y & Y & COMPLETE BIODIAGNO BIODIAGNO AUTO&AUTO STICS STICS DIFRNTL WBC URINE 39717 ALYSE JO 1 PRIMARY DON TEST CARE VISUAL CENTER COLOR CMPRSN METHS URNLS DIP 87607 LABORATOR LABORATOR 1 Y & Y & STICK/TAB BIODIAGNO BIODIAGNO LET STICS STICS REAGENT AUTO MICROSCOP Y CULTURE 98317 LABORATOR LABORATOR BACTERIAL 1 Y & Y & BIODIAGNO BIODIAGNO QUANTTATI STICS STICS VE COLONY COUNT URINE IADNA 17526 LABORATOR LABORATOR CHLAMYDIA 1 Y & Y & BIODIAGNO BIODIAGNO TRACHOMAT STICS STICS IS AMPLIFIED PROBE TQ INJECTION J1885 ALYSE JO 1 PRIMARY DON KETOROLAC CARE CENTER TROMETHAM INE PER 15 MG COLLECTIO 57028 ALYSE Rodgers VENOUS 1 PRIMARY PRIMARY BLOOD CARE CARE VENIPUNCT CENTER CENTER URE BASIC 28239 LABORATOR LABORATOR METABOLIC 1 Y & Y & PANEL BIODIAGNO BIODIAGNO [place] [address] LABORATOR LABORATOR THYROID 1 Y & Y & STIMULATI BIODIAGNO BIODIAGNO NG STICS STICS HORMONE TSH IADNA 84007 LABORATOR LABORATOR NEISSERIA 1 Y & Y & BIODIAGNO BIODIAGNO GONORRHOE STICS STICS AE AMPLIFIED PROBE TQ C-REACTIV 52707 LABORATOR LABORATOR E PROTEIN 1 Y & Y & BIODIAGNO BIODIAGNO STICS STICS COLLECTIO 05386 ALYSE TIAN N VENOUS 1 PRIMARY BLOOD CARE VENIPUNCT CENTER URE RHEUMATOI 37161 LABORATOR LABORATOR D FACTOR 1 Y & Y & QUANTITAT BIODIAGNO BIODIAGNO CHANDRAKANT STICS STICS IAADIADOO 97794 ALYSE TIAN 1 PRIMARY STREPTOCO CARE CCUS CENTER GROUP A IAADIADOO 81251 LUIS SMITH 1 W W STREPTOCO REGIONAL REGIONAL CCUS MEDICAL MEDICAL GROUP A RADIOLOGI 70132 LUIS SMITH C EXAM 1 W W CHEST 2 [facility] VIEWS MEDICAL MEDICAL FRONTAL&L ATERAL CUL 37369 MEADOWVIE MEADOWVIE PRSMPTV 1 W W PTHGNC [facility] ORGANISM MEDICAL MEDICAL SCRN W/COLONY ESTIMJ SMR PRIM 46769 ALYSE JO SRC WET 0 PRIMARY DON [facility] NFCT AGT CENTER CUL BACT 18090 LABORATOR LABORATOR XCPT 0 Y & Y & URINE BIODIAGNO BIODIAGNO BLOOD/STO STICS STICS OL AEROBIC ISOL CULTURE 96365 LABORATOR LABORATOR BACTERIAL 0 Y & Y & ANY BIODIAGNO BIODIAGNO SOURCE STICS STICS ANAEROBIC ISO&ID SMR PRIM 24372 LABORATOR LABORATOR SRC 0 Y & Y & GRAM/GIEM BIODIAGNO BIODIAGNO SA STAIN STICS STICS BCT FUNGI/RONALD L DEEP D9220 LAZARO AGARWAL SEDATION/ 0 Bertrand Martinez GENERAL ANESTHESI A-1ST 30 MINUTES RADIOLOGI 33846 Michelle DELACRUZ EXAM 0 Bertrand Martinez TEETH COMPLETE FULL MOUTH ANES IPER 71489 [facility] TRISHA, LWR ABD 0 LTH ALLI E W/LAPS ANESTHESI TUBAL A PSC LIGATION/ TRANSECT OCCLUSION 48181 MEAD[facility]IE MEADOWVIE FLP TUBE 0 W W DEV [facility] VAG/SUPRA MEDICAL MEDICAL PUBIC CENTER CENTER APPR LAPAROSCO 67338 ALYSE SCHILLING MEESE, PY 0 PRIMARY THIERNO P FULGURATI CARE ON CENTERINC OVIDUCTS CULTURE 72782 MEADOWVIE MEADOWVIE BACTERIAL 0 W W [facility] QUANTTATI MEDICAL MEDICAL VE COLONY CENTER CENTER COUNT URINE COLLECTIO 53372 MEADOWVIE MEADOWVIE N VENOUS 0 W W BLOOD [facility] VENIPUNCT MEDICAL MEDICAL URE CENTER CENTER URINE 09755 MEADOWVIE MEADOWVIE 0 W W TEST [facility] VISUAL [facility] MEDICAL COLOR [facility]ENTER CENTER CMPRSN METHS POTASSIUM 64781 MEADOWVIE MEADOWVIE SERUM 0 W W PLASMA/WH [facility] OLE BLOOD [facility] CENTER BLOOD 07031 MEADOWVIE MEADOWVIE COUNT 0 W W COMPLETE [facility] AUTO&AUTO MEDICAL MEDICAL DIFRNTL CENTER CENTER WBC URNLS DIP 26012 MEAWASHA MEADOWVIE 0 W W STICK/TAB [facility] LET [facility] MEDICAL REAGENT [facility]ENTER CENTER AUTO MICROSCOP Y LIPID 15468 MEADOWVIE MEADOWVIE PANEL 9 W W [facility] CENTER HEMOGLOBI 47943 [place] MEADOWVIE N 9 W W GLYCOSYLA [facility] CENTER BLOOD 94359 MEADOWVIE MEADOWVIE COUNT 9 W W COMPLETE [facility] AUTO&AUTO MEDICAL MEDICAL DIFRNTL CENTER CENTER WBC COLLECTIO 10383 [place] OSBORNEWASHA N VENOUS 9 W W BLOOD [facility] VENIPUNCT [facility] [address] [place] OSBORNEWASHA THYROID 9 W W STIMULATI [facility] NG [facility] HORMONE [facility] CENTER TSH BASIC 85886 LUIS OSBORNEWVIE METABOLIC 9 W W PANEL [facility] CALCIUM [facility] TOTAL CENTER CENTER INJECTION [id number] ALYSE SEARS, 9 PRIMARY ELVIRA E KETOROLAC CARE CENTERINC TROMETHAM INE PER 15 MG THERAPEUT 10327 ALYSE SEARS, 9 PRIMARY ELVIRA E PROPHYLAC CARE TIC/DX CENTERINC INJECTION SUBQ/IM OPHTH 42809 [facility] 9 VISION KYLE A XM&EVAL COMPRHNSV ESTAB PT 1/> HOSPITAL 57839 ALYSE SPIVEY, DISCHARGE 9 PRIMARY THIERNO P DAY CARE MANAGEMEN CENTERINC T 30 MIN/< SBSQ 58233 ALYSE SPIVEY, HOSPITAL 9 PRIMARY THIERNO P CARE/DAY CARE 15 CENTERINC MINUTES VAGINAL 19330 ALYSE SPIVEY, DELIVERY 9 PRIMARY THIERNO P ONLY CARE CENTERINC NEURAXIAL 29553 [facility] 9 LTH , [place] ANALG/ANE ANESTHESI S PLND A PSC VAGINAL DELIVERY OTHER 7359 [place] MANUALLY 9 W W ASSISTED [facility] DELIVERY MEDICAL [facility]ICAL [facility] MEDICAL 734 MEADOWVIE MEADOWVIE INDUCTION 9 W W OF LABOR [facility] CENTER URNLS DIP 55370 ALYSE SPIVEY, 9 PRIMARY THIERNO P STICK/TAB CARE LET RGNT CENTERINC NON-AUTO W/O MICRSCP 63755 ALYSE PARIKH, NONSTRESS 9 PRIMARY JORDIN A TEST CARE CENTERINC URNLS DIP 22500 ALYSE PARIKH, 9 PRIMARY JORDIN A STICK/TAB CARE LET RGNT CENTERINC NON-AUTO W/O MICRSCP URNLS DIP 82371 ALYSE JO, 9 PRIMARY CLINT R STICK/TAB CARE LET RGNT CENTERINC NON-AUTO W/O MICRSCP URNLS DIP 63768 ALYSE LEON, 9 PRIMARY JOHANNA STICK/TAB CARE LET RGNT CENTERINC NON-AUTO W/O MICRSCP CUL 21976 LUIS SMITH PRSMPTV 9 W [facility] W/COLONY ESTIMJ URNLS DIP 51200 ALYSE LEON, 9 PRIMARY JOHANNA STICK/TAB CARE LET RGNT CENTERINC NON-AUTO W/O MICRSCP URNLS DIP 80653 ALYSE NEW, 9 PRIMARY KRISTAL J STICK/TAB CARE LET RGNT CENTERINC NON-AUTO W/O MICRSCP COLLECTIO 44397 ALYSE NEW, N 9 PRIMARY KRISTAL J CAPILLARY CARE BLOOD CENTERINC SPECIMEN URNLS DIP 88091 ALYSE SCHILLING SHOWER, 9 PRIMARY AKILAH L STICK/TAB CARE LET RGNT CENTERINC NON-AUTO W/O MICRSCP URNLS DIP 81091 ALYSE JARAMILLO, 9 PRIMARY REGINALDO W STICK/TAB CARE LET RGNT CENTERINC NON-AUTO W/O MICRSCP GLUCOSE 07659 [facility] 9 [facility] INC GLUCOSE DOSE COLLECTIO 00426 ALYSE JARAMILLO, N VENOUS 9 PRIMARY REGINALDO W BLOOD CARE VENIPUNCT CENTERINC URE URNLS DIP 44771 ALYSE SPIVEY, 9 PRIMARY THIERNO P STICK/TAB CARE LET RGNT CENTERINC NON-AUTO W/O MICRSCP US PREG 83156 ALYSE SCHILLING MEESE, UTERUS 9 PRIMARY THIERNO P W/DETAIL CARE CENTERINC SERGIO 1ST GESTATION URNLS DIP 07195 ALYSE LEON, 9 PRIMARY JOHANNA STICK/TAB CARE LET RGNT CENTERINC NON-AUTO W/O MICRSCP IADNA 95306 [facility] [place] 9 [facility] GONORRHOE AE AMPLIFIED PROBE TQ IADNA 74306 [facility] [place] 9 [facility] TRACHOMAT IS AMPLIFIED PROBE TQ CYTP 01025 [facility] CERV/VAG 9 [facility] AUTO THIN LAYER PREP MNL SCREEN URNLS DIP 87481 ALYSE SCHILLING EDWARD, 9 PRIMARY JOHANNA STICK/TAB CARE LET RGNT CENTERINC NON-AUTO W/O MICRSCP COLLECTIO 60087 ALYSE LEON, N VENOUS 9 PRIMARY [place] [address] ALYSE TONIE LEON, 9 PRIMARY JOHANNA UTERUS 14 CARE WK CENTERINC TRANSABDL GESTAT URINE 89692 ALYSE SCHILLING DEL 9 PRIMARY KENNEY TEST CARE DECALVO, VISUAL CENTERINC LENA COLOR NGOZI V CMPRSN METHS DESTRUCTI 24337 [facility], ON 8 POINT CORTES PREMALIGN FAMILY ANT CARE, [employer]ES[employer] INC. 1ST Encounters Encounter Start End Date Code Location Performer Type Date EMERGENCY 30656 [facility] 7 7 URIEL DEPARTMEN EMERGENCY T VISIT PHYS HIGH/URGE NT SEVERITY HOSPITAL [facility] - 6 6 [facility] OUT[facility]IEN INC T EMERGENCY 32734 [facility] 6 6 [facility] DEPARTMEN INC T VISIT MODERATE SEVERITY OFFICE 76653 ALYSE ZAVALA OUTPATIEN 6 6 FAMILY T VISIT HEALTH 15 CTR MINUTES OFFICE 12420 ALYSE ZAVALA OUTPATIEN 6 6 FAMILY T VISIT HEALTH 15 CTR MINUTES OFFICE 72116 ALYSE ZAVALA OUTPATIEN 6 6 FAMILY T VISIT HEALTH 15 CTR MINUTES OFFICE 77490 ALYSE ZAVALA OUTPATIEN 6 6 FAMILY T VISIT HEALTH 25 CTR MINUTES OFFICE 12091 LUIS BOLIVAR OUTPATIEN 5 5 W GENERAL T VISIT SURGERY 15 MINUTES OFFICE 05930 ALYSE GARRETT LUCAS OUTPATIEN 5 5 PRIMARY T VISIT CARE 25 CENTER MINUTES OFFICE 80967 ALYSE GARRETT LUCAS OUTPATIEN 5 5 PRIMARY T VISIT CARE 15 CENTER MINUTES OFFICE 03630 ALYSE DRAPER DEN OUTPATIEN 5 5 PRIMARY T VISIT CARE 15 CENTER MINUTES OFFICE 13846 ALYSE DRAPER DEN OUTPATIEN 4 4 PRIMARY T VISIT CARE 15 CENTER MINUTES OFFICE 96138 ALYSE SCHILLING SHOWER OUTPATIEN 4 4 PRIMARY [place] T VISIT CARE 25 CENTER MINUTES PERIODIC 16186 ALYSE SCHILLING SHOWER PREVENTIV 4 4 PRIMARY [place] E MED EST CARE PATIENT CENTER 18-39 YRS OFFICE 91375 LUIS BOLIVAR OUTPATIEN 4 4 W GENERAL T NEW 30 SURGERY MINUTES HOSPITAL [facility] 62946 LIMAE DEN OUTPATIEN 3 3 T VISIT 15 MINUTES EMERGENCY 02277 NELIDA JO 3 3 EMERGENCY MAINE DEPARTMEN SERVICES T VISIT HIGH/URGE NT SEVERITY EMERGENCY 60825 THERESE SALEH 3 3 CHR CHR DEPARTMEN T VISIT HIGH/URGE NT SEVERITY OFFICE 20636 NEUS ADITYA OUTPATIEN 2 2 T VISIT 25 MINUTES OFFICE 16145 NEUS ADITYA OUTPATIEN 2 2 T VISIT 25 MINUTES HOSPITAL LUIS - 2 2 W OUTPATIEN REGIONAL T MEDICAL OFFICE 81998 SHOWER SHOWER OUTPATIEN 2 2 EN GATICA T VISIT 40 MINUTES OFFICE 11266 BLU HURT OUTPATIEN 2 2 LEXI ELLIOTT T VISIT 25 MINUTES OFFICE 22495 ALYSE LEON COLLEEN OUTPATIEN 1 1 PRIMARY T VISIT CARE 15 CENTER MINUTES OFFICE 50546 ALYSE LEON COLLEEN OUTPATIEN 1 1 PRIMARY T VISIT CARE 15 CENTER MINUTES PERIODIC 99280 ALYSE JO PREVENTIV 1 1 PRIMARY DON E MED EST CARE PATIENT CENTER 18-39 YRS OFFICE 22379 ALYSE TIAN OUTPATIEN 1 1 PRIMARY T VISIT CARE 15 CENTER MINUTES OFFICE 74081 ALYSE TIAN OUTPATIEN 1 1 PRIMARY T VISIT CARE 15 CENTER MINUTES HOSPITAL [place]IE - 1 1 W OUTPATIEN REGIONAL T MEDICAL EMERGENCY 29844 LUIS 1 1 W DEPARTMEN REGIONAL T VISIT MEDICAL MODERATE SEVERITY EMERGENCY 11113 NELIDA SALEH 1 1 [facility] T VISIT HIGH/URGE NT SEVERITY OFFICE 14317 ALYSE SCHILLING KING OUTPATIEN 1 1 PRIMARY WAD T VISIT CARE 15 CENTER MINUTES OFFICE 72973 ALYSE JO OUTPATIEN 0 0 PRIMARY DON T VISIT CARE 15 CENTER MINUTES OFFICE 36278 ALYSE JO OUTPATIEN 0 0 PRIMARY DON T VISIT CARE 15 CENTER MINUTES OFFICE 83076 BRENNA DELACRUZ 0 0 [facility] 20 MINUTES HOSPITAL MEADOWVIE - 0 0 W OUTPATIEN [facility] HOSPITAL MEADOWVIE - 0 0 W [facility]ER[facility] OFFICE 72219 ALYSE SPIVEY OUTPATIEN 0 0 PRIMARY THIERNO P T VISIT CARE 25 CENTERINC MINUTES HOSPITAL LUIS - 9 9 W [facility] OFFICE 07186 ALYSE SPIVEY OUTPATIEN 9 9 PRIMARY THIERNO P T VISIT CARE 25 CENTERINC MINUTES OFFICE 76830 ALYSE SEARS OUTPATIEN 9 9 PRIMARY ELVIRA E T VISIT CARE 25 CENTERINC MINUTES OFFICE 07440 ALYSE QUINTEROS OUTPATIEN 9 9 PRIMARY Y, KATHLEEN T VISIT CARE V 15 CENTERINC MINUTES HOSPITAL LUIS - 9 9 W [facility] OFFICE 84363 ALYSE SPIVEY OUTPATIEN 9 9 PRIMARY THIERNO P T VISIT CARE 15 CENTERINC MINUTES OFFICE 94134 BRENNA MCGUIRE 9 9 PRIMARY JORDIN A T VISIT CARE 15 CENTERINC MINUTES OFFICE 47475 ALYSE JO OUTDONOVAN 9 9 PRIMARY CLINT R T VISIT CARE 15 CENTERINC MINUTES HOSPITAL LUIS - 9 9 W [facility] OFFICE 64565 BRENNA TAM 9 9 PRIMARY JOHANNA T VISIT CARE 15 CENTERINC MINUTES OFFICE 17403 ALYSE LEON OUTPATIJOEY 9 9 PRIMARY JOHANNA T VISIT CARE 15 CENTERINC MINUTES OFFICE 77324 ALYSE QUINTEROS OUTPATIEN 9 9 PRIMARY Y, KATHLEEN T VISIT CARE V 15 CENTERINC MINUTES OFFICE 56256 ALYSE NEW OUTDONOVAN 9 9 PRIMARY KRISTAL J T VISIT CARE 15 CENTERINC MINUTES OFFICE 10570 ALYSE HOOVER OUTPATIEN 9 9 PRIMARY AKILAH L T VISIT CARE 15 CENTERINC MINUTES OFFICE 73055 BRENNA VENCES 9 9 PRIMARY REGINALDO W T VISIT CARE 15 CENTERINC MINUTES OFFICE 83651 ALYSE SPIVEY, OUTPATIEN 9 9 PRIMARY THIERNO P T VISIT CARE 15 CENTERINC MINUTES OFFICE 92153 ALYSE SPIVEY, OUTPATIEN 9 9 PRIMARY THIERNO P T VISIT CARE 15 CENTERINC MINUTES OFFICE 29640 ALYSE CO EDWARD OUTPATIEN 9 9 PRIMARY JOHANNA T VISIT CARE 15 CENTERINC MINUTES OFFICE 57955 ALYSE CO EDWARD OUTPATIEN 9 9 PRIMARY JOHANNA T VISIT CARE 15 CENTERINC MINUTES OFFICE 24166 ALYSE DUKE OUTPATIEN 9 9 PRIMARY KENNEY T VISIT CARE DECALVO, 15 CENTERINC LENA MINUTES NGOZI V OFFICE 85605 ALYSE ALFARO OUTPATIEN 9 9 PRIMARY RAYSHAWN E T VISIT CARE 25 CENTERINC MINUTES OFFICE 91967 LIZETTE BAUER OUTPATIEN 8 8 M L M L T VISIT 15 MINUTES OFFICE 49416 LIZETTE BAUER OUTPATIEN 8 8 M L M L T VISIT 15 MINUTES OFFICE 70868 BRENNA RODRIGUEZ 8 8 PRIMARY THIERNO P T VISIT CARE 15 CENTERINC MINUTES OFFICE 49220 [facility] BRENNA COSTA 8 8 POINT CORTES T VISIT FAMILY 15 CARE, MINUTES INC.
--- OUTSIDE RECORDS SUMMARY | 2017-06-21 01:37 | External Medical Summary Rpt ---
Demographics Preferred Language Egyptian Marital Status Unknown Catholic Affiliation Unknown Race Unknown Ethnic Group Unknown Author Author , RACQUEL CLEMENT Address Unknown Phone Immunization Unable to retrieve immunization data due to connection failure with Immunization Registry. Please try again later.
--- OUTSIDE RECORDS SUMMARY | 2017-06-21 01:37 | External Medical Summary Rpt ---
Author Author RACQUEL Toro, [employer] Organization [employer] Address Unknown Phone Unavailable
--- OUTSIDE RECORDS SUMMARY | 2017-06-21 01:37 | External Medical Summary Rpt ---
Demographics Preferred Language Mongolian Marital Status Unknown Judaism Affiliation Unknown Race Unknown Ethnic Group Unknown Author Author , RACQUEL CLEMENT Address Unknown Phone Immunization Unable to retrieve immunization data due to connection failure with Immunization Registry. Please try again later.
[2017-06-21 01:40] VITALS: BP 126/83
--- NOTE | 2017-06-21 06:50 | RADIOLOGY REPORT PS360 ---
ANKLE-LT-3 VIEWS HISTORY: Posttraumatic pain ANKLE PAIN ORDERING PHYSICIAN: Khang Pham MD PATIENT AGE: 37 years COMPARISON: None FINDINGS: No fracture or dislocation. No lytic or blastic change. There is normal mineralization.. The joint spaces are well-preserved. No significant degenerative/arthritic changes. No erosive changes evident. IMPRESSION: Negative ankle, no acute finding
--- NOTE | 2017-06-21 06:51 | RADIOLOGY REPORT PS360 ---
FOOT-LT-3 VIEWS HISTORY: Posttraumatic pain LEFT FOOT PAIN ORDERING PHYSICIAN: Khang Pham MD PATIENT AGE: 37 years COMPARISON: None FINDINGS: No fracture or dislocation. No lytic or blastic change. There is normal mineralization.. There are minimal osteoarthritic changes of the first metatarsophalangeal joint. Normal alignment. No gross. Minimal spurring along the dorsal aspect of the navicular. IMPRESSION: 1. No acute fracture. 2. Mild degenerative change
== END 2017-06-21 01:41 | disposition home or self-care (01) ==
LOC: ER 00:37
DX: S93.402A Sprain of unspecified ligament of left ankle, initial encounter (principal); S93.602A Unspecified sprain of left foot, initial encounter; W01.0XXA Fall on same level from slipping, tripping and stumbling without subsequent striking against object, initial encounter; Y92.69 Other specified industrial and construction area as the place of occurrence of the external cause; Y99.0 Civilian activity done for income or pay